=== PATIENT | female | born 1945 | race African-American/Black ===

== ENCOUNTER 2017-07-28 10:06 | Inpatient (IN) | payer OTHER, MEDICARE ==
[~2017-07-28] VITALS: Ht 162.6 cm; Wt 53.2 kg
[2017-07-28] VITALS (19 sets, daily range): BP systolic 152–209; BP diastolic 85–126; PULSE 76–100; RESP 15–18; TEMP 96.9–98.9; O2SAT 96–100
[~2017-07-28 10:06] MED LIST: CALC667T PO; CARV3.125 PO; CENTCHW3 PO; FURO1TAB93 PO; HYDRA50 PO; ISOS30 PO; LABE100 PO
[2017-07-28] MEDS ORDERED: SODIUM CHLORIDE 0.9% FLUSH 10 ML FLUSH IVF PRN (10:30)
[2017-07-28] MEDS ORDERED: hydrALAZINE HCL 25 MG TAB PO ONE (10:30)
--- NOTE | 2017-07-28 10:30 | PD ---
HPI Chief Complaint: Fall Time Seen by Provider: 10:14 Travel History International Travel<30 days: No Contact w/Intl Traveler<30days: No Traveled to known affect area: No History of Present Illness HPI 71 y/o female presents with her with reports that she had a fall and lost consciousness last night. She states she does not know how she fell. She states she hit her head. She denies any specific pain. Her states she has not had dialysis in a couple of months and is not taking her medications for her blood pressure. The patient states she does not know her medications but she would know them if she saw the bottle. She states she has not seen a physician for a couple of months. She cannot tell me whether she was told she could stop the dialysis or she just stopped it on her own. History is very limited PFS Past Medical History Asthma: No Autoimmune Disease: No Blood Disorders: No Anxiety: No Depression: No Heart Rhythm Problems: No Cancer: No Cardiovascular Problems: Yes (htn) High Cholesterol: Yes Chest Pain: Yes Congestive Heart Failure: Yes COPD: No Diabetes: No Endocrine: No Gastrointestinal Disorders: Yes Genitourinary: Yes Hepatitis: No Hiatal Hernia: No Hypertension: Yes Immune Disorder: No Implanted Vascular Access Dvce: Yes Musculoskeletal: No Neurologic: No Psychiatric: No Reproductive: No Respiratory: No Myocardial Infarction: No Renal Failure: Yes Thyroid Disease: No ?: Not Menopausal: Yes : 4 Past Surgical History Abdominal Surgery: No AICD: No Cardiac Surgery: No Section: Yes (*2) Ear Surgery: No Endocrine Surgery: No Eye Surgery: No Genitourinary Surgery: No Gynecologic Surgery: Yes (C SECTION, HYSTERECTOMY) Hysterectomy: Yes Joint Replacement: No Oral Surgery: No Pacemaker: No Thoracic Surgery: No Other Surgery: Yes (brain ) Social History Alcohol Use: No Tobacco Use: No Substance Use: No Allergies-Medications (Allergen,Severity, Reaction): Coded Allergies: No Known Allergies (Verified , 04/09/16) Reported Meds & Prescriptions Reported Meds & Active Scripts Active Review of Systems ROS Limitations: Poor Historian Except as stated in HPI: all other systems reviewed are Neg Physical Exam Exam Limitations: Poor Historian Narrative GENERAL: 71-year-old female in no apparent distress SKIN: Focused skin assessment warm/dry. HEAD: Atraumatic. Normocephalic. EYES: Pupils equal and round. No scleral icterus. No injection or drainage. ENT: No nasal bleeding or discharge. Mucous membranes pink and moist. NECK: Trachea midline. No JVD. Nontender in midline of her spine CARDIOVASCULAR: Regular rate and rhythm. No murmur appreciated. RESPIRATORY: No accessory muscle use. Clear to auscultation at apices. Breath sounds equal bilaterally. GASTROINTESTINAL: Abdomen soft, non-tender, nondistended. Hepatic and splenic margins not palpable. MUSCULOSKELETAL: No specific pain with range of motion of joints NEUROLOGICAL: Awake and alert. No obvious cranial nerve deficits. Motor grossly within normal limits. Normal speech. Data Data Last Documented VS Vital Signs Date Time Temp Pulse Resp B/P (MAP) Pulse Ox O2 Delivery O2 Flow Rate FiO2 07/28/17 12:05 76 18 194/94 (127) 97 Nasal Cannula 2.00 07/28/17 10:23 98.0 Orders Orders Electrocardiogram (07/28/17 10:23) Complete Blood Count With Diff (07/28/17 10:23) Comprehensive Metabolic Panel (07/28/17 10:23) Magnesium (Mg) (07/28/17 10:23) Ckmb (Isoenzyme) Profile (07/28/17 10:23) Troponin I (07/28/17 10:23) Act Partial Throm Time (Ptt) (07/28/17 10:23) Prothrombin Time / Inr (Pt) (07/28/17 10:23) Chest, Single Ap (07/28/17 10:23) Ct Brain W/O Iv Contrast(Rout) (07/28/17 10:23) Ecg Monitoring (07/28/17 10:23) Iv Access Insert/Monitor (07/28/17 10:23) Oximetry (07/28/17 10:23) Sodium Chloride 0.9% Flush (Ns Flush) (07/28/17 10:30) Pelvis, Ap Only (Routine) (07/28/17 ) Hydralazine (Apresoline) (07/28/17 10:30) CKMB (07/28/17 10:36) CKMB% (07/28/17 10:36) B-Type Natriuretic Peptide (07/28/17 11:43) Hydralazine (Apresoline) (07/28/17 11:45) Admit Order (Ed Use Only) (07/28/17 12:09) Labs Laboratory Tests Test 07/28/17 10:36 White Blood Count 4.7 TH/MM3 Red Blood Count 3.35 MIL/MM3 Hemoglobin 10.4 GM/DL Hematocrit 31.5 % Mean Corpuscular Volume 94.1 FL Mean Corpuscular Hemoglobin 31.0 PG Mean Corpuscular Hemoglobin Concent 33.0 % Red Cell Distribution Width 16.3 % Platelet Count 143 TH/MM3 Mean Platelet Volume 11.8 FL Neutrophils (%) (Auto) 73.0 % Lymphocytes (%) (Auto) 12.4 % Monocytes (%) (Auto) 9.1 % Eosinophils (%) (Auto) 2.7 % Basophils (%) (Auto) 2.8 % Neutrophils # (Auto) 3.4 TH/MM3 Lymphocytes # (Auto) 0.6 TH/MM3 Monocytes # (Auto) 0.4 TH/MM3 Eosinophils # (Auto) 0.1 TH/MM3 Basophils # (Auto) 0.1 TH/MM3 CBC Comment AUTO DIFF Differential Comment AUTO DIFF CONFIRMED Platelet Estimate NORMAL Platelet Morphology Comment ENLARGED Ovalocytes 1+ Acanthocytes OCC Keratocytes OCC Prothrombin Time 12.3 SEC Prothromb Time International Ratio 1.2 RATIO Activated Partial Thromboplast Time 25.3 SEC Blood Urea Nitrogen 78 MG/DL Creatinine 4.99 MG/DL Random Glucose 82 MG/DL Total Protein 6.9 GM/DL Albumin 3.6 GM/DL Calcium Level 9.1 MG/DL Magnesium Level 2.1 MG/DL Alkaline Phosphatase 122 U/L Aspartate Amino Transf (AST/SGOT) 38 U/L Alanine Aminotransferase (ALT/SGPT) 53 U/L Total Bilirubin 0.4 MG/DL Sodium Level 141 MEQ/L Potassium Level 4.7 MEQ/L Chloride Level 113 MEQ/L Carbon Dioxide Level 17.0 MEQ/L Anion Gap 11 MEQ/L Estimat Glomerular Filtration Rate 10 ML/MIN Total Creatine Kinase 242 U/L Creatine Kinase MB 6.6 NG/ML Creatine Kinase MB % 2.7 % Troponin I 0.05 NG/ML MDM Medical Decision Making Medical Screen Exam Complete: Yes Emergency Medical Condition: Yes Medical Record Reviewed: Yes (Past history confirmed) Interpretation(s) CBC & BMP Diagram 07/28/17 10:36 Total Protein 6.9, Albumin 3.6, Calcium Level 9.1, Magnesium Level 2.1, Alkaline Phosphatase 122 H, Aspartate Amino Transf (AST/SGOT) 38 H, Alanine Aminotransferase (ALT/SGPT) 53, Total Bilirubin 0.4 Last [address] 07/28/17 1023 Signed Impressions: Service Date/Time: Friday, July 28, 2017 11:15 - CONCLUSION: 1. Chronic ischemic small vessel vasculopathy. No acute intracranial abnormality. Justin Herrmann MD Chest X-Ray 07/28/17 1023 Signed Impressions: Service Date/Time: Friday, July 28, 2017 11:25 - CONCLUSION: 1. Cardiomegaly with increase in pulmonary vascularity. No pulmonary edema. Justin Herrmann MD Pelvis X-Ray 07/28/17 0000 Signed Impressions: Service Date/Time: Friday, July 28, 2017 11:27 - CONCLUSION: No acute fracture. Justin Herrmann MD Differential Diagnosis Syncope, electrolyte abnormality, bleed, hypertensive urgency Narrative Course On review of records patient has history where she stopped dialysis for buddhism reasons for a couple months and arrived with fluid overload. Her blood pressure at that time was controlled with hydralazine, Lasix, Imdur. We will check blood work, EKG, chest x-ray and dose with hydralazine and reevaluate We will repeat hydralazine to prior home dose for a total of 75 mg and admit to the hospital for further care. Physician Communication Physician Communication resident team agrees to admit Diagnosis Primary Impression: Syncope Qualified Codes: R55 - Syncope and collapse Additional Impressions: [id number] kidney injury Qualified Codes: N17.9 - Acute kidney failure, unspecified; N18.9 - Chronic kidney disease, unspecified Hypertension Qualified Codes: I10 - Essential (primary) hypertension Admitting Information Admitting Physician Requests: Admit Jaky Tao MD Jul 28, 2017 10:30
[2017-07-28 10:54] LABS: AUTOMATED NEUTROPHIL # 3.4 TH/MM3 (1.8-7.7); BASOPHIL # 0.1 TH/MM3 (0-0.2); BASOPHIL % 2.8 % (0.0-2.0); EOSINOPHIL # 0.1 TH/MM3 (0-0.4); EOSINOPHIL % 2.7 % (0.0-4.0); HEMATOCRIT 31.5 % (35.0-46.0); HEMOGLOBIN 10.4 GM/DL (11.6-15.3); LYMPH % 12.4 % (9.0-44.0); LYMPHOCYTE # 0.6 TH/MM3 (1.0-4.8); MEAN CELL VOLUME 94.1 FL (80.0-100.0); MEAN PLATELET VOLUME 11.8 FL (7.0-11.0); MONO % 9.1 % (0.0-8.0); MONOCYTE # 0.4 TH/MM3 (0-0.9); PLATELET COUNT 143 TH/MM3 (150-450); RED BLOOD COUNT 3.35 MIL/MM3 (4.00-5.30); RED CELL DISTRIBUTION WIDTH 16.3 % (11.6-17.2); WHITE BLOOD COUNT 4.7 TH/MM3 (4.0-11.0)
[2017-07-28 11:03] LABS: INTERNATIONAL NORMALIZED RATIO 1.2 RATIO; PROTHROMBIN TIME - PATIENT 12.3 SEC (9.8-11.6)
[2017-07-28 11:16] LABS: ALBUMIN 3.6 GM/DL (3.4-5.0); AST (GOT) 38 U/L (15-37); BLOOD UREA NITROGEN 78 MG/DL (7-18); CALCIUM 9.1 MG/DL (8.5-10.1); CHLORIDE 113 MEQ/L (98-107); CREATININE 4.99 MG/DL (0.50-1.00); GLOMERULAR FILTRATION RATE 10 ML/MIN (>89); GLUCOSE,RANDOM 82 MG/DL (74-106); MAGNESIUM 2.1 MG/DL (1.5-2.5); SODIUM (NA) 141 MEQ/L (136-145)
[2017-07-28 11:17] LABS: ALT (GPT) 53 U/L (10-53)
[2017-07-28 11:21] LABS: ALKALINE PHOSPHATASE 122 U/L (45-117); TOTAL BILIRUBIN ADULT 0.4 MG/DL (0.2-1.0); TOTAL PROTEIN 6.9 GM/DL (6.4-8.2); TROPONIN I 0.05 NG/ML (0.02-0.05)
--- NOTE | 2017-07-28 11:39 | RADRPT ---
EXAM DATE/TIME: 07/28/2017 11:25 [facility] COMPARISON: CHEST SINGLE AP, April 09, 2016, 18:13. INDICATIONS : Possible syncopal episode. MEDICAL HISTORY : Hypertension. Congestive heart failure. SURGICAL HISTORY : None. ENCOUNTER: Initial ACUITY: 1 day PAIN SCORE: 0/10 LOCATION: Bilateral chest FINDINGS: A single view of the chest demonstrates the lungs to be symmetrically aerated without evidence of mas s, infiltrate or effusion. Cardiomegaly with increase in pulmonary vascularity. The cardiomediastinal contours are unremarkable. Osseous structures are intact. CONCLUSION: 1. Cardiomegaly with increase in pulmonary vascularity. No pulmonary edema. Justin Herrmann MD on July 28, 2017 at 11:37 Board Certified Radiologist. This report was verified electronically.
--- NOTE | 2017-07-28 11:40 | RADRPT ---
EXAM DATE/TIME: 07/28/2017 11:27 [facility] COMPARISON: No previous studies available for comparison. INDICATIONS : Fall; possible syncopal episode. MEDICAL HISTORY : None. SURGICAL HISTORY : None. ENCOUNTER: Initial ACUITY: 1 day PAIN SCORE: 0/10 LOCATION: Bilateral pelvis FINDINGS: A single frontal view of the pelvis demonstrates no evidence of fracture. Mild degenerative changes o f each hip and lower lumbar spine. The bony pelvic ring is intact. Bony mineralization is normal. T he soft tissues are intact. CONCLUSION: No acute fracture. Justin Herrmann MD on July 28, 2017 at 11:37 Board Certified Radiologist. This report was verified electronically.
--- NOTE | 2017-07-28 11:43 | RADRPT ---
EXAM DATE/TIME: 07/28/2017 11:15 [facility] COMPARISON: CT BRAIN W/O CONTRAST, December 27, 2014, 3:18. INDICATIONS : Dizziness, fall, LOC, yesterday. RADIATION DOSE: 56.35 CTDIvol (mGy) MEDICAL HISTORY : Cardiovascular disease. Congestive heart failure. Hypertension.Renal failure SURGICAL HISTORY : Hysterectomy. ENCOUNTER: Initial ACUITY: 2 days PAIN SCALE: 0/10 LOCATION: cranial TECHNIQUE: Multiple contiguous axial images were obtained of the head. Using automated exposure control and adj ustment of the mA and/or kV according to patient size, radiation dose was kept as low as reasonably a chievable to obtain optimal diagnostic quality images. DICOM format image data is available electro nically for review and comparison. FINDINGS: CEREBRUM: Areas of low-attenuation are seen throughout the white matter. The ventricles are normal for age. No evidence of midline shift, mass lesion, hemorrhage or acute infarction. No extra-axial fluid collec tions are seen. POSTERIOR FOSSA: The cerebellum and brainstem are intact. The 4th ventricle is midline. The cerebellopontine angle i s unremarkable. EXTRACRANIAL: The visualized portion of the orbits is intact. SKULL: The calvaria is intact. No evidence of skull fracture. CONCLUSION: 1. Chronic ischemic small vessel vasculopathy. No acute intracranial abnormality. Justin Herrmann MD on July 28, 2017 at 11:41 Board Certified Radiologist. This report was verified electronically.
[2017-07-28] MEDS ORDERED: hydrALAZINE HCL 50 MG TAB PO ONE (11:45)
[2017-07-28 11:47] LABS: ACANTHOCYTES OCC (NORMAL); KERATOCYTES OCC (NORMAL); OVALOCYTES 1+ (NORMAL)
--- NOTE | 2017-07-28 13:24 | HHI.HP ---
[facility] Service Family Medicine Primary Care Physician Thong Leon MD Admission Diagnosis syncope, renal failure Diagnoses: International Travel<30 Days: No Contact w/Intl Traveler<30days: No Known Affected Area: No History of Present Illness 71 y/o F, comes in after fall last night. She came into the ER today because the brought her in out of concern that she needs her dialysis. She has gone 6 weeks without dialysis and per patient her hand spring repairer told her she could stop dialysis for as long as she wants because it is only going to prolong her life for a few years. She has continued to have a good appetite and eat well. Denies any dizzyness, mental change, or fatigue. She has continued to urinate multiple times per day. She states she overall feels very good without the dialysis. She has some R elbow pain from the fall last night but she does not have pain anywhere else. She did not lose consciousness at the time of the fall. She does not have any residual headache. She denies any CP/SOB/dizziness. Denies any fever/chills. Denies any recent flu/cold sx. Dr. Leon PCP - last seen >1 year ago Dialysis doctor - last seen months ago (Sarah Iniguez MD R2) Review of Systems Constitutional: DENIES: Fatigue, Fever Endocrine: DENIES: Polydipsia, Polyuria Eyes: DENIES: Diplopia, Eye inflammation Ears, nose, mouth, throat: DENIES: Nasal discharge, Oral lesions Respiratory: DENIES: Shortness of breath Cardiovascular: DENIES: Dyspnea on Exertion, PND Gastrointestinal: DENIES: Black stools, Bloody stools Genitourinary: DENIES: Dysuria, Nocturia Musculoskeletal: DENIES: Back pain Integumentary: DENIES: Rash Neurologic: DENIES: Headache, Localized weakness Psychiatric: DENIES: Depression, Hallucinations (Sarah Iniguez MD R2) Past Family Social History Past Medical History Past Medical History Hypertension Gastroesophageal reflux disease Chronic kidney disease stage 4. used to be on HD ( last one was 3 months ago Diabetic neuropathy? Per EMR pt has the diagnosis below, however pt Pt denies them as she states she wasn't aware. Cataract/glaucoma Congestive heart failure, pulmonary hypertension - Echo 2016 : LVH, EF 50-55%, severely increased pulmonary artery pressure (66) Dyslipidemia ?History of pseudotumor cerebri? /History of idiopathic intracranial hypertension? 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 SKIN: No rashes, ecchymoses or lesions. Cool and dry. HEAD: Atraumatic. Normocephalic. No temporal or scalp tenderness. EYES: Pupils equal round and reactive. Extraocular motions intact. No scleral icterus. No injection or drainage. ENT: Nose without bleeding, purulent drainage or septal hematoma. Throat without erythema, tonsillar hypertrophy or exudate. Uvula midline. Airway patent. NECK: Trachea midline. No JVD or lymphadenopathy. Supple, nontender, no meningeal signs. CARDIOVASCULAR: Regular rate and rhythm without murmurs, gallops, or rubs. RESPIRATORY: Clear to auscultation. Breath sounds equal bilaterally. No wheezes , rales, or rhonchi. GASTROINTESTINAL: Abdomen soft, non-tender, nondistended. No hepato-splenomegaly , or palpable masses. No guarding. MUSCULOSKELETAL: AV fistula in place on L arm. Extremities without clubbing, cyanosis, or edema. No joint tenderness, effusion, or edema noted. No calf tenderness. Negative Homans sign bilaterally. NEUROLOGICAL: Awake and alert. Cranial nerves II through XII intact. Motor and sensory grossly within normal limits. Five out of 5 muscle strength in all muscle groups. Normal speech. Laboratory Laboratory Tests Test 07/28/17 10:36 White Blood Count 4.7 Red Blood Count 3.35 Hemoglobin 10.4 Hematocrit 31.5 Mean Corpuscular Volume 94.1 Mean Corpuscular Hemoglobin 31.0 Mean Corpuscular Hemoglobin Concent 33.0 Red Cell Distribution Width 16.3 Platelet Count 143 Mean Platelet Volume 11.8 Neutrophils (%) (Auto) 73.0 Lymphocytes (%) (Auto) 12.4 Monocytes (%) (Auto) 9.1 Eosinophils (%) (Auto) 2.7 Basophils (%) (Auto) 2.8 Neutrophils # (Auto) 3.4 Lymphocytes # (Auto) 0.6 Monocytes # (Auto) 0.4 Eosinophils # (Auto) 0.1 Basophils # (Auto) 0.1 CBC Comment AUTO DIFF Differential Comment AUTO DIFF CONFIRMED Platelet Estimate NORMAL Platelet Morphology Comment ENLARGED Ovalocytes 1+ Acanthocytes OCC Keratocytes OCC Prothrombin Time 12.3 Prothromb Time International Ratio 1.2 Activated Partial Thromboplast Time 25.3 Blood Urea Nitrogen 78 Creatinine 4.99 Random Glucose 82 Total Protein 6.9 Albumin 3.6 Calcium Level 9.1 Magnesium Level 2.1 Alkaline Phosphatase 122 Aspartate Amino Transf (AST/SGOT) 38 Alanine Aminotransferase (ALT/SGPT) 53 Total Bilirubin 0.4 Sodium Level 141 Potassium Level 4.7 Chloride Level 113 Carbon Dioxide Level 17.0 Anion Gap 11 Estimat Glomerular Filtration Rate 10 Total Creatine Kinase 242 Creatine Kinase MB 6.6 Creatine Kinase MB % 2.7 Troponin I 0.05 (Sarah Iniguez MD R2) Result Diagram: 07/28/17 1036 07/28/17 1036 Caprini VTE Risk Assessment Caprini VTE Risk Assessment: No/Low Risk (score <= 1) Caprini Risk Assessment Model Point Value = 1 Point Value = 2 Point Value = 3 Point Value = 5 Age 41-60 Minor surgery BMI > 25 kg/m2 Swollen legs Varicose veins or History of unexplained or recurrent spontaneous Oral contraceptives or hormone replacement Sepsis (< 1 month) Serious lung disease, including pneumonia (< 1 month) Abnormal pulmonary function Acute myocardial infarction Congestive heart failure (< 1 month) History of inflammatory bowel disease Medical patient at bed rest Age 61-74 Arthroscopic surgery Major open surgery (> 45 min) Laparoscopic surgery (> 45 min) Malignancy Confined to bed (> 72 hours) Immobilizing plaster cast Central venous access Age >= 75 History of VTE Family history of VTE Factor V Leiden Prothrombin [id number] Lupus anticoagulant Anticardiolipin antibodies Elevated serum homocysteine Heparin-induced thrombocytopenia Other congenital or acquired thrombophilia Stroke (< 1 month) Elective arthroplasty Hip, pelvis, or leg fracture Acute spinal cord injury (< 1 month) Prophylaxis Regimen Total Risk Factor Score Risk Level Prophylaxis Regimen 0-1 Low Early ambulation 2 Moderate Order ONE of the following: *Sequential Compression Device (SCD) *Heparin 5000 units SQ BID 3-4 Higher Order ONE of the following medications: *Heparin 5000 units SQ TID *Enoxaparin/Lovenox 40 mg SQ daily (WT < 150 kg, CrCl > 30 mL/min) *Enoxaparin/Lovenox 30 mg SQ daily (WT < 150 kg, CrCl > 10-29 mL/min) *Enoxaparin/Lovenox 30 mg SQ BID (WT < 150 kg, CrCl > 30 mL/min) AND/OR *Sequential Compression Device (SCD) 5 or more Highest Order ONE of the following medications: *Heparin 5000 units SQ TID (Preferred with Epidurals) *Enoxaparin/Lovenox 40 mg SQ daily (WT < 150 kg, CrCl > 30 mL/min) *Enoxaparin/Lovenox 30 mg SQ daily (WT < 150 kg, CrCl > 10-29 mL/min) *Enoxaparin/Lovenox 30 mg SQ BID (WT < 150 kg, CrCl > 30 mL/min) AND *Sequential Compression Device (SCD) (Sarah Iniguez MD R2) Assessment and Plan Assessment and Plan 71-year-old female, past medical history of hypertension, end-stage renal disease on dialysis and CHF, presents after a prolonged period without dialysis and creatinine of 4.9. Patient has a history of noncompliance with medications and dialysis treatments. Code Status Alternative code - No compressions - Temporary intubation allowed Discussed Condition With Dr. Carpenter (Sarah Iniguez MD R2) Attending Attestation Patient seen and examined, discussed with resident team. I agree with assessment and management as documented and discussed with me. The patient has been seen and examined. The chart and all resident notes have been reviewed. I agree that inpatient care is appropriate and that a two midnight stay is expected for the reasons documented in the resident history and physical. I have discussed this with the resident and certify the resident s order for inpatient admission. Amanda Chávez is a 71 yo lady with known ESRD originally on dialysis admitted after a fall. She was found to be profoundly hypertensive in the ER and apparently has not had dialysis for 6-8 weeks. Additional diagnoses: Anemia of chronic disease: stable. No obvious active bleeding. Will monitor. (Che Carpenter MD) Problem List: (1) End stage renal disease on dialysis ICD Codes: N18.6 - End stage renal disease; Z99.2 - Dependence on renal dialysis Status: Chronic Plan: Creatinine 4.9, BUN 78 Follow-up with hand spring repairer consult known to patient Follow-up BMP in a.m. Caution with IV fluid hydration Monitor for signs of uremia (2) Hypertension ICD Codes: I10 - Hypertension Status: Chronic Plan: Blood Pressure 200/94 on admission Follow up BPs Add amlodipine 10 mg daily Hydralazine when necessary (3) Elevated troponin ICD Codes: R74.8 - Abnormal levels of other serum enzymes Status: Acute Plan: Initial troponin 0.05, patient is chest pain-free Follow-up troponin and EKG trend (4) CHF (congestive heart failure) ICD Codes: I50.9 - Heart failure, unspecified Status: Chronic Plan: CHF and pulmonary hypertension on echocardiogram in 2016 Follow up repeat echo BNP over 5000 Chest x-ray with cardiomegaly and increase in pulmonary vascularity, no pulmonary edema Cautious IV fluids (5) GERD (gastroesophageal reflux disease) ICD Codes: K21.9 - Gastro-esophageal reflux disease without esophagitis Status: Chronic Plan: Protonix 40 daily (6) FEN/Ppx Status: Acute Plan: Fluids: PO Electrolytes: f/u BMP in AM and replete accordingly Nutrition: renal diet GI ppx: protonix DVT ppx: Heparin 5000 TID (Sarah Iniguez MD R2) Physician Certification 2 Midnight Certification Type: Admission for Inpatient Services Order for Inpatient Services The services are ordered in accordance with Medicare regulations or non- Medicare payer requirements, as applicable. In the case of services not specified as inpatient-only, they are appropriately provided as inpatient services in accordance with the 2-midnight benchmark. Estimated LOS (days): 2 days is the estimated time the patient will need to remain in the hospital, assuming treatment plan goals are met and no additional complications. Post-Hospital Plan: Not yet determined (Sarah Iniguez MD R2) Problem Qualifiers (1) Hypertension: Qualified Codes: I10 - Essential (primary) hypertension (2) CHF (congestive heart failure): Qualified Codes: I50.9 - Heart failure, unspecified (3) GERD (gastroesophageal reflux disease): Qualified Codes: K21.9 - Gastro-esophageal reflux disease without esophagitis Sarah Iniguez MD R2 Jul 28, 2017 13:24 Che Carpenter MD Jul 29, 2017 16:19
[2017-07-28] MEDS ORDERED: BISACODYL 10 MG SUPP RECTAL PRN (14:45)
[2017-07-28] MEDS ORDERED: SODIUM CHLORIDE 0.9% FLUSH 10 ML FLUSH IV FLUSH PRN (14:45)
[2017-07-28] MEDS ORDERED: ONDANSETRON HCL 4 MG/2 ML VIAL IVP PRN (14:45)
[2017-07-28] MEDS ORDERED: ACETAMINOPHEN 325 MG TAB PO PRN (14:45)
[2017-07-28] MEDS ORDERED: MAGNESIUM HYDROXIDE SUSP 30 ML CUP PO PRN (14:45)
[2017-07-28] MEDS ORDERED: NALOXONE HCL 0.4 MG/ML AMP IV PUSH PRN (14:45)
[2017-07-28] MEDS ORDERED: LACTULOSE SYRUP 20 GM/30 ML CUP PO PRN (14:45)
[2017-07-28] MEDS ORDERED: SENNOSIDES 8.6 MG TAB PO PRN (14:45)
[2017-07-28] MEDS: PANTOPRAZOLE SOD 40 MG DELAYED RELEASE TAB PO SCH (15:34)
[2017-07-28] MEDS: HEPARIN SODIUM - SQ 10,000 UNITS/ML VIAL SQ SCH ×2 (15:34→23:35)
--- NOTE | 2017-07-28 16:08 | PD.CONS ---
HPI Service Nephrology Consult Requested By Dr. Carpenter Reason for Consult End-stage renal disease Primary Care Physician Thong Leon MD History of Present Illness Patient is a 71-year-old female with history of hypertension, chronic kidney disease, ESRD, who states that that she has stopped her dialysis after talking to Dr. Valencia, last dialysis was 3 months ago and she has been maintaining, she was moving some furniture and had a fall after which she became short of breath and she came to the emergency blood pressure was high a creatinine is 4.9 She denies history of diabetes mellitus mentioned in the records Review of Systems Constitutional: COMPLAINS OF: Fatigue Respiratory: COMPLAINS OF: Shortness of breath Musculoskeletal: COMPLAINS OF: Joint pain, Muscle aches Past Family Social History Allergies: Coded Allergies: No Known Allergies (Verified , 04/09/16) Past Medical History Hypertension Gastroesophageal reflux disease Chronic kidney disease stage 5. used to be on HD last one was months ago Diabetic ? Cataract/glaucoma Congestive heart failure Dyslipidemia History of pseudotumor cerebri? /History of idiopathic intracranial hypertension Past Surgical History Hysterectomy AV fistula left Reported Medications Reported Meds & Active Scripts Active Active Ordered Medications Current Medications Medications (Trade) Dose Ordered Sig/So Route Start Time Stop Time Status Last Admin (NS Flush) 2 ml UNSCH PRN IV FLUSH 07/28/17 14:45 (NS Flush) 2 ml BID IV FLUSH 07/28/17 21:00 (Tylenol) 650 mg Q4H PRN PO 07/28/17 14:45 (Zofran Inj) 4 mg Q6H PRN IVP 07/28/17 14:45 (Heparin Inj) 5,000 units Q8H SQ 07/28/17 15:00 07/28/17 15:34 (Narcan Inj) 0.4 mg UNSCH PRN IV PUSH 07/28/17 14:45 (Milk Of Magnesia Liq) 30 ml Q12H PRN PO 07/28/17 14:45 (Senokot) 17.2 mg Q12H PRN PO 07/28/17 14:45 (Dulcolax Supp) 10 mg DAILY PRN RECTAL 07/28/17 14:45 (Lactulose Liq) 30 ml DAILY PRN PO 07/28/17 14:45 (Apresoline Inj) 10 mg Q6H PRN IV PUSH 07/28/17 15:15 (Norvasc) 10 mg DAILY PO 07/28/17 15:15 07/28/17 15:34 (Protonix) 40 mg DAILY PO 07/28/17 15:15 07/28/17 15:34 Family History Noncontributory Social History Denies smoking or alcohol use Physical Exam Vital Signs Vital Signs Date Time Temp Pulse Resp B/P (MAP) Pulse Ox O2 Delivery O2 Flow Rate FiO2 07/28/17 15:25 97.5 82 18 180/85 (116) 100 07/28/17 14:31 88 18 152/96 (114) 99 Room Air 07/28/17 13:26 92 18 172/105 (127) 97 Nasal Cannula 2.00 07/28/17 12:05 76 18 194/94 (127) 97 Nasal Cannula 2.00 07/28/17 11:54 76 18 202/114 (143) 96 Room Air 07/28/17 10:35 96 18 99 Room Air 07/28/17 10:26 97 Nasal Cannula 2.00 07/28/17 10:23 98.0 85 18 209/126 (153) 100 07/28/17 10:07 96.9 94 18 200/94 (129) 96 Laboratory Laboratory Tests Test 07/28/17 10:36 White Blood Count 4.7 Red Blood Count 3.35 Hemoglobin 10.4 Hematocrit 31.5 Mean Corpuscular Volume 94.1 Mean Corpuscular Hemoglobin 31.0 Mean Corpuscular Hemoglobin Concent 33.0 Red Cell Distribution Width 16.3 Platelet Count 143 Mean Platelet Volume 11.8 Neutrophils (%) (Auto) 73.0 Lymphocytes (%) (Auto) 12.4 Monocytes (%) (Auto) 9.1 Eosinophils (%) (Auto) 2.7 Basophils (%) (Auto) 2.8 Neutrophils # (Auto) 3.4 Lymphocytes # (Auto) 0.6 Monocytes # (Auto) 0.4 Eosinophils # (Auto) 0.1 Basophils # (Auto) 0.1 CBC Comment AUTO DIFF Differential Comment AUTO DIFF CONFIRMED Platelet Estimate NORMAL Platelet Morphology Comment ENLARGED Ovalocytes 1+ Acanthocytes OCC Keratocytes OCC Prothrombin Time 12.3 Prothromb Time International Ratio 1.2 Activated Partial Thromboplast Time 25.3 Blood Urea Nitrogen 78 Creatinine 4.99 Random Glucose 82 Total Protein 6.9 Albumin 3.6 Calcium Level 9.1 Magnesium Level 2.1 Alkaline Phosphatase 122 Aspartate Amino Transf (AST/SGOT) 38 Alanine Aminotransferase (ALT/SGPT) 53 Total Bilirubin 0.4 Sodium Level 141 Potassium Level 4.7 Chloride Level 113 Carbon Dioxide Level 17.0 Anion Gap 11 Estimat Glomerular Filtration Rate 10 Total Creatine Kinase 242 Creatine Kinase MB 6.6 Creatine Kinase MB % 2.7 Troponin I 0.05 Result Diagram: 07/28/17 1036 07/28/17 1036 Assessment and Plan Problem List: (1) End stage renal disease on dialysis ICD Codes: N18.6 - End stage renal disease; Z99.2 - Dependence on renal dialysis Status: Acute Plan: Patient has a very low GFR She does not wish to continue dialysis And it was discontinued I will check PTH, vitamin D 25 level and phosphorus She would like to talk to Dr. Valencia (2) Hypertension ICD Codes: I10 - Hypertension Status: Chronic Plan: Uncontrolled continue to monitor Problem Qualifiers (1) Hypertension: Qualified Codes: I10 - Essential (primary) hypertension Sheila Parker MD Jul 28, 2017 16:08
[2017-07-28] MEDS: SODIUM CHLORIDE 0.9% FLUSH 10 ML FLUSH IV FLUSH SCH (20:05)
[2017-07-28] MEDS: hydrALAZINE HCL 20 MG/ML VIAL IV PUSH PRN (23:40)
[2017-07-29] VITALS (23 sets, daily range): BP systolic 138–185; BP diastolic 77–111; PULSE 70–90; RESP 16–20; TEMP 97.7–98.7; O2SAT 95–100
[2017-07-29] MEDS: HEPARIN SODIUM - SQ 10,000 UNITS/ML VIAL SQ SCH ×3 (07:21→23:00)
[2017-07-29 08:05] LABS: AUTOMATED NEUTROPHIL # 3.4 TH/MM3 (1.8-7.7); BASOPHIL # 0.1 TH/MM3 (0-0.2); BASOPHIL % 2.5 % (0.0-2.0); EOSINOPHIL # 0.1 TH/MM3 (0-0.4); EOSINOPHIL % 2.9 % (0.0-4.0); HEMATOCRIT 33.7 % (35.0-46.0); HEMOGLOBIN 11.2 GM/DL (11.6-15.3); LYMPH % 9.3 % (9.0-44.0); LYMPHOCYTE # 0.4 TH/MM3 (1.0-4.8); MEAN CELL VOLUME 92.6 FL (80.0-100.0); MEAN CORPUSCULAR HEMOGLOBIN 30.7 PG (27.0-34.0); MEAN CORPUSCULAR HGB CONC 33.2 % (32.0-36.0); MEAN PLATELET VOLUME 11.7 FL (7.0-11.0); MONO % 7.6 % (0.0-8.0); MONOCYTE # 0.3 TH/MM3 (0-0.9); NEUT % 77.7 % (16.0-70.0); PLATELET COUNT 150 TH/MM3 (150-450); RED BLOOD COUNT 3.64 MIL/MM3 (4.00-5.30); RED CELL DISTRIBUTION WIDTH 16.4 % (11.6-17.2); WHITE BLOOD COUNT 4.4 TH/MM3 (4.0-11.0)
[2017-07-29] MEDS: PANTOPRAZOLE SOD 40 MG DELAYED RELEASE TAB PO SCH (08:08)
[2017-07-29] MEDS: hydrALAZINE HCL 20 MG/ML VIAL IV PUSH PRN (08:08)
[2017-07-29 08:13] LABS: INTERNATIONAL NORMALIZED RATIO 1.2 RATIO; PROTHROMBIN TIME - PATIENT 12.4 SEC (9.8-11.6)
[2017-07-29 08:30] LABS: ALBUMIN 3.3 GM/DL (3.4-5.0); ALT (GPT) 45 U/L (10-53); AST (GOT) 30 U/L (15-37); BICARBONATE 16.5 MEQ/L (21.0-32.0); BLOOD UREA NITROGEN 75 MG/DL (7-18); CALCIUM 8.4 MG/DL (8.5-10.1); CHLORIDE 112 MEQ/L (98-107); CREATININE 4.63 MG/DL (0.50-1.00); GLOMERULAR FILTRATION RATE 11 ML/MIN (>89); GLUCOSE,RANDOM 88 MG/DL (74-106); MAGNESIUM 2.1 MG/DL (1.5-2.5); SODIUM (NA) 142 MEQ/L (136-145)
[2017-07-29 08:31] LABS: ALKALINE PHOSPHATASE 117 U/L (45-117); TOTAL BILIRUBIN ADULT 0.4 MG/DL (0.2-1.0); TOTAL PROTEIN 6.4 GM/DL (6.4-8.2)
[2017-07-29 08:59] LABS: OVALOCYTES 1+ (NORMAL)
[2017-07-29] MEDS ORDERED: PILL SPLITTER OTHER PRN (09:30)
[2017-07-29] MEDS: METOPROLOL TARTRATE 25 MG TAB PO SCH ×2 (11:26→20:11)
[2017-07-29 11:34] LABS: BILIRUBIN, URINE NEG (NEG); BLOOD, URINE NEG (NEG); GLUCOSE,URINE NEG (NEG); KETONE, URINE NEG (NEG); MUCUS URINE FEW /lpf (OCC); NITRITE,URINE NEG (NEG); PH, URINE 5.5 (5.0-8.5); SQUAMOUS EPITHELIAL CELL URINE <1 /hpf (0-5); URINE COLOR YELLOW (YELLW/STRAW); URINE LEUKOCYTE ESTERASE NEG (NEG)
[2017-07-29] MEDS: SODIUM CHLORIDE 0.9% FLUSH 10 ML FLUSH IV FLUSH SCH ×2 (11:35→20:11)
--- NOTE | 2017-07-29 14:35 | HHI.FPPN ---
Subjective Remarks No acute issues overnight. Vitals are stable, patient remains afebrile. She states that her family would like her to do dialysis and she agrees with their preference. She notes that dialysis is tolerable. She denies any chest pain, shortness of breath, fever, chills, nausea or vomiting. She continues to void and has a total output of 600 ml over the past 24 hours. (Lesly Richardson MD, R3) Objective Vitals Vital Signs Date Time Temp Pulse Resp B/P (MAP) Pulse Ox O2 Delivery O2 Flow Rate FiO2 07/29/17 11:40 97.7 87 20 158/88 (111) 100 07/29/17 09:49 97 07/29/17 08:00 89 07/29/17 07:32 98.3 83 20 185/111 (135) 100 138/77 (97) 07/29/17 06:00 90 07/29/17 05:03 90 07/29/17 04:36 98.7 86 16 162/94 (116) 98 07/29/17 04:01 77 07/29/17 03:00 76 07/29/17 02:00 78 07/29/17 01:00 98 21 07/29/17 01:00 80 07/29/17 00:08 87 07/28/17 23:35 98.9 88 16 181/109 (133) 98 07/28/17 23:00 100 07/28/17 22:00 82 07/28/17 21:00 82 07/28/17 20:05 82 07/28/17 20:01 98.5 82 15 167/98 (121) 98 07/28/17 19:00 76 07/28/17 18:00 86 07/28/17 17:00 86 07/28/17 16:37 81 07/28/17 16:00 76 07/28/17 15:25 97.5 82 18 180/85 (116) 100 07/28/17 14:31 88 18 152/96 (114) 99 Room Air I/O 07/28/17 07/28/17 07/28/17 07/29/17 07/29/17 07/29/17 07:00 15:00 23:00 07:00 15:00 23:00 Intake Total 1080 ml Output Total 600 ml Balance -600 ml 1080 ml Intake Oral 1080 ml Output Urine Total 600 ml # Voids 1 1 1 # Bowel Movements 1 (Lesly Richardson MD, R3) Result Diagram: 07/29/17 0745 07/29/17 0745 Imaging Last Impressions Head CT 07/28/17 1023 Signed Impressions: Service Date/Time: Friday, July 28, 2017 11:15 - CONCLUSION: 1. Chronic ischemic small vessel vasculopathy. No acute intracranial abnormality. Justin Herrmann MD Chest X-Ray 07/28/17 1023 Signed Impressions: Service Date/Time: Friday, July 28, 2017 11:25 - CONCLUSION: 1. Cardiomegaly with increase in pulmonary vascularity. No pulmonary edema. Justin Herrmann MD Pelvis X-Ray 07/28/17 0000 Signed Impressions: Service Date/Time: Friday, July 28, 2017 11:27 - CONCLUSION: No acute fracture. Justin Herrmann MD Objective Remarks GENERAL: Well-nourished, well-developed female patient lying comfortably in bed , in no acute distress. SKIN: Warm and dry. No rashes or lesions present. EYES: No scleral icterus. No conjunctival injection or drainage. Pupils equal, round, reactive to light and accommodation. Extraocular movements intact. THROAT: Moist mucous membranes. NECK: Supple, trachea midline. CARDIOVASCULAR: Regular rate and rhythm without murmurs, gallops, or rubs. Strong radial and pedal pulses. CHEST: Symmetric chest expansion with respiration. RESPIRATORY: Breath sounds clear to auscultation bilaterally. No accessory muscle use. No wheezes, rhonchi or rales. GASTROINTESTINAL: Abdomen soft, non-tender, nondistended. MUSCULOSKELETAL: No cyanosis or edema. No nail changes. NEURO: Cranial nerves II through XII grossly intact. Good muscle tone. PSYCH: Normal mood and affect. Good eye contact. Good insight and judgment. Normal speech. (Lesly Richardson MD, R3) A/P Assessment and Plan Patient is a 71-year-old female with a past medical history of hypertension, end -stage renal disease on dialysis, and CHF who presented after a fall. She has gone without dialysis for a prolonged period and has a history of noncompliance with medications and dialysis treatments. She was admitted for resumption of dialysis. Discharge Planning Pending resumption of dialysis. (Lesly Richardson MD, R3) Attending Attestation Patient seen, examined, and discussed with resident team. I agree with assessment and management as documented and discussed with me. Appreciate nephrology, palliative care. (Che Carpenter MD) Problem List: (1) End stage renal disease on dialysis ICD Codes: N18.6 - End stage renal disease; Z99.2 - Dependence on renal dialysis Status: Chronic Plan: Creatinine 4.99, trending down to 4.63 today Nephrology, Dr. Valencia, consulted. Appreciate recommendations. Patient requests resumption of dialysis today. Continue to monitor renal function Caution with IV fluid hydration Monitor for signs of uremia (2) Hypertension ICD Codes: I10 - Hypertension Status: Chronic Plan: Blood Pressure 200/94 on admission Now ranging 130-180s/80-110s Continue to monitor BP Continue amlodipine 10 mg daily Add Metoprolol 12.5mg PO Q12H Hydralazine 10mg IV Q6H PRN SBP >170, DBP >100 (3) CHF (congestive heart failure) ICD Codes: I50.9 - Heart failure, unspecified Status: Chronic Plan: CHF and pulmonary hypertension on echocardiogram in 2016 BNP >5000 on admission, trending down to 3250 today Chest x-ray shows cardiomegaly and increase in pulmonary vascularity, no pulmonary edema Obtain Echo Cautious with IV fluids (4) GERD (gastroesophageal reflux disease) ICD Codes: K21.9 - Gastro-esophageal reflux disease without esophagitis Status: Chronic Plan: Protonix 40 daily (5) FEN/Ppx Status: Acute Plan: Fluids: PO Electrolytes: wnl, continue to monitor and replete accordingly Nutrition: renal diet DVT ppx: Heparin 5000 TID (Lesly Richardson MD, R3) Problem Qualifiers (1) Hypertension: Qualified Codes: I10 - Essential (primary) hypertension (2) CHF (congestive heart failure): Qualified Codes: I50.9 - Heart failure, unspecified (3) GERD (gastroesophageal reflux disease): Qualified Codes: K21.9 - Gastro-esophageal reflux disease without esophagitis Lesly Richardson MD, R3 Jul 29, 2017 14:35 Che Carpenter MD Jul 29, 2017 16:39
[2017-07-29] MEDS ORDERED: SODIUM CHLOR 0.9% 1000 ML INJ 1,000 ML IV PRN (15:27)
[2017-07-29] MEDS ORDERED: SODIUM CHLOR 0.9% 1000 ML INJ 1,000 ML OTHER PRN ×2 (15:27)
--- NOTE | 2017-07-29 15:27 | HHI.NPPN ---
Subjective History of Present Illness Patient is a 71-year-old female who presented to ED s/p fall. Has a history of hypertension, chronic kidney disease, ESRD, who states that that she has stopped her dialysis about 6 weeks ago because she did not want to continue dialysis. Creatinine is 4.63 with a GFR 11ml/min. AVF in left arm. Additional Remarks Denies any SOB, no edema noted. Patient has decided to continue with dialysis. (Marybel Keith) General Problems: Anemia, Hypertension Renal Failure: End Stage Renal Disease (Cathi Valencia MD) Review of Systems Respiratory Respiratory Remarks No SOB (Marybel Keith) Cardiovascular Cardiac Remarks No CP (Marybel Keith) Genitourinary Remarks Denies any dysuria (Marybel Keith) Objective Data Data 07/29/17 07/30/17 19:00 07:00 # Voids 1 Vital Signs Date Time Temp Pulse Resp B/P (MAP) Pulse Ox O2 Delivery O2 Flow Rate FiO2 07/29/17 12:00 80 07/29/17 11:40 97.7 87 20 158/88 (111) 100 07/29/17 09:49 97 07/29/17 08:00 89 07/29/17 07:32 98.3 83 20 185/111 (135) 100 138/77 (97) 07/29/17 06:00 90 07/29/17 05:03 90 07/29/17 04:36 98.7 86 16 162/94 (116) 98 07/29/17 04:01 77 07/29/17 03:00 76 07/29/17 02:00 78 07/29/17 01:00 98 21 07/29/17 01:00 80 07/29/17 00:08 87 07/28/17 23:35 98.9 88 16 181/109 (133) 98 07/28/17 23:00 100 07/28/17 22:00 82 07/28/17 21:00 82 07/28/17 20:05 82 07/28/17 20:01 98.5 82 15 167/98 (121) 98 07/28/17 19:00 76 07/28/17 18:00 86 07/28/17 17:00 86 07/28/17 16:37 81 07/28/17 16:00 76 07/28/17 15:25 97.5 82 18 180/85 (116) 100 (Marybel Keith) -: 07/29/17 0745 07/29/17 0745 Imaging Last Impressions Head CT 07/28/17 1023 Signed Impressions: Service Date/Time: Friday, July 28, 2017 11:15 - CONCLUSION: 1. Chronic ischemic small vessel vasculopathy. No acute intracranial abnormality. Justin Herrmann MD Chest X-Ray 07/28/17 1023 Signed Impressions: Service Date/Time: Friday, July 28, 2017 11:25 - CONCLUSION: 1. Cardiomegaly with increase in pulmonary vascularity. No pulmonary edema. Justin Herrmann MD Pelvis X-Ray 07/28/17 0000 Signed Impressions: Service Date/Time: Friday, July 28, 2017 11:27 - CONCLUSION: No acute fracture. Justin Herrmann MD (Marybel Keith) Physical Exam General Appearance: Well Nourished, No Acute Distress, Comfortable (Marybel Keith) Eyes Eye Exam: Pupils Reactive (Marybel Keith) Throat Throat Exam: Oral Mucosa [place] & Moist (Marybel Keith) Neck Neck Exam: Neck Supple (Marybel Keith) Pulmonary Resp Exam: Clear Bilaterally, Breath Sounds Equal, No Distress (Marybel Keith) Cardiology CV Exam: Regular (Marybel Keith) Gastrointestinal/Abdomen GI Exam: Soft, Non-Tender, Bowel Sounds Present (Marybel Keith) Integumentary Skin Exam: Clear, Warm (Marybel Keith) Extremeties Extremities Exam: No Edema (Marybel Keith) Neurologic Neuro Exam: Alert, Awake (Marybel Keith) Psychiatric Psych Exam: Appropriate Responses (Marybel Keith) Assessment/Plan Discussed Condition With: Patient, Spouse Assessment Summary: End Stage Renal Disease Problem List: (1) End stage renal disease on dialysis ICD Codes: N18.6 - End stage renal disease; Z99.2 - Dependence on renal dialysis Status: Chronic Plan: Patient has a very low GFR at 11ml/min She does not wish to continue dialysis but after discussing with family she would like to dialysis again. Potassium WNL Vitamin D level low PTH is elevated Plan Dialysis orders placed Vitamin D replacement ordered (2) Hypertension ICD Codes: I10 - Hypertension Status: Chronic Plan: Improved Continue Norvasc and metoprolol started today. Hydralazine PRN continue to monitor (Marybel Keith) Problem List: (1) End stage renal disease on dialysis ICD Codes: N18.6 - End stage renal disease; Z99.2 - Dependence on renal dialysis Status: Chronic Plan: Patient has a very low GFR at 11ml/min She does not wish to continue dialysis but after discussing with family she would like to dialysis again. Potassium WNL Vitamin D level low PTH is elevated Plan Dialysis orders placed Vitamin D replacement ordered. Patient seen and examined, agree with above. Discuss in detail with the patient and . She agreed to start HD. One dose of NaHco3 and started HD from tomorrow AM. HD called and informed. (2) Hypertension ICD Codes: I10 - Hypertension Status: Chronic Plan: Improved Continue Norvasc and metoprolol started today. Hydralazine PRN continue to monitor (Cathi Valencia MD) Problem Qualifiers (1) Hypertension: Qualified Codes: I10 - Essential (primary) hypertension Marybel Keith Jul 29, 2017 15:27 Cathi Valencia MD Jul 29, 2017 15:37
[2017-07-29] MEDS ORDERED: HEPARIN SODIUM - IV 10,000 UNITS/10 ML VIAL IV FLUSH PRN (15:30)
[2017-07-29] MEDS ORDERED: ALBUMIN 25% INJ 100 ML IV PRN (15:30)
[2017-07-29] MEDS ORDERED: NITROGLYCERIN 0.4 MG SL 25 TABS/BTL SL PRN (15:30)
[2017-07-29] MEDS ORDERED: MANNITOL 12.5 GM/50 ML VIAL IV PRN (15:30)
[2017-07-29] MEDS ORDERED: GELATIN 12 MM/7 MM FOAM TOP PRN (15:30)
[2017-07-29] MEDS ORDERED: ONDANSETRON HCL 4 MG/2 ML VIAL IV PUSH PRN (15:30)
[2017-07-29] MEDS ORDERED: GENTAMICIN SULFATE 20 MG/2 ML VIAL OTHER PRN (15:30)
[2017-07-29] MEDS ORDERED: SODIUM CHLORIDE 0.9% FLUSH 10 ML FLUSH IV FLUSH PRN (15:30)
[2017-07-29] MEDS ORDERED: HEPARIN SODIUM - IV 10,000 UNITS/10 ML VIAL PRN (15:30)
[2017-07-29] MEDS ORDERED: diphenhydrAMINE HCL 25 MG CAP PO PRN (15:30)
[2017-07-29] MEDS ORDERED: cloNIDine HCL 0.1 MG TAB PO PRN (15:30)
[2017-07-29] MEDS ORDERED: ACETAMINOPHEN 325 MG TAB PO PRN (15:30)
--- NOTE | 2017-07-29 15:39 | PD.CONS ---
Consult Service Palliative Care Consult Requested By Hira . Primary Care Physician Thong Leon MD . Reason for Consultation a. To assist with evaluation and management of symptoms including: syncope, dyspnea b. To assist medical decision maker(s) with: better understanding of current medical conditions; weighing benefits/burdens of medical treatment options; making medical treatment decisions. . HPI History of Present Illness This 71-year-old female, with a past history of CHF, end-stage renal disease, pulmonary hypertension, and mitral regurgitation, decided on her own to discontinue her dialysis about 6 weeks ago. At the same time, she decided to stop taking her hypertension medicines. She has done this in the past, and it resulted in hospitalizations, including one in 2015 with respiratory failure requiring intubation. In 2017, the patient had significant edema and pulmonary edema and consented [on dialysis but then discontinued again about 6 weeks ago. She says that she has actually done fairly well since then, that she produces urine for or 5 times per day, and that she has not had dyspnea the past couple weeks. However, the patient had a syncopal episode with no memory of the event , fell to the ground and bumped her head, and then was brought to the hospital on 07/28/17. In the emergency department, findings included: * Alert, oriented * Temp 98.0, pulse 76, respirations 18, blood pressure 194/94, oxygen saturation 97% on 2 L * White count 4.7, hemoglobin 10.4 * Sodium 141, creatinine 4.99, GFR 10, albumin 3.6 * Potassium 4.7 * Chest x-ray: Cardiomegaly * CT head: Chronic ischemic small vessel vasculopathy The patient was admitted. By 07/29/17, creatinine was 4.63, GFR 11. The patient does note that she was "worse off" a year or so ago and was actually engaging hospice services for a couple months until she started feeling better at home. Palliative Care was consulted to assist with symptom management, and to enter into discussions with the patient and family regarding her illnesses, the prognosis, the risks of discontinuing recommended treatments, and the benefits and burdens of the various treatment options. . Function/Cognitive Trajectory The patient reports that she has been functioning independently both physically and intellectually at home. "I do my own laundry and make my own food." . Review of Systems Constitutional: COMPLAINS OF: Fatigue Endocrine: DENIES: Polyuria Eyes: DENIES: Eye inflammation Ears, nose, mouth, throat: DENIES: Epistaxis Respiratory: COMPLAINS OF: Hemoptysis (last year), Shortness of breath (2 weeks ago, but not since then) Cardiovascular: COMPLAINS OF: Syncope (undetermined etiology), DENIES: Lower Extremity Edema Gastrointestinal: DENIES: Bloody stools, Diarrhea, Vomiting, Vomiting blood Genitourinary: DENIES: Hematuria Musculoskeletal: DENIES: Joint Swelling, Neck pain Integumentary: DENIES: Rash Hematologic/Lymphatics: DENIES: Bruising Immunologic/Allergic: DENIES: Eczema Neurologic: DENIES: Localized weakness, Seizures Psychiatric: DENIES: Confusion, Hallucinations, Agitation Past Family Social History Coded Allergies: No Known Allergies (Verified , 04/09/16) Past Medical History * End-stage renal disease, on dialysis until 6 weeks ago * Hypertension, not well controlled on admission * History of CHF * Pulmonary Hypertension and severe mitral regurg on echo * Anemia * GERD * Hyperlipidemia * Glaucoma . Past Surgical History * 4 * Hysterectomy * Left arm AV fistula . Reported Medications Reported Meds & Active Scripts Active She reports she had stopped her meds . Current Medications Medications (Trade) Dose Ordered Sig/So Route Start Time Stop Time Status Last Admin (NS Flush) 2 ml UNSCH PRN IV FLUSH 07/28/17 14:45 (NS Flush) 2 ml BID IV FLUSH 07/28/17 21:00 07/29/17 11:35 (Tylenol) 650 mg Q4H PRN PO 07/28/17 14:45 (Zofran Inj) 4 mg Q6H PRN IVP 07/28/17 14:45 (Heparin Inj) 5,000 units Q8H SQ 07/28/17 15:00 07/29/17 07:21 (Narcan Inj) 0.4 mg UNSCH PRN IV PUSH 07/28/17 14:45 (Milk Of Magnesia Liq) 30 ml Q12H PRN PO 07/28/17 14:45 (Senokot) 17.2 mg Q12H PRN PO 07/28/17 14:45 (Dulcolax Supp) 10 mg DAILY PRN RECTAL 07/28/17 14:45 (Lactulose Liq) 30 ml DAILY PRN PO 07/28/17 14:45 (Apresoline Inj) 10 mg Q6H PRN IV PUSH 07/28/17 15:15 07/29/17 08:08 (Norvasc) 10 mg DAILY PO 07/28/17 15:15 07/29/17 08:08 (Protonix) 40 mg DAILY PO 07/28/17 15:15 07/29/17 08:08 (Lopressor) 12.5 mg Q12HR PO 07/29/17 10:00 07/29/17 11:26 (Pill Splitter) 1 ea UNSCH PRN OTHER 07/29/17 09:30 Family History The patient's father in his 90s of "old age," and her mother at age 47 of a stroke. There is no family history of renal failure . Substance Use Tobacco: None Alcohol: None Prescription med abuse: None Illicits: None . Psychosocial History The patient was born in [place], one of 13 children, but moved to this area as a child and has lived here her entire life. She's been 3 times, currently to her 92-year-old for about 20 years. She has 2 children living in other parts of [place]. 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 Spiritual/Cultural Factors Spirituality has been very important for the patient, and she is an active participant of a local [employer] adventist. Her track surfacing machine operator has been here to see her and support her. . Living Will: Never completed Health Care Surrogate: Never completed Durable Power of Jewelry Estimator: Never completed Today's verbally stated goals: The patient tells me that she definitely would not want cardiac or respiratory resuscitation "when that time comes" and she would not want to be on life support machines. She says she would be willing to return to dialysis treatments if fluid retention became too symptomatic or if pulmonary edema recurred. . Family/friends goals: The patient's supports her goals and wishes. . Ethical and Legal Issues There are no ethical issues that would impact her care or decision-making at this time. The patient has capacity for decision-making at this time. Her would be the proxy decision-maker when she loses that capacity. . Physical Exam Vital Signs Date Time Temp Pulse Resp B/P (MAP) Pulse Ox O2 Delivery O2 Flow Rate FiO2 07/29/17 12:00 80 07/29/17 11:40 97.7 87 20 158/88 (111) 100 07/29/17 09:49 97 07/29/17 08:00 89 07/29/17 07:32 98.3 83 20 185/111 (135) 100 138/77 (97) 07/29/17 06:00 90 07/29/17 05:03 90 07/29/17 04:36 98.7 86 16 162/94 (116) 98 07/29/17 04:01 77 07/29/17 03:00 76 07/29/17 02:00 78 07/29/17 01:00 98 21 07/29/17 01:00 80 07/29/17 00:08 87 07/28/17 23:35 98.9 88 16 181/109 (133) 98 07/28/17 23:00 100 07/28/17 22:00 82 07/28/17 21:00 82 07/28/17 20:05 82 07/28/17 20:01 98.5 82 15 167/98 (121) 98 07/28/17 19:00 76 07/28/17 18:00 86 07/28/17 17:00 86 07/28/17 16:37 81 07/28/17 16:00 76 07/28/17 15:25 97.5 82 18 180/85 (116) 100 07/29/17 07/30/17 19:00 07:00 # Voids 1 Exam CONSTITUTIONAL/GENERAL: This is an adequately nourished patient, in no apparent distress. TUBES/LINES/DRAINS: Peripheral IV SKIN: No jaundice, rashes, or lesions. No wounds seen anteriorly. Skin temperature appropriate. Not diaphoretic. HEAD: Atraumatic. Normocephalic. EYES: Pupils equal and round and reactive. Extraocular motions intact. No scleral icterus. No injection or drainage. Fundi not examined. ENT: Hearing grossly normal. Nose without bleeding or purulent drainage. Throat without visible erythema, exudates, masses, or lesions. NECK: Trachea midline. Supple, nontender. No palpable thyroid enlargement or nodularity. CARDIOVASCULAR: Regular rate and rhythm with grade 2-3 systolic murmur. No JVD. Peripheral pulses symmetric. RESPIRATORY/CHEST: Symmetric, unlabored respirations. A couple scattered rhonchi.. GASTROINTESTINAL: Abdomen soft, non-tender, nondistended. No hepato-splenomegaly , or palpable masses. No guarding. Bowel sounds present. GENITOURINARY: Without palpable bladder distension. MUSCULOSKELETAL: Extremities without clubbing, cyanosis, or edema. No joint tenderness or effusion noted. No calf tenderness. No mottling or clubbing. LYMPHATICS: No palpable cervical or supraclavicular adenopathy. NEUROLOGICAL: Awake and alert. Motor and sensory grossly within normal limits. Follows commands. Cognitively sharp. Moves all extremities. PSYCHIATRIC: No obvious anxiety/depression. no apparent hallucinations or other psychotic thought process. . Diagnostic Tests Laboratory Laboratory Tests Test 07/28/17 10:36 07/29/17 00:53 07/29/17 07:45 07/29/17 11:10 White Blood Count 4.7 TH/MM3 (4.0-11.0) 4.4 TH/MM3 (4.0-11.0) Red Blood Count 3.35 MIL/MM3 (4.00-5.30) 3.64 MIL/MM3 (4.00-5.30) Hemoglobin 10.4 GM/DL (11.6-15.3) 11.2 GM/DL (11.6-15.3) Hematocrit 31.5 % (35.0-46.0) 33.7 % (35.0-46.0) Mean Corpuscular Volume 94.1 FL (80.0-100.0) 92.6 FL (80.0-100.0) Mean Corpuscular Hemoglobin 31.0 PG (27.0-34.0) 30.7 PG (27.0-34.0) Mean Corpuscular Hemoglobin Concent 33.0 % (32.0-36.0) 33.2 % (32.0-36.0) Red Cell Distribution Width 16.3 % (11.6-17.2) 16.4 % (11.6-17.2) Platelet Count 143 TH/MM3 (150-450) 150 TH/MM3 (150-450) Mean Platelet Volume 11.8 FL (7.0-11.0) 11.7 FL (7.0-11.0) Neutrophils (%) (Auto) 73.0 % (16.0-70.0) 77.7 % (16.0-70.0) Lymphocytes (%) (Auto) 12.4 % (9.0-44.0) 9.3 % (9.0-44.0) Monocytes (%) (Auto) 9.1 % (0.0-8.0) 7.6 % (0.0-8.0) Eosinophils (%) (Auto) 2.7 % (0.0-4.0) 2.9 % (0.0-4.0) Basophils (%) (Auto) 2.8 % (0.0-2.0) 2.5 % (0.0-2.0) Neutrophils # (Auto) 3.4 TH/MM3 (1.8-7.7) 3.4 TH/MM3 (1.8-7.7) Lymphocytes # (Auto) 0.6 TH/MM3 (1.0-4.8) 0.4 TH/MM3 (1.0-4.8) Monocytes # (Auto) 0.4 TH/MM3 (0-0.9) 0.3 TH/MM3 (0-0.9) Eosinophils # (Auto) 0.1 TH/MM3 (0-0.4) 0.1 TH/MM3 (0-0.4) Basophils # (Auto) 0.1 TH/MM3 (0-0.2) 0.1 TH/MM3 (0-0.2) CBC Comment AUTO DIFF AUTO DIFF Differential Comment AUTO DIFF CONFIRMED AUTO DIFF CONFIRMED Platelet Estimate NORMAL (NORMAL) NORMAL (NORMAL) Platelet Morphology Comment ENLARGED (NORMAL) ENLARGED (NORMAL) Ovalocytes 1+ (NORMAL) 1+ (NORMAL) Acanthocytes OCC (NORMAL) Keratocytes OCC (NORMAL) Prothrombin Time 12.3 SEC (9.8-11.6) 12.4 SEC (9.8-11.6) Prothromb Time International Ratio 1.2 RATIO 1.2 RATIO Activated Partial Thromboplast Time 25.3 SEC (24.3-30.1) Blood Urea Nitrogen 78 MG/DL (7-18) 75 MG/DL (7-18) Creatinine 4.99 MG/DL (0.50-1.00) 4.63 MG/DL (0.50-1.00) Random Glucose 82 MG/DL (74-106) 88 MG/DL (74-106) Total Protein 6.9 GM/DL (6.4-8.2) 6.4 GM/DL (6.4-8.2) Albumin 3.6 GM/DL (3.4-5.0) 3.3 GM/DL (3.4-5.0) Calcium Level 9.1 MG/DL (8.5-10.1) 8.4 MG/DL (8.5-10.1) Magnesium Level 2.1 MG/DL (1.5-2.5) 2.1 MG/DL (1.5-2.5) Alkaline Phosphatase 122 U/L (45-117) 117 U/L (45-117) Aspartate Amino Transf (AST/SGOT) 38 U/L (15-37) 30 U/L (15-37) Alanine Aminotransferase (ALT/SGPT) 53 U/L (10-53) 45 U/L (10-53) Total Bilirubin 0.4 MG/DL (0.2-1.0) 0.4 MG/DL (0.2-1.0) Sodium Level 141 MEQ/L (136-145) 142 MEQ/L (136-145) Potassium Level 4.7 MEQ/L (3.5-5.1) 4.3 MEQ/L (3.5-5.1) Chloride Level 113 MEQ/L (98-107) 112 MEQ/L (98-107) Carbon Dioxide Level 17.0 MEQ/L (21.0-32.0) 16.5 MEQ/L (21.0-32.0) Anion Gap 11 MEQ/L (5-15) 14 MEQ/L (5-15) Estimat Glomerular Filtration Rate 10 ML/MIN (>89) 11 ML/MIN (>89) Total Creatine Kinase 242 U/L (26-192) Creatine Kinase MB 6.6 NG/ML (0.5-3.6) Creatine Kinase MB % 2.7 % (0.0-4.0) Troponin I 0.05 NG/ML (0.02-0.05) 0.06 NG/ML (0.02-0.05) B-Type Natriuretic Peptide GREATER THAN 5000 PG/ML 3250 PG/ML (0-100) Ammonia LESS THAN 10 MCMOL/L 25-Hydroxy Vitamin D Total 11.0 ng/ML (30-100) Parathyroid Hormone (Intact) 677.4 PG/ML (12.4-76.8) Urine Color YELLOW (YELLW/STRAW) Urine Turbidity CLEAR (CLEAR) Urine pH 5.5 (5.0-8.5) Urine Specific [place] 1.011 (1.002-1.035) Urine Protein 100 mg/dL (NEG-TRACE) Urine Glucose (UA) NEG mg/dL (NEG) Urine Ketones NEG mg/dL (NEG) Urine Occult Blood NEG (NEG) Urine Nitrite NEG (NEG) Urine Bilirubin NEG (NEG) Urine Urobilinogen LESS THAN 2.0 MG/DL (LESS Urine Leukocyte Esterase NEG (NEG) Urine RBC LESS THAN 1 /hpf (0-3) Urine WBC 1 /hpf (0-5) Urine Squamous Epithelial Cells <1 /hpf (0-5) Urine Mucus FEW /lpf (OCC) Microscopic Urinalysis Comment CULT NOT INDICATED Result Diagram: 07/29/17 0745 07/29/17 0745 Imaging Last Impressions Head CT 07/28/17 1023 Signed Impressions: Service Date/Time: Friday, July 28, 2017 11:15 - CONCLUSION: 1. Chronic ischemic small vessel vasculopathy. No acute intracranial abnormality. Justin Herrmann MD Chest X-Ray 07/28/17 1023 Signed Impressions: Service Date/Time: Friday, July 28, 2017 11:25 - CONCLUSION: 1. Cardiomegaly with increase in pulmonary vascularity. No pulmonary edema. Justin Herrmann MD Pelvis X-Ray 07/28/17 0000 Signed Impressions: Service Date/Time: Friday, July 28, 2017 11:27 - CONCLUSION: No acute fracture. Justin Herrmann MD Patient/Family Conference Present at Family Conference: The patient's Raphael was present with the patient and me in the room. . Family Conference Time (mins): 49 Family Conference Location: Bedside Issues Discussed: * Palliative care role, purpose, approach * Hospice care role, purpose, approach * Additional medical, psychosocial, and spiritual history * Patients general health, functional status, and cognitive changes in the months leading up to the current hospitalization * Patient/family understanding of the current medical problems * Patient/family understanding of prognosis * Patients goals of care as best understood from advance directives and/or conversations and/or values * Current medical treatment options and benefits/burdens of those options * Likely scenarios comparing ongoing aggressive care with a transition to comfort measures only * Questions answered to the best of my ability * Palliative care contact information provided . 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 Spiritual: [employer] background, supported by her track surfacing machine operator. Legal: The patient has capacity for decision-making at this time. Her would be the proxy decision-maker when she loses that capacity. Ethical issues impacting care: None . Important Contacts : Raphael Chávez [phone], . Prognosis Overall, the patient's prognosis is guarded, as her renal failure, CHF, and uncontrolled hypertension in the setting of patient noncompliance would predict a poor prognosis. . Code Status: No Code Plan * DO NOT RESUSCITATE * GOALS: The patient tells me that she definitely would not want cardiac or respiratory resuscitation "when that time comes" and she would not want to be on life support machines. She says she would be willing to return to dialysis treatments if fluid retention became too symptomatic or if pulmonary edema recurred. * DNR order entered per patient's request. * DECISION-MAKING: The patient has capacity for decision-making at this time. Her would be the proxy decision-maker when she loses that capacity. * SYMPTOMS: At this time, the patient has no pain, anxiety, or any remaining dyspnea. No additional medication recommendations are made at this time. * Palliative Care will continue to follow the patient during this hospitalization. . Time Spent Total Floor Time (mins): 77 Face to Face Time (mins): 54 >50% Counseling/Coord of Care: Yes Thank you for the opportunity to participate in the care of Ms. Chávez. Attestation To help prompt me to consider important information that might be impacting today's encounter and assessment, information from prior notes written by myself or my colleagues may have been "brought forward" into today's note. My signature on this note, however, is an attestation that I personally performed the exam, history, and/or decision-making noted today, and, unless otherwise indicated, the interactions with patient, family, and staff as well as the review of records all occurred today. I also attest that the listed assessment and stated plan reflect my best clinical judgment today based on the combination of historical information, prior notes, and today's exam/ interactions. When time spent is documented, it refers only to time spent today by the signer, or if indicated, combined time spent today by collaborating physician/nurse practitioner. eGm Caro MD Jul 29, 2017 15:39
[2017-07-29] MEDS ORDERED: SODIUM BICARBONATE 8.4% INJ 50 MEQ/50 ML SYR IV PUSH ONE (15:45)
[2017-07-29] MEDS ORDERED: ERGOCALCIFEROL (VIT D2) 50,000 UNIT CAP PO SCH (16:00)
[2017-07-29 16:31] LABS: HEMOGLOBIN A1C 4.9 % (4.3-6.0)
--- NOTE | 2017-07-29 16:58 | ECHRPT ---
Indication: CARDIOMYOPATHY CONCLUSIONS The left ventricular systolic function is low normal with an estimated ejection fraction in the rang e of 50- 55%. Normal left ventricular size. Moderate concentric left ventricular hypertrophy. The left atrial size is upper limits of normal. Mild thickening of the mitral valve leaflets. [id number] mitral valve regurgitation. Diffuse calcification of the aortic valve. There is moderate to severe tricuspid valve regurgitation. The estimated pulmonary arterial pressure is 37.7 mmHg. Trivial pulmonary valve regurgitation. There is less than 50% respiratory change in dimension of the inferior vena cava (abnormal). There is a small pericardial effusion present. A moderate left sided pleural effusion is noted. BP: 185 / 111 HR: 83 Rhythm: Sinus MEASUREMENTS (Male / Female) Normal Values Technical Quality:Good 2D ECHO LV Diastolic Diameter PLAX 4.0 cm 4.2 - 5.9 / 3.9 - 5.3 cm LV Systolic Diameter PLAX 3.1 cm IVS Diastolic Thickness 1.5 cm 0.6 - 1.0 / 0.6 - 0.9 cm LVPW Diastolic Thickness 1.5 cm 0.6 - 1.0 / 0.6 - 0.9 cm LV Relative Wall Thickness 0.7 RV Internal Dim ED PLAX 3.0 cm LVOT Diameter 1.9 cm LA Systolic Diameter LX 4.0 cm 3.0 - 4.0 / 2.7 - 3.8 cm LV Ejection Fraction MOD 4C 54.9 % LV Cardiac Index MOD 4C 3566.1 cm/minm LV Ejection Fraction 4C AL 56.5 % LV Cardiac Index 4C AL 3786.4 cm/minm M-MODE LV Diastolic Diameter MM 4.1 cm 4.2 - 5.9 / 3.9 - 5.3 cm LV Systolic Diameter MM 3.1 cm LV Ejection Fraction MM Teich 49.2 % LV Cardiac Index MM Teich 2065.7 cm/minm IVS Diastolic Thickness MM 1.6 cm 0.6 - 1.0 / 0.6 - 0.9 cm LVPW Diastolic Thickness MM 1.6 cm 0.6 - 1.0 / 0.6 - 0.9 cm LV Relative Wall Thickness MM 0.8 0.24 - 0.42 / 0.22 - 0.42 LV Mass Index MM 182.8 g/m 49 - 115 / 43 - 95 g/m Aortic Root Diameter MM 2.3 cm LA Systolic Diameter MM 4.0 cm LA Ao Ratio MM 1.7 AV Cusp Separation MM 1.6 cm DOPPLER AV Peak Velocity 183.0 cm/s AV Peak Gradient 13.4 mmHg LVOT Peak Velocity 116.0 cm/s LVOT Peak Gradient 5.4 mmHg AV Area Cont Eq pk 1.8 cm MV Area PHT 3.1 cm Mitral E Point Velocity 124.5 cm/s Mitral A Point Velocity 89.3 cm/s Mitral E to A Ratio 1.4 TR Peak Velocity 263.0 cm/s TR Peak Gradient 27.7 mmHg Right Atrial Pressure 10.0 mmHg Pulmonary Artery Systolic Pressu 37.7 mmHg Right Ventricular Systolic Press 37.7 mmHg PV Peak Velocity 99.1 cm/s PV Peak Gradient 3.9 mmHg FINDINGS LEFT VENTRICLE The left ventricular systolic function is low normal with an estimated ejection fraction in the rang e of 50- 55%. Normal left ventricular size. Moderate concentric left ventricular hypertrophy. RIGHT VENTRICLE Normal right ventricular size and systolic function. LEFT ATRIUM The left atrial size is upper limits of normal. RIGHT ATRIUM The right atrial size is normal. ATRIAL SEPTUM Normal atrial septal thickness without atrial level shunting by limited color doppler interrogation. AORTA The aortic root and proximal ascending aorta are normal in size on limited imaging. MITRAL VALVE Mild thickening of the mitral valve leaflets. [id number] mitral valve regurgitation. AORTIC VALVE Trileaflet aortic valve. Diffuse calcification of the aortic valve. TRICUSPID VALVE Structurally normal tricuspid valve. There is moderate to severe tricuspid valve regurgitation. The estimated pulmonary arterial pressure is 37.7 mmHg. PULMONARY VALVE Trivial pulmonary valve regurgitation. VESSELS There is less than 50% respiratory change in dimension of the inferior vena cava (abnormal). PERICARDIUM There is a small pericardial effusion present. A moderate left sided pleural effusion is noted. Edouard Plasencia MD, FACC (Electronically Signed) Final Date:29 July 2017 16:58
--- NOTE | 2017-07-29 22:06 | EKG ---
Date Performed: 07/28/2017 Time Performed: 23:27:06 PTAGE: 71 years EKG: Sinus rhythm Possible left atrial abnormality Leftward axis Inferior infarct - age undetermined QRS changes V3/V4 may be due to LVH but cannot rule out anterior infarct Abnormal ECG PREVIOUS TRACING : 07/28/2017 10.35 DOCTOR: Candace Tran Interpretating Date/Time 07/29/2017 22:00:52
--- NOTE | 2017-07-29 23:10 | EKG ---
Date Performed: 07/28/2017 Time Performed: 10:35:27 PTAGE: 71 years EKG: Sinus rhythm LEFT ATRIAL ENLARGEMENT INFERIOR MYOCARDIAL INFARCTION ABNORMAL ECG PREVIOUS TRACING : 04/10/2016 22.22 DOCTOR: Candace Tran Interpretating Date/Time 07/29/2017 23:06:35
[2017-07-30] VITALS (26 sets, daily range): BP systolic 140–174; BP diastolic 81–102; PULSE 66–87; RESP 16–20; TEMP 97.6–98.8; O2SAT 96–99
[2017-07-30 07:04] LABS: BICARBONATE 19.1 MEQ/L (21.0-32.0); CALCIUM 8.6 MG/DL (8.5-10.1); CREATININE 4.7 MG/DL (0.50-1.00)
[2017-07-30 07:05] LABS: PHOSPHORUS 3.3 MG/DL (2.5-4.9)
[2017-07-30] MEDS: HEPARIN SODIUM - SQ 10,000 UNITS/ML VIAL SQ SCH ×3 (07:06→23:14)
--- NOTE | 2017-07-30 09:09 | HHI.NPPN ---
Subjective General Problems: Anemia, Hypertension Renal Failure: End Stage Renal Disease History of Present Illness Patient is a 71-year-old female who presented to ED s/p fall. Has a history of hypertension, chronic kidney disease, ESRD, who states that that she has stopped her dialysis about 6 weeks ago because she did not want to continue dialysis. Creatinine is 4.63 with a GFR 11ml/min. AVF in left arm. Additional Remarks Denies any SOB, no edema noted. Seen during dialysis (Marybel Keith) Review of Systems Respiratory Respiratory Remarks No SOB (Marybel Keith) Cardiovascular Cardiac Remarks No CP (Marybel Keith) Genitourinary Remarks Denies any dysuria (Marybel Keith) Objective Data Data Vital Signs Date Time Temp Pulse Resp B/P (MAP) Pulse Ox O2 Delivery O2 Flow Rate FiO2 07/30/17 08:25 98.3 77 20 160/97 (118) 97 07/30/17 06:00 72 07/30/17 05:00 72 07/30/17 04:10 98.2 75 16 167/102 (123) 99 07/30/17 04:01 72 07/30/17 03:00 66 07/30/17 02:00 74 07/30/17 01:00 66 07/30/17 00:03 70 07/29/17 23:03 98.2 76 18 159/101 (120) 97 07/29/17 23:00 74 07/29/17 22:00 72 07/29/17 21:00 70 07/29/17 20:59 95 07/29/17 20:05 98.4 71 16 140/81 (100) 98 07/29/17 20:04 72 07/29/17 19:00 72 07/29/17 16:22 74 07/29/17 15:49 98.2 70 20 142/82 (102) 99 07/29/17 12:00 80 07/29/17 11:40 97.7 87 20 158/88 (111) 100 07/29/17 09:49 97 (Marybel Keith) -: 07/29/17 0745 07/30/17 0550 Imaging Last Impressions Head CT 07/28/17 1023 Signed Impressions: Service Date/Time: Friday, July 28, 2017 11:15 - CONCLUSION: 1. Chronic ischemic small vessel vasculopathy. No acute intracranial abnormality. Justin Herrmann MD Chest X-Ray 07/28/17 1023 Signed Impressions: Service Date/Time: Friday, July 28, 2017 11:25 - CONCLUSION: 1. Cardiomegaly with increase in pulmonary vascularity. No pulmonary edema. Justin Herrmann MD Pelvis X-Ray 07/28/17 0000 Signed Impressions: Service Date/Time: Friday, July 28, 2017 11:27 - CONCLUSION: No acute fracture. Justin Herrmann MD (GellerMarybel arellano M. PROCEDURES ANALYST) Physical Exam General Appearance: Well Nourished, No Acute Distress, Comfortable (GellerVerónica arellanone M. PROCEDURES ANALYST) Eyes Eye Exam: Pupils Reactive (GellerVerónica arellanone M. PROCEDURES ANALYST) Throat Throat Exam: Oral Mucosa [place] & Moist (BernadinelerVerónica arellanone M. PROCEDURES ANALYST) Neck Neck Exam: Neck Supple (GellermannVerónicaMarybel M. PROCEDURES ANALYST) Pulmonary Resp Exam: Clear Bilaterally, Breath Sounds Equal, No Distress (GellerVerónica arellanone M. PROCEDURES ANALYST) Cardiology CV Exam: Regular (BernadineleraMrybel arellano M. PROCEDURES ANALYST) Gastrointestinal/Abdomen GI Exam: Soft, Non-Tender, Bowel Sounds Present (GellerVerónica arellanone M. PROCEDURES ANALYST) Integumentary Skin Exam: Clear, Warm (GellerVerónica arellanone M. PROCEDURES ANALYST) Extremeties Extremities Exam: No Edema (BernadinelerVerónica arellanone M. PROCEDURES ANALYST) Neurologic Neuro Exam: Alert, Awake (GellermannVerónicaMarybel M. PROCEDURES ANALYST) Psychiatric Psych Exam: Appropriate Responses (Marybel Keith M. PROCEDURES ANALYST) Assessment/Plan Discussed Condition With: Patient, Spouse Assessment Summary: End Stage Renal Disease Problem List: (1) End stage renal disease on dialysis ICD Codes: N18.6 - End stage renal disease; Z99.2 - Dependence on renal dialysis Status: Chronic Plan: Patient has a very low GFR at 11ml/min Potassium WNL Vitamin D level low on replacement PTH is elevated Seen during dialysis tolerating well Outpatient dialysis to be arranged (2) Hypertension ICD Codes: I10 - Hypertension Status: Chronic Plan: Improved Continue Norvasc and metoprolol started today. Hydralazine PRN continue to monitor (Marybel Keith) Problem List: (1) End stage renal disease on dialysis ICD Codes: N18.6 - End stage renal disease; Z99.2 - Dependence on renal dialysis Status: Chronic Plan: Patient has a very low GFR at 11ml/min Potassium WNL Vitamin D level low on replacement PTH is elevated Seen during dialysis tolerating well Outpatient dialysis to be arranged. I called [facility], she was discharged, they will let me know today in afternoon about the time and day for out patient HD. (2) Hypertension ICD Codes: I10 - Hypertension Status: Chronic Plan: Improved Continue Norvasc and metoprolol started today. Hydralazine PRN continue to monitor (Cathi Valencia MD) Problem Qualifiers (1) Hypertension: Qualified Codes: I10 - Essential (primary) hypertension Marybel Keith Jul 30, 2017 09:09 Cathi Valencia MD Jul 30, 2017 10:34
[2017-07-30] MEDS: PANTOPRAZOLE SOD 40 MG DELAYED RELEASE TAB PO SCH (12:52)
[2017-07-30] MEDS: METOPROLOL TARTRATE 25 MG TAB PO SCH ×2 (12:52→21:49)
[2017-07-30] MEDS: SODIUM CHLORIDE 0.9% FLUSH 10 ML FLUSH IV FLUSH SCH ×2 (12:54→21:49)
[2017-07-30 12:58] LABS: HEPATITIS A AB IGM NEGATIVE (NEGATIVE); HEPATITIS B CORE AB IGM NEGATIVE (NEGATIVE); HEPATITIS B SURFACE ANTIGEN NEGATIVE (NEGATIVE); HEPATITIS C AB IgG NEGATIVE (NEGATIVE)
--- NOTE | 2017-07-30 14:29 | HHI.FPPN ---
Subjective Remarks No acute events overnight. Patient's vitals remained stable, elevated blood pressures as high as 167 systolic. Patient seen in dialysis this morning on rounds. Patient reports no chest pain, shortness of breath, dizziness, leg pain. (Bernardo Deleon MD R1) Objective Vitals Vital Signs Date Time Temp Pulse Resp B/P (MAP) Pulse Ox O2 Delivery O2 Flow Rate FiO2 07/30/17 12:44 97.7 84 20 174/101 (125) 97 07/30/17 12:05 73 07/30/17 08:25 98.3 77 20 160/97 (118) 97 07/30/17 08:00 69 07/30/17 06:00 72 07/30/17 05:00 72 07/30/17 04:10 98.2 75 16 167/102 (123) 99 07/30/17 04:01 72 07/30/17 03:00 66 07/30/17 02:00 74 07/30/17 01:00 66 07/30/17 00:03 70 07/29/17 23:03 98.2 76 18 159/101 (120) 97 07/29/17 23:00 74 07/29/17 22:00 72 07/29/17 21:00 70 07/29/17 20:59 95 07/29/17 20:05 98.4 71 16 140/81 (100) 98 07/29/17 20:04 72 07/29/17 19:00 72 07/29/17 16:22 74 07/29/17 15:49 98.2 70 20 142/82 (102) 99 I/O 07/29/17 07/29/17 07/29/17 07/30/17 07/30/17 07/30/17 07:00 15:00 23:00 07:00 15:00 23:00 Intake Total 520 ml Output Total 400 ml 2000 ml Balance 120 ml -2000 ml Intake Oral 520 ml Output Urine Total 400 ml Hemodialysis 2000 ml # Voids 1 1 # Bowel Movements 1 (Bernardo Deleon MD R1) Result Diagram: 07/29/17 0745 07/30/17 0550 Objective Remarks GENERAL: Well-nourished, well-developed female patient lying in dialysis bed comfortably, in no acute distress. SKIN: Warm and dry. No rashes or lesions present. EYES: No scleral icterus. No conjunctival injection or drainage. Pupils equal, round, reactive to light and accommodation. Extraocular movements intact. THROAT: Moist mucous membranes. NECK: Supple, trachea midline. CARDIOVASCULAR: Regular rate and rhythm without murmurs, gallops, or rubs. Strong radial and pedal pulses. CHEST: Symmetric chest expansion with respiration. RESPIRATORY: Breath sounds clear to auscultation bilaterally. No accessory muscle use. No wheezes, rhonchi or rales. GASTROINTESTINAL: Abdomen soft, non-tender, nondistended. MUSCULOSKELETAL: No cyanosis or edema. No nail changes. NEURO: Cranial nerves II through XII grossly intact. Good muscle tone. PSYCH: Normal mood and affect. Good eye contact. Good insight and judgment. Normal speech. (Bernardo Deleon MD R1) A/P Assessment and Plan Patient is a 71-year-old female with a past medical history of hypertension, end -stage renal disease on dialysis, and CHF who presented after a fall. She has gone without dialysis for a prolonged period and has a history of noncompliance with medications and dialysis treatments. She was admitted for resumption of dialysis. Dialysis initiated on 07/30, outpatient dialysis chair to be arranged. Discharge Planning Discharge pending outpatient dialysis arranged, possibly today on 07/30 (Bernardo Deleon MD R1) Attending Attestation patient seen and examined, discussed with resident team. I agree with assessment and management as documented and discussed with me. Pt seen while receiving dialysis. She has no complaints. Blood pressure a bit better. Await arrangement of outpatient dialysis prior to discharge. Appreciate nephrology, case management. (Che Carpenter MD) Problem List: (1) End stage renal disease on dialysis ICD Codes: N18.6 - End stage renal disease; Z99.2 - Dependence on renal dialysis Status: Chronic Plan: Creatinine 4.99 on admission, trending down to 4.70 today Nephrology, Dr. Valencia, consulted. Appreciate recommendations. Patient restarted dialysis on 07/30 Nephrology working to arrange outpatient dialysis Continue to monitor renal function Caution with IV fluid hydration Monitor for signs of uremia (2) Hypertension ICD Codes: I10 - Hypertension Status: Chronic Plan: Blood Pressure 200/94 on admission Now ranging 140-174 systolic / 81-102 diastolic Continue to monitor BP Continue amlodipine 10 mg daily Continue Metoprolol 12.5mg PO Q12H Hydralazine 10mg IV Q6H PRN SBP >170, DBP >100 (3) CHF (congestive heart failure) ICD Codes: I50.9 - Heart failure, unspecified Status: Chronic Plan: CHF and pulmonary hypertension on echocardiogram in 2015 BNP >5000 on admission, trending down to 3250 on 07/29 Chest x-ray shows cardiomegaly and increase in pulmonary vascularity, no pulmonary edema Echocardiogram on 07/29 showing ejection fraction 50-55%, moderate to severe mitral valve regurg, moderate to severe tricuspid valve regurg Will need outpatient follow-up with cardiology Cautious with IV fluids (4) GERD (gastroesophageal reflux disease) ICD Codes: K21.9 - Gastro-esophageal reflux disease without esophagitis Status: Chronic Plan: Protonix 40 daily (5) FEN/Ppx Status: Acute Plan: Fluids: PO Electrolytes: wnl, continue to monitor and replete accordingly Nutrition: renal diet DVT ppx: Heparin 5000 TID (Bernardo Deleon MD R1) Problem Qualifiers (1) Hypertension: Qualified Codes: I10 - Essential (primary) hypertension (2) CHF (congestive heart failure): Qualified Codes: I50.9 - Heart failure, unspecified (3) GERD (gastroesophageal reflux disease): Qualified Codes: K21.9 - Gastro-esophageal reflux disease without esophagitis Bernardo Deleon MD R1 Jul 30, 2017 14:29 Che Carpenter MD Jul 30, 2017 20:56
[2017-07-31] VITALS (16 sets, daily range): BP systolic 130–154; BP diastolic 79–85; PULSE 71–88; RESP 16–18; TEMP 98–98.6; O2SAT 96–98
[2017-07-31] MEDS: HEPARIN SODIUM - SQ 10,000 UNITS/ML VIAL SQ SCH ×3 (06:57→22:17)
[2017-07-31 08:21] LABS: AUTOMATED NEUTROPHIL # 2.6 TH/MM3 (1.8-7.7); BASOPHIL % 1.2 % (0.0-2.0); EOSINOPHIL # 0.1 TH/MM3 (0-0.4); HEMATOCRIT 30.2 % (35.0-46.0); HEMOGLOBIN 10.2 GM/DL (11.6-15.3); LYMPH % 19.7 % (9.0-44.0); LYMPHOCYTE # 0.8 TH/MM3 (1.0-4.8); MEAN CELL VOLUME 91.1 FL (80.0-100.0); MEAN CORPUSCULAR HEMOGLOBIN 30.7 PG (27.0-34.0); MEAN CORPUSCULAR HGB CONC 33.6 % (32.0-36.0); MEAN PLATELET VOLUME 11.7 FL (7.0-11.0); MONO % 12.2 % (0.0-8.0); MONOCYTE # 0.5 TH/MM3 (0-0.9); NEUT % 63.9 % (16.0-70.0); PLATELET COUNT 140 TH/MM3 (150-450); RED BLOOD COUNT 3.31 MIL/MM3 (4.00-5.30)
[2017-07-31] MEDS: SODIUM CHLORIDE 0.9% FLUSH 10 ML FLUSH IV FLUSH SCH ×2 (09:00→22:17)
[2017-07-31 09:08] LABS: BICARBONATE 27.5 MEQ/L (21.0-32.0); CALCIUM 8.3 MG/DL (8.5-10.1); CREATININE 3.22 MG/DL (0.50-1.00)
[2017-07-31] MEDS: METOPROLOL TARTRATE 25 MG TAB PO SCH ×2 (09:32→22:17)
[2017-07-31] MEDS: PANTOPRAZOLE SOD 40 MG DELAYED RELEASE TAB PO SCH (09:32)
--- NOTE | 2017-07-31 09:52 | HHI.FPPN ---
Subjective Remarks No acute events overnight. Vital signs remained stable and within normal limits. Patient states that she is feeling well this morning, denies chest pain , shortness of breath, nausea vomiting, or shortage swelling. (Bernardo eDleon MD R1) Objective Vitals Vital Signs Date Time Temp Pulse Resp B/P (MAP) Pulse Ox O2 Delivery O2 Flow Rate FiO2 07/31/17 06:02 72 07/31/17 05:01 75 07/31/17 04:57 98.6 81 16 138/85 (102) 96 07/31/17 04:00 73 07/31/17 03:04 71 07/31/17 02:03 71 07/31/17 01:03 75 07/31/17 00:45 76 07/30/17 23:20 98.8 75 16 140/81 (100) 96 07/30/17 23:02 76 07/30/17 22:04 87 07/30/17 21:01 74 07/30/17 20:06 66 07/30/17 19:47 98.5 80 18 143/93 (110) 98 07/30/17 19:05 75 07/30/17 17:00 71 07/30/17 16:29 98 21 07/30/17 16:00 81 07/30/17 15:51 97.6 73 148/90 (109) 98 07/30/17 14:27 143/87 (105) 07/30/17 14:00 72 07/30/17 13:00 85 07/30/17 12:44 97.7 84 20 174/101 (125) 97 07/30/17 12:05 73 I/O 07/30/17 07/30/17 07/30/17 07/31/17 07/31/17 07/31/17 07:00 15:00 23:00 07:00 15:00 23:00 Intake Total 800 ml 200 ml 120 ml Output Total 2000 ml 400 ml 150 ml Balance -2000 ml 400 ml 50 ml 120 ml Intake Oral 800 ml 200 ml 120 ml Output Urine Total 400 ml 150 ml Hemodialysis 2000 ml # Voids 1 2 (Bernardo Deleon MD R1) Result Diagram: 07/31/17 0750 07/31/17 0750 Objective Remarks GENERAL: Well-nourished, well-developed female patient lying bed comfortably, in no acute distress. SKIN: Warm and dry. No rashes or lesions present. EYES: No scleral icterus. No conjunctival injection or drainage. Pupils equal, round, reactive to light and accommodation. Extraocular movements intact. THROAT: Moist mucous membranes. NECK: Supple, trachea midline. CARDIOVASCULAR: Regular rate and rhythm without murmurs, gallops, or rubs. Strong radial and pedal pulses. CHEST: Symmetric chest expansion with respiration. RESPIRATORY: Breath sounds clear to auscultation bilaterally. No accessory muscle use. No wheezes, rhonchi or rales. GASTROINTESTINAL: Abdomen soft, non-tender, nondistended. MUSCULOSKELETAL: No cyanosis or edema. No nail changes. NEURO: Cranial nerves II through XII grossly intact. Good muscle tone. PSYCH: Normal mood and affect. Good eye contact. Good insight and judgment. Normal speech. (Bernardo Deleon MD R1) A/P Assessment and Plan Patient is a 71-year-old female with a past medical history of hypertension, end -stage renal disease on dialysis, and CHF who presented after a fall. She has gone without dialysis for a prolonged period and has a history of noncompliance with medications and dialysis treatments. She was admitted for resumption of dialysis. Dialysis initiated on 07/30, outpatient dialysis chair to be arranged. Discharge Planning Discharge pending outpatient dialysis arranged, possibly today on 07/31 (Bernardo Deleon MD R1) Attending Attestation Patient seen and examined, discussed with resident team. I agree with assessment and management as documented and discussed with me. Await arrangement of outpt dialysis. Blood pressure under better control. pt with no new concerns. (Che Carpenter MD) Problem List: (1) End stage renal disease on dialysis ICD Codes: N18.6 - End stage renal disease; Z99.2 - Dependence on renal dialysis Status: Chronic Plan: Creatinine 4.99 on admission, trending down to 3.22 today Nephrology, Dr. Valencia, consulted. Appreciate recommendations. Patient restarted dialysis on 07/30 Nephrology working to arrange outpatient dialysis Continue to monitor renal function Caution with IV fluid hydration Monitor for signs of uremia (2) Hypertension ICD Codes: I10 - Hypertension Status: Chronic Plan: Blood Pressure 200/94 on admission Blood pressures within normal limits with the last 24 hours Continue to monitor BP Continue amlodipine 10 mg daily Continue Metoprolol 12.5mg PO Q12H Hydralazine 10mg IV Q6H PRN SBP >170, DBP >100 (3) CHF (congestive heart failure) ICD Codes: I50.9 - Heart failure, unspecified Status: Chronic Plan: CHF and pulmonary hypertension on echocardiogram in 2015 BNP >5000 on admission, trending down to 3250 on 07/29 Chest x-ray on admission shows cardiomegaly and increase in pulmonary vascularity, no pulmonary edema Echocardiogram on 07/29 showing ejection fraction 50-55%, moderate to severe mitral valve regurg, moderate to severe tricuspid valve regurg Will need outpatient follow-up with cardiology Cautious with IV fluids (4) GERD (gastroesophageal reflux disease) ICD Codes: K21.9 - Gastro-esophageal reflux disease without esophagitis Status: Chronic Plan: Protonix 40 daily (5) FEN/Ppx Status: Acute Plan: Fluids: PO Electrolytes: wnl, continue to monitor and replete accordingly Nutrition: renal diet DVT ppx: Heparin 5000 TID (Bernardo Deleon MD R1) Problem Qualifiers (1) Hypertension: Qualified Codes: I10 - Essential (primary) hypertension (2) CHF (congestive heart failure): Qualified Codes: I50.9 - Heart failure, unspecified (3) GERD (gastroesophageal reflux disease): Qualified Codes: K21.9 - Gastro-esophageal reflux disease without esophagitis Bernardo Deleon MD R1 Jul 31, 2017 09:52 Che Carpenter MD Jul 31, 2017 17:01
[2017-07-31] MEDS ORDERED: VITA500012 PO (09:55)
[2017-07-31] MEDS ORDERED: METO25TA3 PO (09:55)
[2017-07-31] MEDS ORDERED: AMLO10 PO (09:55)
[2017-07-31] MEDS ORDERED: RANI150T PO (09:57)
--- NOTE | 2017-07-31 10:09 | HHI.DCPOC ---
Discharge Care Plan Diagnosis: (1) End stage renal disease on dialysis (2) Abnormal echocardiogram (3) hypertension, not well-controlled Goals to Promote Your Health * To prevent worsening of your condition and complications * To maintain your health at the optimal level Directions to Meet Your Goals Take your medications as prescribed Follow your dietary instruction Follow activity as directed Keep your appointments as scheduled Take your immunizations and boosters as scheduled If your symptoms worsen call your PCP, if no PCP go to Urgent Care Center or Emergency Room Smoking is Dangerous to Your Health. Avoid second hand smoke Call the 24-hour hour crisis hotline for domestic abuse at Bernardo Deleon MD R1 Jul 31, 2017 10:09
--- NOTE | 2017-07-31 10:59 | HHI.NPPN ---
Subjective General Problems: Anemia, Hypertension Renal Failure: End Stage Renal Disease History of Present Illness Patient is a 71-year-old female who presented to ED s/p fall. Has a history of hypertension, chronic kidney disease, ESRD, who states that that she has stopped her dialysis about 6 weeks ago because she did not want to continue dialysis. Creatinine is 4.63 with a GFR 11ml/min. AVF in left arm. Additional Remarks Patient is OOB sitting in chair in good spirits. No SOB or edema. Tolerated dialysis well. (Marybel Keith) Review of Systems Respiratory Respiratory Remarks No SOB (Marybel Keith) Cardiovascular Cardiac Remarks No CP (Marybel Keith) Genitourinary Remarks Denies any dysuria (Marybel Keith) Objective Data Data 07/31/17 08/01/17 19:00 07:00 Intake Total 120 ml Balance 120 ml Intake Oral 120 ml Vital Signs Date Time Temp Pulse Resp B/P (MAP) Pulse Ox O2 Delivery O2 Flow Rate FiO2 07/31/17 06:02 72 07/31/17 05:01 75 07/31/17 04:57 98.6 81 16 138/85 (102) 96 07/31/17 04:00 73 07/31/17 03:04 71 07/31/17 02:03 71 07/31/17 01:03 75 07/31/17 00:45 76 07/30/17 23:20 98.8 75 16 140/81 (100) 96 07/30/17 23:02 76 07/30/17 22:04 87 07/30/17 21:01 74 07/30/17 20:06 66 07/30/17 19:47 98.5 80 18 143/93 (110) 98 07/30/17 19:05 75 07/30/17 17:00 71 07/30/17 16:29 98 21 07/30/17 16:00 81 07/30/17 15:51 97.6 73 148/90 (109) 98 07/30/17 14:27 143/87 (105) 07/30/17 14:00 72 07/30/17 13:00 85 07/30/17 12:44 97.7 84 20 174/101 (125) 97 2/6/18 12:05 73 (Marybel Keith) -: 07/31/17 0750 07/31/17 0750 Physical Exam General Appearance: Well Nourished, No Acute Distress, Comfortable (Marybel Keith) Eyes Eye Exam: Pupils Reactive (Marybel Keith) Throat Throat Exam: Oral Mucosa [place] & Moist (Marybel Keith) Neck Neck Exam: Neck Supple (Marybel Keith) Pulmonary Resp Exam: Clear Bilaterally, Breath Sounds Equal, No Distress (Marybel Keith) Cardiology CV Exam: Regular (Marybel Keith) Gastrointestinal/Abdomen GI Exam: Soft, Non-Tender, Bowel Sounds Present (Marybel Keith) Integumentary Skin Exam: Clear, Warm (Marybel Keith) Extremeties Extremities Exam: No Edema (Marybel Keith) Neurologic Neuro Exam: Alert, Awake (Marybel Keith) Psychiatric Psych Exam: Appropriate Responses (Marybel Keith) Assessment/Plan Discussed Condition With: Patient, Spouse Assessment Summary: End Stage Renal Disease Problem List: (1) End stage renal disease on dialysis ICD Codes: N18.6 - End stage renal disease; Z99.2 - Dependence on renal dialysis Status: Chronic Plan: Potassium WNL Vitamin D level low on replacement PTH is elevated Seen during dialysis tolerating well Outpatient dialysis is now arranged at [facility] T/TH/Sat at 3:30 Discussed the importance of not missing dialysis Ok from nephrology stand point for discharge (2) Hypertension ICD Codes: I10 - Hypertension Status: Chronic Plan: Improved Continue Norvasc and metoprolol started today. Hydralazine PRN continue to monitor (Marybel Keith) Problem List: (1) End stage renal disease on dialysis ICD Codes: N18.6 - End stage renal disease; Z99.2 - Dependence on renal dialysis Status: Chronic Plan: Potassium WNL Vitamin D level low on replacement PTH is elevated Seen during dialysis tolerating well Outpatient dialysis is now arranged at [facility] T/TH/Sat at 3:30 Discussed the importance of not missing dialysis Ok from nephrology stand point for discharge. Patient seen and examined, agree with above. (2) Hypertension ICD Codes: I10 - Hypertension Status: Chronic Plan: Improved Continue Norvasc and metoprolol started today. Hydralazine PRN continue to monitor (Cathi Valencia MD) Problem Qualifiers (1) Hypertension: Qualified Codes: I10 - Essential (primary) hypertension Marybel Keith Jul 31, 2017 10:59 Cathi Valencia MD Jul 31, 2017 11:35
--- NOTE | 2017-07-31 12:11 | HHI.DS ---
Discharge Summary Admission Date Jul 28, 2017 at 12:10 Admitting Diagnosis syncope, renal failure (1) End stage renal disease on dialysis Plan: Creatinine 4.99 on admission, trending down to 3.22 today Nephrology, Dr. Valencia, consulted. Appreciate recommendations. Patient restarted dialysis on 07/30 Nephrology working to arrange outpatient dialysis Continue to monitor renal function Caution with IV fluid hydration Monitor for signs of uremia ICD Codes: N18.6 - End stage renal disease; Z99.2 - Dependence on renal dialysis Status: Chronic (2) Hypertension Plan: Blood Pressure 200/94 on admission Blood pressures within normal limits with the last 24 hours Continue to monitor BP Continue amlodipine 10 mg daily Continue Metoprolol 12.5mg PO Q12H Hydralazine 10mg IV Q6H PRN SBP >170, DBP >100 ICD Codes: I10 - Hypertension Status: Chronic (3) CHF (congestive heart failure) Plan: CHF and pulmonary hypertension on echocardiogram in 2015 BNP >5000 on admission, trending down to 3250 on 07/29 Chest x-ray on admission shows cardiomegaly and increase in pulmonary vascularity, no pulmonary edema Echocardiogram on 07/29 showing ejection fraction 50-55%, moderate to severe mitral valve regurg, moderate to severe tricuspid valve regurg Will need outpatient follow-up with cardiology Cautious with IV fluids ICD Codes: I50.9 - Heart failure, unspecified Status: Chronic (4) GERD (gastroesophageal reflux disease) Plan: Protonix 40 daily ICD Codes: K21.9 - Gastro-esophageal reflux disease without esophagitis Status: Chronic (5) FEN/Ppx Plan: Fluids: PO Electrolytes: wnl, continue to monitor and replete accordingly Nutrition: renal diet DVT ppx: Heparin 5000 TID Status: Acute Brief History 71 y/o F, comes in after fall last night. She came into the ER today because the brought her in out of concern that she needs her dialysis. She has gone 6 weeks without dialysis and per patient her insurance billing specialist told her she could stop dialysis for as long as she wants because it is only going to prolong her life for a few years. She has continued to have a good appetite and eat well. Denies any dizzyness, mental change, or fatigue. She has continued to urinate multiple times per day. She states she overall feels very good without the dialysis. She has some R elbow pain from the fall last night but she does not have pain anywhere else. She did not lose consciousness at the time of the fall. She does not have any residual headache. She denies any CP/SOB/dizziness. Denies any fever/chills. Denies any recent flu/cold sx. Dr. Leon PCP - last seen >1 year ago Dialysis doctor - last seen months ago CBC/BMP: 07/31/17 0750 07/31/17 0750 Significant Findings Laboratory Tests Test 07/29/17 00:53 07/29/17 07:45 07/29/17 11:10 07/30/17 05:50 Troponin I 0.06 NG/ML (0.02-0.05) Red Blood Count 3.64 MIL/MM3 (4.00-5.30) Hemoglobin 11.2 GM/DL (11.6-15.3) Hematocrit 33.7 % (35.0-46.0) Mean Platelet Volume 11.7 FL (7.0-11.0) Neutrophils (%) (Auto) 77.7 % (16.0-70.0) Basophils (%) (Auto) 2.5 % (0.0-2.0) Lymphocytes # (Auto) 0.4 TH/MM3 (1.0-4.8) Platelet Morphology Comment ENLARGED (NORMAL) Ovalocytes 1+ (NORMAL) Prothrombin Time 12.4 SEC (9.8-11.6) Blood Urea Nitrogen 75 MG/DL (7-18) 70 MG/DL (7-18) Creatinine 4.63 MG/DL (0.50-1.00) 4.70 MG/DL (0.50-1.00) Albumin 3.3 GM/DL (3.4-5.0) Calcium Level 8.4 MG/DL (8.5-10.1) Chloride Level 112 MEQ/L (98-107) 112 MEQ/L (98-107) Carbon Dioxide Level 16.5 MEQ/L (21.0-32.0) 19.1 MEQ/L (21.0-32.0) Estimat Glomerular Filtration Rate 11 ML/MIN (>89) 11 ML/MIN (>89) Ammonia LESS THAN 10 MCMOL/L B-Type Natriuretic Peptide 3250 PG/ML (0-100) 25-Hydroxy Vitamin D Total 11.0 ng/ML (30-100) Parathyroid Hormone (Intact) 677.4 PG/ML (12.4-76.8) Urine Protein 100 mg/dL (NEG-TRACE) Urine Mucus FEW /lpf (OCC) Test 07/30/17 09:15 07/31/17 07:50 Red Blood Count 3.31 MIL/MM3 (4.00-5.30) Hemoglobin 10.2 GM/DL (11.6-15.3) Hematocrit 30.2 % (35.0-46.0) Platelet Count 140 TH/MM3 (150-450) Mean Platelet Volume 11.7 FL (7.0-11.0) Monocytes (%) (Auto) 12.2 % (0.0-8.0) Lymphocytes # (Auto) 0.8 TH/MM3 (1.0-4.8) Blood Urea Nitrogen 33 MG/DL (7-18) Creatinine 3.22 MG/DL (0.50-1.00) Calcium Level 8.3 MG/DL (8.5-10.1) Estimat Glomerular Filtration Rate 17 ML/MIN (>89) PE at Discharge GENERAL: Well-nourished, well-developed female patient lying bed comfortably, in no acute distress. SKIN: Warm and dry. No rashes or lesions present. EYES: No scleral icterus. No conjunctival injection or drainage. Pupils equal, round, reactive to light and accommodation. Extraocular movements intact. THROAT: Moist mucous membranes. NECK: Supple, trachea midline. CARDIOVASCULAR: Regular rate and rhythm without murmurs, gallops, or rubs. Strong radial and pedal pulses. CHEST: Symmetric chest expansion with respiration. RESPIRATORY: Breath sounds clear to auscultation bilaterally. No accessory muscle use. No wheezes, rhonchi or rales. GASTROINTESTINAL: Abdomen soft, non-tender, nondistended. MUSCULOSKELETAL: No cyanosis or edema. No nail changes. NEURO: Cranial nerves II through XII grossly intact. Good muscle tone. PSYCH: Normal mood and affect. Good eye contact. Good insight and judgment. Normal speech. Bernardo Deleon MD R1 Jul 31, 2017 12:11
--- NOTE | 2017-07-31 14:04 | HHI.HCPN ---
Reason for visit a. To assist with evaluation and management of symptoms including: syncope, dyspnea b. To assist medical decision maker(s) with: better understanding of current medical conditions; weighing benefits/burdens of medical treatment options; making medical treatment decisions. . Subjective/Interval History INTERVAL NOTE: The patient elected to restart her dialysis, and she seems to be tolerating it well. She is set up for a regular outpatient schedule now. Many people have stressed the importance of continuing it. Remains afebrile. . Advance Directives Living Will: Never completed Health Care Surrogate: Never completed Durable Power of Gear Roller: Never completed Objective Vital Signs Date Time Temp Pulse Resp B/P (MAP) Pulse Ox O2 Delivery O2 Flow Rate FiO2 07/31/17 08:00 98.2 80 18 154/79 (104) 98 07/31/17 06:02 72 07/31/17 05:01 75 07/31/17 04:57 98.6 81 16 138/85 (102) 96 07/31/17 04:00 73 07/31/17 03:04 71 07/31/17 02:03 71 07/31/17 01:03 75 07/31/17 00:45 76 07/30/17 23:20 98.8 75 16 140/81 (100) 96 07/30/17 23:02 76 07/30/17 22:04 87 07/30/17 21:01 74 07/30/17 20:06 66 07/30/17 19:47 98.5 80 18 143/93 (110) 98 07/30/17 19:05 75 07/30/17 17:00 71 07/30/17 16:29 98 21 07/30/17 16:00 81 07/30/17 15:51 97.6 73 148/90 (109) 98 07/30/17 14:27 143/87 (105) Intake & Output 07/31/17 07/31/17 07:00 19:00 Intake Total 200 ml 120 ml Output Total 150 ml Balance 50 ml 120 ml Intake Oral 200 ml 120 ml Output Urine Total 150 ml Physical Exam CONSTITUTIONAL/GENERAL: This is an adequately nourished patient, in no apparent distress. CARDIOVASCULAR: Regular rate and rhythm with grade 2-3 systolic murmur. No JVD. Peripheral pulses symmetric. RESPIRATORY/CHEST: Symmetric, unlabored respirations. A couple scattered rhonchi.. GASTROINTESTINAL: Abdomen soft, non-tender, nondistended. No hepato-splenomegaly , or palpable masses. No guarding. Bowel sounds present. MUSCULOSKELETAL: Extremities without clubbing, cyanosis, or edema. No joint tenderness or effusion noted. No calf tenderness. No mottling or clubbing. NEUROLOGICAL: Awake and alert. Motor and sensory grossly within normal limits. Follows commands. Cognitively sharp. Moves all extremities. PSYCHIATRIC: No obvious anxiety/depression. no apparent hallucinations or other psychotic thought process. . Diagnostic Tests Laboratory Laboratory Tests Test 07/29/17 00:53 07/29/17 07:45 07/29/17 11:10 07/30/17 05:50 Troponin I 0.06 NG/ML (0.02-0.05) White Blood Count 4.4 TH/MM3 (4.0-11.0) Red Blood Count 3.64 MIL/MM3 (4.00-5.30) Hemoglobin 11.2 GM/DL (11.6-15.3) Hematocrit 33.7 % (35.0-46.0) Mean Corpuscular Volume 92.6 FL (80.0-100.0) Mean Corpuscular Hemoglobin 30.7 PG (27.0-34.0) Mean Corpuscular Hemoglobin Concent 33.2 % (32.0-36.0) Red Cell Distribution Width 16.4 % (11.6-17.2) Platelet Count 150 TH/MM3 (150-450) Mean Platelet Volume 11.7 FL (7.0-11.0) Neutrophils (%) (Auto) 77.7 % (16.0-70.0) Lymphocytes (%) (Auto) 9.3 % (9.0-44.0) Monocytes (%) (Auto) 7.6 % (0.0-8.0) Eosinophils (%) (Auto) 2.9 % (0.0-4.0) Basophils (%) (Auto) 2.5 % (0.0-2.0) Neutrophils # (Auto) 3.4 TH/MM3 (1.8-7.7) Lymphocytes # (Auto) 0.4 TH/MM3 (1.0-4.8) Monocytes # (Auto) 0.3 TH/MM3 (0-0.9) Eosinophils # (Auto) 0.1 TH/MM3 (0-0.4) Basophils # (Auto) 0.1 TH/MM3 (0-0.2) CBC Comment AUTO DIFF Differential Comment AUTO DIFF CONFIRMED Platelet Estimate NORMAL (NORMAL) Platelet Morphology Comment ENLARGED (NORMAL) Ovalocytes 1+ (NORMAL) Prothrombin Time 12.4 SEC (9.8-11.6) Prothromb Time International Ratio 1.2 RATIO Blood Urea Nitrogen 75 MG/DL (7-18) 70 MG/DL (7-18) Creatinine 4.63 MG/DL (0.50-1.00) 4.70 MG/DL (0.50-1.00) Random Glucose 88 MG/DL (74-106) 86 MG/DL (74-106) Total Protein 6.4 GM/DL (6.4-8.2) Albumin 3.3 GM/DL (3.4-5.0) Calcium Level 8.4 MG/DL (8.5-10.1) 8.6 MG/DL (8.5-10.1) Magnesium Level 2.1 MG/DL (1.5-2.5) Alkaline Phosphatase 117 U/L (45-117) Aspartate Amino Transf (AST/SGOT) 30 U/L (15-37) Alanine Aminotransferase (ALT/SGPT) 45 U/L (10-53) Total Bilirubin 0.4 MG/DL (0.2-1.0) Sodium Level 142 MEQ/L (136-145) 141 MEQ/L (136-145) Potassium Level 4.3 MEQ/L (3.5-5.1) 4.2 MEQ/L (3.5-5.1) Chloride Level 112 MEQ/L (98-107) 112 MEQ/L (98-107) Carbon Dioxide Level 16.5 MEQ/L (21.0-32.0) 19.1 MEQ/L (21.0-32.0) Anion Gap 14 MEQ/L (5-15) 10 MEQ/L (5-15) Estimat Glomerular Filtration Rate 11 ML/MIN (>89) 11 ML/MIN (>89) Hemoglobin A1c 4.9 % (4.3-6.0) Ammonia LESS THAN 10 MCMOL/L B-Type Natriuretic Peptide 3250 PG/ML (0-100) 25-Hydroxy Vitamin D Total 11.0 ng/ML (30-100) Parathyroid Hormone (Intact) 677.4 PG/ML (12.4-76.8) Urine Color YELLOW (YELLW/STRAW) Urine Turbidity CLEAR (CLEAR) Urine pH 5.5 (5.0-8.5) Urine Specific [place] 1.011 (1.002-1.035) Urine Protein 100 mg/dL (NEG-TRACE) Urine Glucose (UA) NEG mg/dL (NEG) Urine Ketones NEG mg/dL (NEG) Urine Occult Blood NEG (NEG) Urine Nitrite NEG (NEG) Urine Bilirubin NEG (NEG) Urine Urobilinogen LESS THAN 2.0 MG/DL (LESS Urine Leukocyte Esterase NEG (NEG) Urine RBC LESS THAN 1 /hpf (0-3) Urine WBC 1 /hpf (0-5) Urine Squamous Epithelial Cells <1 /hpf (0-5) Urine Mucus FEW /lpf (OCC) Microscopic Urinalysis Comment CULT NOT INDICATED Phosphorus Level 3.3 MG/DL (2.5-4.9) Test 07/30/17 09:15 07/31/17 07:50 Hepatitis A IgM Antibody NEGATIVE (NEGATIVE) Hepatitis B Surface Antigen NEGATIVE (NEGATIVE) Hepatitis B Core IgM Antibody NEGATIVE (NEGATIVE) Hepatitis C Antibody NEGATIVE (NEGATIVE) White Blood Count 4.0 TH/MM3 (4.0-11.0) Red Blood Count 3.31 MIL/MM3 (4.00-5.30) Hemoglobin 10.2 GM/DL (11.6-15.3) Hematocrit 30.2 % (35.0-46.0) Mean Corpuscular Volume 91.1 FL (80.0-100.0) Mean Corpuscular Hemoglobin 30.7 PG (27.0-34.0) Mean Corpuscular Hemoglobin Concent 33.6 % (32.0-36.0) Red Cell Distribution Width 16.0 % (11.6-17.2) Platelet Count 140 TH/MM3 (150-450) Mean Platelet Volume 11.7 FL (7.0-11.0) Neutrophils (%) (Auto) 63.9 % (16.0-70.0) Lymphocytes (%) (Auto) 19.7 % (9.0-44.0) Monocytes (%) (Auto) 12.2 % (0.0-8.0) Eosinophils (%) (Auto) 3.0 % (0.0-4.0) Basophils (%) (Auto) 1.2 % (0.0-2.0) Neutrophils # (Auto) 2.6 TH/MM3 (1.8-7.7) Lymphocytes # (Auto) 0.8 TH/MM3 (1.0-4.8) Monocytes # (Auto) 0.5 TH/MM3 (0-0.9) Eosinophils # (Auto) 0.1 TH/MM3 (0-0.4) Basophils # (Auto) 0.0 TH/MM3 (0-0.2) CBC Comment DIFF FINAL Differential Comment Blood Urea Nitrogen 33 MG/DL (7-18) Creatinine 3.22 MG/DL (0.50-1.00) Random Glucose 84 MG/DL (74-106) Calcium Level 8.3 MG/DL (8.5-10.1) Sodium Level 139 MEQ/L (136-145) Potassium Level 3.9 MEQ/L (3.5-5.1) Chloride Level 103 MEQ/L (98-107) Carbon Dioxide Level 27.5 MEQ/L (21.0-32.0) Anion Gap 9 MEQ/L (5-15) Estimat Glomerular Filtration Rate 17 ML/MIN (>89) Result Diagram: 07/31/17 0750 07/31/17 0750 Assessment and Plan Disease Oriented Problem List: (1) syncope, unknown etiology (2) end-stage renal disease, she discontinued her own dialysis 6 weeks ago (3) hypertension, not well-controlled (4) history of CHF (5) pulmonary hypertension and severe mitral regurg on echo 2014 (6) anemia (7) GERD (8) hyperlipidemia (9) glaucoma Symptom Scale: (1) dyspnea 0-10 Scale: 0 (seems to have resolved in recent days) Pertinent Non-Medical Issues 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 Spiritual: Confucianism background, supported by her orthopedic cast specialist. Legal: The patient has capacity for decision-making at this time. Her would be the proxy decision-maker when she loses that capacity. Ethical issues impacting care: None . Important Contacts : Raphael Chávez [phone], . Prognosis Overall, the patient's prognosis is guarded, as her renal failure, CHF, and uncontrolled hypertension in the setting of patient noncompliance would predict a poor prognosis. . Code Status: No Code Plan * DO NOT RESUSCITATE * GOALS: The patient tells me that she definitely would not want cardiac or respiratory resuscitation "when that time comes" and she would not want to be on life support machines. She says she would be willing to return to dialysis treatments now. * DECISION-MAKING: The patient has capacity for decision-making at this time. Her would be the proxy decision-maker when she loses that capacity. * SYMPTOMS: At this time, the patient has no pain, anxiety, or any remaining dyspnea. No additional medication recommendations are made at this time. * Palliative Care will continue to follow the patient during this hospitalization. . Time Spent Total Floor Time (mins): 27 Face to Face Time (mins): 16 >50% Counseling/Coord of Care: Yes Attestation To help prompt me to consider important information that might be impacting today's encounter and assessment, information from prior notes written by myself or my colleagues may have been "brought forward" into today's note. My signature on this note, however, is an attestation that I personally performed the exam, history, and/or decision-making noted today, and, unless otherwise indicated, the interactions with patient, family, and staff as well as the review of records all occurred today. I also attest that the listed assessment and stated plan reflect my best clinical judgment today based on the combination of historical information, prior notes, and today's exam/ interactions. When time spent is documented, it refers only to time spent today by the signer, or if indicated, combined time spent today by collaborating physician/nurse practitioner. Gem Caro MD Jul 31, 2017 14:04
--- NOTE | 2017-07-31 16:18 | HHI.HCSW ---
Business Systems Lead Visit Cognitive Functioning Met with Mrs. Chávez. She is lying in bed, alert, oriented, and able to make her needs known. She is appropriate in conversation but presents with slight flight of ideas switching from topic to topic. Expresses she does not feel she "is not as sick as everyone keeps saying" but verbalizes understanding need for dialysis. Offered support. . Significant Family/Friend Eldest son at bedside. . Advance Directive Offered assistance with community DNR order. Verbalizes she does not wish to complete at this time, states she has been thinking about it and confirms DNR status but wishes to speak more with family about signing community DNR order. . Follow Up Visit Palliative care will continue to follow throughout hospitalization. Ana Maria Jaquez, OFFICE MACHINE SERVICER APPRENTICE Jul 31, 2017 16:18
[2017-08-01] VITALS (8 sets, daily range): BP systolic 141–164; BP diastolic 89–96; PULSE 67–77; RESP 16; TEMP 97.5–98.4; O2SAT 95–98
[2017-08-01] MEDS: HEPARIN SODIUM - SQ 10,000 UNITS/ML VIAL SQ SCH (06:18)
--- NOTE | 2017-08-01 08:55 | HHI.FPPN ---
Subjective Remarks No acute events overnight. Vital signs remained stable overnight. Patient states she is feeling well this morning. Denies chest pain, shortness of breath , nausea vomiting, abdominal pain. Patient has dialysis chair range Saturday at 3:30 PM. She states she has a ride available for this. (Bernardo Deleon MD R1) Objective Vitals Vital Signs Date Time Temp Pulse Resp B/P (MAP) Pulse Ox O2 Delivery O2 Flow Rate FiO2 08/01/17 04:57 97.5 74 16 142/95 (111) 96 08/01/17 04:00 68 08/01/17 01:00 74 08/01/17 00:50 98.3 76 16 141/89 (106) 95 08/01/17 00:00 77 08/01/17 00:00 70 07/31/17 23:00 74 07/31/17 22:00 76 07/31/17 21:00 78 07/31/17 20:00 88 07/31/17 20:00 78 07/31/17 19:00 76 07/31/17 16:00 98.2 80 18 154/79 (104) 98 07/31/17 12:00 98.0 86 16 130/85 (100) 96 I/O 07/31/17 07/31/17 07/31/17 08/01/17 08/01/17 08/01/17 07:00 15:00 23:00 07:00 15:00 23:00 Intake Total 200 ml 120 ml Output Total 150 ml Balance 50 ml 120 ml Intake Oral 200 ml 120 ml Output Urine Total 150 ml (Bernardo Deleon MD R1) Result Diagram: 07/31/17 0750 07/31/17 0750 Objective Remarks GENERAL: Well-nourished, well-developed female patient lying bed comfortably, in no acute distress. SKIN: Warm and dry. No rashes or lesions present. EYES: No scleral icterus. No conjunctival injection or drainage. Pupils equal, round, reactive to light and accommodation. Extraocular movements intact. THROAT: Moist mucous membranes. NECK: Supple, trachea midline. CARDIOVASCULAR: Regular rate and rhythm without murmurs, gallops, or rubs. Strong radial and pedal pulses. CHEST: Symmetric chest expansion with respiration. RESPIRATORY: Breath sounds clear to auscultation bilaterally. No accessory muscle use. No wheezes, rhonchi or rales. GASTROINTESTINAL: Abdomen soft, non-tender, nondistended. MUSCULOSKELETAL: No cyanosis or edema. No nail changes. NEURO: Cranial nerves II through XII grossly intact. Good muscle tone. PSYCH: Normal mood and affect. Good eye contact. Good insight and judgment. Normal speech. (Bernardo Deleon MD R1) A/P Assessment and Plan Patient is a 71-year-old female with a past medical history of hypertension, end -stage renal disease on dialysis, and CHF who presented after a fall. She has gone without dialysis for a prolonged period and has a history of noncompliance with medications and dialysis treatments. She was admitted for resumption of dialysis. Dialysis initiated on 07/30, outpatient dialysis chair arranged and safe for discharge. Discharge Planning Outpatient dialysis arranged. Discharge today either before dialysis or in time to make a dialysis appointment as outpatient. (Bernardo Deleon MD R1) Attending Attestation Patient seen, examined, and discussed with Dr. Deleon; exam/interview ~0800. Pt without complaints. BP under better control. Dialysis chair as an outpatient has been arranged. Discharge home today. (Che Carpenter MD) Problem List: (1) End stage renal disease on dialysis ICD Codes: N18.6 - End stage renal disease; Z99.2 - Dependence on renal dialysis Status: Chronic Plan: Creatinine 4.99 on admission, today's labs pending Nephrology, Dr. Valencia, consulted. Appreciate recommendations. Patient restarted dialysis on 07/30 Outpatient dialysis is now arranged at [facility] T/TH/Sat at 3:30 Calling nephrology to determine if patient will receive dialysis today prior to discharge or will attend outpatient dialysis treatment Continue to monitor renal function Caution with IV fluid hydration Monitor for signs of uremia (2) Hypertension ICD Codes: I10 - Hypertension Status: Chronic Plan: Blood Pressure 200/94 on admission Systolic blood pressure in the 140s to 150s overnight Continue to monitor BP Continue amlodipine 10 mg daily Continue Metoprolol 12.5mg PO Q12H Hydralazine 10mg IV Q6H PRN SBP >170, DBP >100 (3) CHF (congestive heart failure) ICD Codes: I50.9 - Heart failure, unspecified Status: Chronic Plan: CHF and pulmonary hypertension on echocardiogram in 2016 BNP >5000 on admission, trending down to 3250 on 07/29 Chest x-ray on admission shows cardiomegaly and increase in pulmonary vascularity, no pulmonary edema Echocardiogram on 07/29 showing ejection fraction 50-55%, moderate to severe mitral valve regurg, moderate to severe tricuspid valve regurg Will need outpatient follow-up with cardiology Cautious with IV fluids (4) GERD (gastroesophageal reflux disease) ICD Codes: K21.9 - Gastro-esophageal reflux disease without esophagitis Status: Chronic Plan: Protonix 40 daily (5) FEN/Ppx Status: Acute Plan: Fluids: PO Electrolytes: wnl, continue to monitor and replete accordingly Nutrition: renal diet DVT ppx: Heparin 5000 TID (Bernardo Deleon MD R1) Problem Qualifiers (1) Hypertension: Qualified Codes: I10 - Essential (primary) hypertension (2) CHF (congestive heart failure): Qualified Codes: I50.9 - Heart failure, unspecified (3) GERD (gastroesophageal reflux disease): Qualified Codes: K21.9 - Gastro-esophageal reflux disease without esophagitis Bernardo Deleon MD R1 Aug 01, 2017 08:55 Che Carpenter MD Aug 01, 2017 15:15
[2017-08-01] MEDS: METOPROLOL TARTRATE 25 MG TAB PO SCH (09:00)
--- NOTE | 2017-08-01 09:06 | HHI.DS ---
Discharge Summary Admission Date Jul 28, 2017 at 12:10 Discharge Date: Aug 01, 2017 Admitting Diagnosis syncope, renal failure (1) End stage renal disease on dialysis ICD Codes: N18.6 - End stage renal disease; Z99.2 - Dependence on renal dialysis Status: Chronic (2) Hypertension ICD Codes: I10 - Hypertension Status: Chronic (3) CHF (congestive heart failure) ICD Codes: I50.9 - Heart failure, unspecified Status: Chronic Brief History 71 y/o F, comes in after fall last night. She came into the ER today because the brought her in out of concern that she needs her dialysis. She has gone 6 weeks without dialysis and per patient her scarf gluer told her she could stop dialysis for as long as she wants because it is only going to prolong her life for a few years. She has continued to have a good appetite and eat well. Denies any dizzyness, mental change, or fatigue. She has continued to urinate multiple times per day. She states she overall feels very good without the dialysis. She has some R elbow pain from the fall last night but she does not have pain anywhere else. She did not lose consciousness at the time of the fall. She does not have any residual headache. She denies any CP/SOB/dizziness. Denies any fever/chills. Denies any recent flu/cold sx. Dr. Leon PCP - last seen >1 year ago Dialysis doctor - last seen months ago CBC/BMP: 07/31/17 0750 07/31/17 0750 Significant Findings Laboratory Tests Test 07/29/17 11:10 07/30/17 05:50 07/30/17 09:15 07/31/17 07:50 Urine Protein 100 mg/dL (NEG-TRACE) Urine Mucus FEW /lpf (OCC) Blood Urea Nitrogen 70 MG/DL (7-18) 33 MG/DL (7-18) Creatinine 4.70 MG/DL (0.50-1.00) 3.22 MG/DL (0.50-1.00) Chloride Level 112 MEQ/L (98-107) Carbon Dioxide Level 19.1 MEQ/L (21.0-32.0) Estimat Glomerular Filtration Rate 11 ML/MIN (>89) 17 ML/MIN (>89) Red Blood Count 3.31 MIL/MM3 (4.00-5.30) Hemoglobin 10.2 GM/DL (11.6-15.3) Hematocrit 30.2 % (35.0-46.0) Platelet Count 140 TH/MM3 (150-450) Mean Platelet Volume 11.7 FL (7.0-11.0) Monocytes (%) (Auto) 12.2 % (0.0-8.0) Lymphocytes # (Auto) 0.8 TH/MM3 (1.0-4.8) Calcium Level 8.3 MG/DL (8.5-10.1) PE at Discharge GENERAL: Well-nourished, well-developed female patient lying bed comfortably, in no acute distress. SKIN: Warm and dry. No rashes or lesions present. EYES: No scleral icterus. No conjunctival injection or drainage. Pupils equal, round, reactive to light and accommodation. Extraocular movements intact. THROAT: Moist mucous membranes. NECK: Supple, trachea midline. CARDIOVASCULAR: Regular rate and rhythm without murmurs, gallops, or rubs. Strong radial and pedal pulses. CHEST: Symmetric chest expansion with respiration. RESPIRATORY: Breath sounds clear to auscultation bilaterally. No accessory muscle use. No wheezes, rhonchi or rales. GASTROINTESTINAL: Abdomen soft, non-tender, nondistended. MUSCULOSKELETAL: No cyanosis or edema. No nail changes. NEURO: Cranial nerves II through XII grossly intact. Good muscle tone. PSYCH: Normal mood and affect. Good eye contact. Good insight and judgment. Normal speech. Hospital Course Patient was admitted with a known history of ESRD originally on dialysis who presented after a fall. She was found to be profoundly hypertensive as well as having significantly elevated creatinine.We will patient did not wish to continue dialysis, but after discussions with family and her scarf gluer Dr. Valencia she decided to proceed with dialysis. She started dialysis on Sunday 07/30 and her creatinine improved from 4.70 to 3.22. Her blood pressure on admission was also severely elevated to 200 systolic. He was started on metoprolol tartrate 2.5 mg twice a day and Norvasc 10 mg daily, and her blood pressures improved significantly. Blood pressure was well controlled on these medications during her hospital stay. BNP was also elevated on admission at over 5000. Echocardiogram was performed which showed ejection fraction 50-55%, moderate to severe mitral valve regurg, moderate to severe tricuspid valve regurg. Patient will need to follow up with cardiology as an outpatient. Outpatient dialysis was arranged arranged at [facility]/TH/Sat at 3:30 p.m. Nephrology felt patient was safe for discharge and patient felt safe for discharge as well. Pt Condition on Discharge: Good Discharge Disposition: Discharge Home Discharge Instructions DIET: Follow Instructions for: Dialysis Diet Activities you can perform: Regular-No Restrictions Follow up Referrals: Cardiology - 2 Weeks Nephrology - 2 Weeks PCP Follow-up - 1 Week New Medications: Ranitidine (Ranitidine) 150 Mg Tab 150 MG PO BID for Heartburn Management, #60 TAB 0 Refills Amlodipine (Norvasc) 10 Mg Tab 10 MG PO DAILY, #30 TAB 1 Refill Ergocalciferol (Ergocalciferol) 50,000 Unit Cap 20958 UNITS PO Q7D, #4 CAP Metoprolol Tartrate (Metoprolol Tartrate) 25 Mg Tab 12.5 MG PO Q12HR, #60 TAB 1 Refill Bernardo Deleon MD R1 Aug 01, 2017 09:05
--- NOTE | 2017-08-01 09:22 | HHI.NPPN ---
Subjective General Problems: Anemia, Hypertension Renal Failure: End Stage Renal Disease History of Present Illness Patient is a 71-year-old female who presented to ED s/p fall. Has a history of hypertension, chronic kidney disease, ESRD, who states that that she has stopped her dialysis about 6 weeks ago because she did not want to continue dialysis. Creatinine is 4.63 with a GFR 11ml/min. AVF in left arm. Additional Remarks No SOB or edema. Seen during dialysis (Marybel Keith) Review of Systems Respiratory Respiratory Remarks No SOB (Marybel Keith) Cardiovascular Cardiac Remarks No CP (Marybel Keith) Gastrointestinal GI Remarks No abdominal pain (Marybel Keith) Genitourinary Remarks Denies any dysuria (Marybel Keith) Objective Data Data Vital Signs Date Time Temp Pulse Resp B/P (MAP) Pulse Ox O2 Delivery O2 Flow Rate FiO2 08/01/17 04:57 97.5 74 16 142/95 (111) 96 08/01/17 04:00 68 08/01/17 01:00 74 08/01/17 00:50 98.3 76 16 141/89 (106) 95 08/01/17 00:00 77 08/01/17 00:00 70 07/31/17 23:00 74 07/31/17 22:00 76 07/31/17 21:00 78 07/31/17 20:00 88 07/31/17 20:00 78 07/31/17 19:00 76 07/31/17 16:00 98.2 80 18 154/79 (104) 98 07/31/17 12:00 98.0 86 16 130/85 (100) 96 (Marybel Keith) -: 07/31/17 0750 07/31/17 0750 Physical Exam General Appearance: Well Nourished, No Acute Distress, Comfortable (Marybel Keith) Eyes Eye Exam: Pupils Reactive (Marybel Keith) Throat Throat Exam: Oral Mucosa Ladd & Moist (Marybel Keith) Neck Neck Exam: Neck Supple (Marybel Keith) Pulmonary Resp Exam: Clear Bilaterally, Breath Sounds Equal, No Distress (Marybel Keith) Cardiology CV Exam: Regular (Marybel Keith) Gastrointestinal/Abdomen GI Exam: Soft, Non-Tender, Bowel Sounds Present (Marybel Keith) Integumentary Skin Exam: Clear, Warm (Marybel Keith) Extremeties Extremities Exam: No Edema (Marybel Keith) Neurologic Neuro Exam: Alert, Awake (Marybel Keith) Psychiatric Psych Exam: Appropriate Responses (Marybel Keith) Assessment/Plan Discussed Condition With: Patient, Spouse Assessment Summary: End Stage Renal Disease Problem List: (1) End stage renal disease on dialysis ICD Codes: N18.6 - End stage renal disease; Z99.2 - Dependence on renal dialysis Status: Chronic Plan: Potassium WNL Vitamin D level low on replacement PTH is elevated Seen during dialysis tolerating well Outpatient dialysis is now arranged at [facility] at 3:30 Discussed the importance of not missing dialysis Ok from nephrology stand point for discharge. Labs reviewed (2) Hypertension ICD Codes: I10 - Hypertension Status: Chronic Plan: Improved Continue Norvasc and metoprolol started today. Hydralazine PRN continue to monitor (Marybel Keith) Problem List: (1) End stage renal disease on dialysis ICD Codes: N18.6 - End stage renal disease; Z99.2 - Dependence on renal dialysis Status: Chronic Plan: Potassium WNL Vitamin D level low on replacement PTH is elevated Seen during dialysis tolerating well Outpatient dialysis is now arranged at [facility]/TH/Sat at 3:30 Discussed the importance of not missing dialysis Ok from nephrology stand point for discharge. Labs reviewed. Patient seen and examined, agree with above. Patient for D/C home, to come for HD on Sat. at [facility]. (2) Hypertension ICD Codes: I10 - Hypertension Status: Chronic Plan: Improved Continue Norvasc and metoprolol started today. Hydralazine PRN continue to monitor (Cathi Valencia MD) Problem Qualifiers (1) Hypertension: Qualified Codes: I10 - Essential (primary) hypertension Marybel Keith Aug 01, 2017 09:22 Cathi Valencia MD Aug 01, 2017 15:39
[2017-08-01 10:27] LABS: BICARBONATE 28.9 MEQ/L (21.0-32.0); CALCIUM 8.5 MG/DL (8.5-10.1); CREATININE 3.01 MG/DL (0.50-1.00)
[2017-08-01] MEDS: PANTOPRAZOLE SOD 40 MG DELAYED RELEASE TAB PO SCH (14:31)
== END 2017-08-01 14:55 | disposition home or self-care (01) | DRG 291 ==
LOC: NEPC 10:06 → NEDA 12:10 → HCIN 15:26
PROVIDERS: ADMIT Family Medicine; ATTEND Family Medicine
PROC: 5A1D70Z Performance of Urinary Filtration, Intermittent, Less than 6 Hours Per Day (ICD-10-PCS; principal; 2017-07-30)
DX: I13.2 Hypertensive heart and chronic kidney disease with heart failure and with stage 5 chronic kidney disease, or end stage renal disease (principal); N18.6 End stage renal disease; I27.20 Pulmonary hypertension, unspecified; I08.1 Rheumatic disorders of both mitral and tricuspid valves; I50.9 Heart failure, unspecified; K21.9 Gastro-esophageal reflux disease without esophagitis; H40.9 Unspecified glaucoma; E78.5 Hyperlipidemia, unspecified; D63.1 Anemia in chronic kidney disease; R55 Syncope and collapse; Z66 Do not resuscitate; Z91.14 Patient's other noncompliance with medication regimen; Z91.15 Patient's noncompliance with renal dialysis; Z99.2 Dependence on renal dialysis
CPT/HCPCS: 70450; 71045; 72170; 80048; 80053; 80074; 81001; 82140; 82306; 82550; 82552; 82948; 83036; 83735; 83880; 83970; 84100; 84484; 85025; 85610; 85730; 90935; 93005; 93306; 94150; J0360; J1644

== ENCOUNTER 2017-09-10 13:34 | Inpatient (IN) | payer OTHER, MEDICARE ==
[~2017-09-10 13:34] MED LIST changes: +AMLO10 PO; -CALC667T PO; -CARV3.125 PO; -CENTCHW3 PO; -FURO1TAB93 PO; -HYDRA50 PO; -ISOS30 PO; -LABE100 PO; +METO25TA3 PO; +RANI150T PO; +VITA500012 PO
[2017-09-10 14:04] VITALS: BP 182/98; PULSE 100; RESP 26; TEMP 98; O2SAT 80
--- NOTE | 2017-09-10 14:52 | RADRPT ---
EXAM DATE/TIME: 09/10/2017 14:33 [facility] COMPARISON: CHEST SINGLE AP, July 28, 2017, 11:25. CHEST PA & LAT, April 06, 2015, 8:34. INDICATIONS : Short of breath. MEDICAL HISTORY : Hypertension. Congestive heart failure. SURGICAL HISTORY : None. ENCOUNTER: Initial ACUITY: 1 day PAIN SCORE: 0/10 LOCATION: Bilateral chest FINDINGS: PA and lateral views of the chest demonstrates new bilateral patchy interstitial infiltrates in both lung patel. The heart size is enlarged. No definite pleural effusions. The bony structures are stabl e.. CONCLUSION: There are new patchy bilateral interstitial infiltrates in both lung patel suggestive of either pulm onary edema versus pneumonia. Moderate stable cardiomegaly. Barrie Solano MD on September 10, 2017 at 14:49 Board Certified Radiologist. This report was verified electronically.
[2017-09-10 16:05] LABS: AUTOMATED NEUTROPHIL # 7.5 TH/MM3 (1.8-7.7); BASOPHIL # 0.1 TH/MM3 (0-0.2); BASOPHIL % 1.2 % (0.0-2.0); EOSINOPHIL % 0.5 % (0.0-4.0); HEMATOCRIT 44.6 % (35.0-46.0); HEMOGLOBIN 14.3 GM/DL (11.6-15.3); LYMPH % 3.9 % (9.0-44.0); LYMPHOCYTE # 0.3 TH/MM3 (1.0-4.8); MEAN CELL VOLUME 94.8 FL (80.0-100.0); MEAN CORPUSCULAR HEMOGLOBIN 30.4 PG (27.0-34.0); MEAN CORPUSCULAR HGB CONC 32.1 % (32.0-36.0); MEAN PLATELET VOLUME 11.3 FL (7.0-11.0); MONO % 5.9 % (0.0-8.0); MONOCYTE # 0.5 TH/MM3 (0-0.9); NEUT % 88.5 % (16.0-70.0); PLATELET COUNT 113 TH/MM3 (150-450); RED CELL DISTRIBUTION WIDTH 17.4 % (11.6-17.2); WHITE BLOOD COUNT 8.5 TH/MM3 (4.0-11.0)
[2017-09-10 16:16] LABS: ALBUMIN 4.2 GM/DL (3.4-5.0); AST (GOT) 35 U/L (15-37); BICARBONATE 23.9 MEQ/L (21.0-32.0); BLOOD UREA NITROGEN 66 MG/DL (7-18); CALCIUM 8.8 MG/DL (8.5-10.1); CHLORIDE 107 MEQ/L (98-107); CREATININE 5.58 MG/DL (0.50-1.00); GLOMERULAR FILTRATION RATE 9 ML/MIN (>89); GLUCOSE,RANDOM 94 MG/DL (74-106); SODIUM (NA) 143 MEQ/L (136-145)
[2017-09-10 16:22] LABS: ALKALINE PHOSPHATASE 241 U/L (45-117); ALT (GPT) 51 U/L (10-53); TOTAL BILIRUBIN ADULT 0.5 MG/DL (0.2-1.0); TOTAL PROTEIN 8.9 GM/DL (6.4-8.2); TROPONIN I 0.11 NG/ML (0.02-0.05)
--- NOTE | 2017-09-10 17:38 | PD ---
HPI Chief Complaint: Respiratory Symptoms Time Seen by Provider: 17:36 Travel History International Travel<30 days: No Contact w/Intl Traveler<30days: No Traveled to known affect area: No History of Present Illness HPI 71-year-old female patient with hypertension, end-stage renal disease on dialysis with Dr. Valencia, due for dialysis this afternoon, presents to the ER today because she has had 1 day history of increased shortness of breath and dyspnea on exertion. She denies any coughing, fevers, chest pains, or any other issues. Modifying Factors: None Associated Signs & Symptoms: Increased shortness of breath, dyspnea on exertion Risk Factors: End-stage renal on dialysis PFSH Past Medical History Asthma: No Autoimmune Disease: No Blood Disorders: No Anxiety: No Depression: No Heart Rhythm Problems: No Cancer: No Cardiovascular Problems: Yes High Cholesterol: Yes Chest Pain: Yes Congestive Heart Failure: No COPD: No Cerebrovascular Accident: No Diabetes: No Endocrine: No Gastrointestinal Disorders: No GERD: No Genitourinary: Yes Hepatitis: No Hiatal Hernia: No Hypertension: Yes Immune Disorder: No Implanted Vascular Access Dvce: Yes Kidney Stones: No Musculoskeletal: No Neurologic: Yes Psychiatric: No Reproductive: No Respiratory: No Migraines: No Myocardial Infarction: No Renal Failure: Yes Seizures: No Sleep Apnea: No Thyroid Disease: No Ulcer: No Menopausal: Yes : 4 Past Surgical History Abdominal Surgery: No AICD: No Arteriovenous Shunt: No Cardiac Surgery: No Section: Yes (*2) Ear Surgery: No Endocrine Surgery: No Eye Surgery: No Genitourinary Surgery: No Gynecologic Surgery: Yes (C SECTION, HYSTERECTOMY) Hysterectomy: Yes Insulin Pump: No Joint Replacement: No Neurologic Surgery: No Oral Surgery: No Pacemaker: No Thoracic Surgery: No Other Surgery: Yes (fistula) Social History Alcohol Use: No Tobacco Use: No Substance Use: No Allergies-Medications (Allergen,Severity, Reaction): Coded Allergies: No Known Allergies (Verified , 04/09/16) Reported Meds & Prescriptions Reported Meds & Active Scripts Active Ranitidine (Ranitidine HCl) 150 Mg Tab 150 Mg PO BID Ergocalciferol 50,000 Unit Cap 50,000 Units PO Q7D Norvasc (Amlodipine Besylate) 10 Mg Tab 10 Mg PO DAILY Metoprolol Tartrate 25 Mg Tab 12.5 Mg PO Q12HR Review of Systems Except as stated in HPI: all other systems reviewed are Neg Physical Exam Narrative GENERAL: Well-developed elderly -[place] female patient currently on moderate respiratory distress. Awake and oriented 3. SKIN: Focused skin assessment warm/dry. HEAD: Atraumatic. Normocephalic. EYES: Pupils equal and round. No scleral icterus. No injection or drainage. ENT: No nasal bleeding or discharge. Mucous membranes pink and moist. NECK: Trachea midline. Positive JVD. CARDIOVASCULAR: Regular rate and rhythm. No murmur appreciated. RESPIRATORY: No accessory muscle use. Decreased at the bases with mild crackling. Breath sounds equal bilaterally. GASTROINTESTINAL: Abdomen soft, non-tender, nondistended. Hepatic and splenic margins not palpable. MUSCULOSKELETAL: No obvious deformities. No clubbing. No cyanosis. Bilateral pitting edema of the legs. NEUROLOGICAL: Awake and alert. No obvious cranial nerve deficits. Motor grossly within normal limits. Normal speech. PSYCHIATRIC: Appropriate mood and affect; insight and judgment normal. Data Data Last Documented VS Vital Signs Date Time Temp Pulse Resp B/P (MAP) Pulse Ox O2 Delivery O2 Flow Rate FiO2 09/10/17 14:04 98.0 100 26 182/98 (126) 80 Orders Orders Oxygen Administration (09/10/17 14:06) Complete Blood Count With Diff (09/10/17 14:06) Comprehensive Metabolic Panel (09/10/17 14:06) B-Type Natriuretic Peptide (09/10/17 14:06) Act Partial Throm Time (Ptt) (09/10/17 14:06) Prothrombin Time / Inr (Pt) (09/10/17 14:06) Ckmb (Isoenzyme) Profile (09/10/17 14:06) Troponin I (09/10/17 14:06) Urinalysis - C+S If Indicated (09/10/17 14:06) Electrocardiogram (09/10/17 14:06) Chest, Pa & Lat (09/10/17 14:06) CKMB (09/10/17 15:30) CKMB% (09/10/17 15:30) Consult Nephrology (09/10/17 ) Blood Flow Rate (09/10/17 17:46) Dialysate Flow Rate (09/10/17 17:46) Dialyzer (09/10/17 17:46) Concentrate (09/10/17 17:46) Acid Concentrate (09/10/17 17:46) Length Of Dialysis (09/10/17 17:46) Frequency Of Dialysis (09/10/17 17:46) Dialysis Obtain (09/10/17 17:46) Needle Size (09/10/17 17:46) Dialysis Schedule (09/10/17 17:46) Resp Oxygen Pradeep C Titrat 1-4 L (09/10/17 ) Dialysis Weight (09/10/17 17:46) ^ Obtain As Needed (09/10/17 17:46) Sodium Chlor 0.9% 1000 Ml Inj (Ns 1000 M (09/10/17 17:46) Heparin Inj (Heparin Inj) (09/10/17 18:00) Sodium Chlor 0.9% 1000 Ml Inj (Ns 1000 M (09/10/17 17:46) Sodium Chlor 0.9% 1000 Ml Inj (Ns 1000 M (09/10/17 17:46) Mannitol Inj (Mannitol Inj) (09/10/17 18:00) Albumin 25% Inj (Albumin 25% Inj) (09/10/17 18:00) Sodium Chloride 0.9% Flush (Ns Flush) (09/10/17 18:00) Heparin Inj (Heparin Inj) (09/10/17 18:00) Gentamicin Inj (Gentamicin Inj) (09/10/17 18:00) Ondansetron Inj (Zofran Inj) (09/10/17 18:00) Acetaminophen (Tylenol) (09/10/17 18:00) Diphenhydramine (Benadryl) (09/10/17 18:00) Nitroglycerin Sl (Nitrostat Sl) (09/10/17 18:00) Clonidine (Catapres) (09/10/17 18:00) Gelatin 12 Mm/7 Mm Top (Gelfoam 12 Mm/7 (09/10/17 18:00) Furosemide Inj (Lasix Inj) (09/10/17 18:00) Labs Laboratory Tests Test 09/10/17 15:30 White Blood Count 8.5 TH/MM3 Red Blood Count 4.70 MIL/MM3 Hemoglobin 14.3 GM/DL Hematocrit 44.6 % Mean Corpuscular Volume 94.8 FL Mean Corpuscular Hemoglobin 30.4 PG Mean Corpuscular Hemoglobin Concent 32.1 % Red Cell Distribution Width 17.4 % Platelet Count 113 TH/MM3 Mean Platelet Volume 11.3 FL Neutrophils (%) (Auto) 88.5 % Lymphocytes (%) (Auto) 3.9 % Monocytes (%) (Auto) 5.9 % Eosinophils (%) (Auto) 0.5 % Basophils (%) (Auto) 1.2 % Neutrophils # (Auto) 7.5 TH/MM3 Lymphocytes # (Auto) 0.3 TH/MM3 Monocytes # (Auto) 0.5 TH/MM3 Eosinophils # (Auto) 0.0 TH/MM3 Basophils # (Auto) 0.1 TH/MM3 CBC Comment AUTO DIFF Blood Urea Nitrogen 66 MG/DL Creatinine 5.58 MG/DL Random Glucose 94 MG/DL Total Protein 8.9 GM/DL Albumin 4.2 GM/DL Calcium Level 8.8 MG/DL Alkaline Phosphatase 241 U/L Aspartate Amino Transf (AST/SGOT) 35 U/L Alanine Aminotransferase (ALT/SGPT) 51 U/L Total Bilirubin 0.5 MG/DL Sodium Level 143 MEQ/L Potassium Level 5.1 MEQ/L Chloride Level 107 MEQ/L Carbon Dioxide Level 23.9 MEQ/L Anion Gap 12 MEQ/L Estimat Glomerular Filtration Rate 9 ML/MIN Total Creatine Kinase 287 U/L Creatine Kinase MB 4.7 NG/ML Creatine Kinase MB % 1.6 % Troponin I 0.11 NG/ML B-Type Natriuretic Peptide 3390 PG/ML MDM Medical Decision Making Medical Screen Exam Complete: Yes Emergency Medical Condition: Yes Medical Record Reviewed: Yes Interpretation(s) Laboratory Tests Test 09/10/17 15:30 Red Cell Distribution Width 17.4 % (11.6-17.2) Platelet Count 113 TH/MM3 (150-450) Mean Platelet Volume 11.3 FL (7.0-11.0) Neutrophils (%) (Auto) 88.5 % (16.0-70.0) Lymphocytes (%) (Auto) 3.9 % (9.0-44.0) Lymphocytes # (Auto) 0.3 TH/MM3 (1.0-4.8) Blood Urea Nitrogen 66 MG/DL (7-18) Creatinine 5.58 MG/DL (0.50-1.00) Total Protein 8.9 GM/DL (6.4-8.2) Alkaline Phosphatase 241 U/L (45-117) Estimat Glomerular Filtration Rate 9 ML/MIN (>89) Total Creatine Kinase 287 U/L (26-192) Creatine Kinase MB 4.7 NG/ML (0.5-3.6) Troponin I 0.11 NG/ML (0.02-0.05) B-Type Natriuretic Peptide 3390 PG/ML (0-100) Last 24 hours Impressions Chest X-Ray 09/10/17 1406 Signed Impressions: Service Date/Time: Sunday, September 10, 2017 14:33 - CONCLUSION: There are new patchy bilateral interstitial infiltrates in both lung patel suggestive of either pulmonary edema versus pneumonia. Moderate stable cardiomegaly. Barrie Solano MD Differential Diagnosis CHF versus fluid overload versus pneumonia versus metabolic issues Narrative Course Chest x-ray and lab work would indicate pulmonary edema, possibly secondary to fluid overload. Case is discussed with Dr. Valencia who agrees to dialyze the patient today. Planning to admit the patient for further treatment. Case is discussed with Dr. Hernandez for admission. Diagnosis Primary Impression: Congestive heart failure (CHF) Additional Impressions: Pulmonary edema, acute End stage renal disease on dialysis Admitting Information Admitting Physician Requests: Admit Leida Black MD Sep 10, 2017 17:38
[2017-09-10] MEDS ORDERED: SODIUM CHLOR 0.9% 1000 ML INJ 1,000 ML OTHER PRN ×2 (17:46)
[2017-09-10] MEDS ORDERED: SODIUM CHLOR 0.9% 1000 ML INJ 1,000 ML IV PRN (17:46)
[2017-09-10] MEDS ORDERED: cloNIDine HCL 0.1 MG TAB PO PRN (18:00)
[2017-09-10] MEDS ORDERED: SODIUM CHLORIDE 0.9% FLUSH 10 ML FLUSH IV FLUSH PRN ×2 (18:00→18:15)
[2017-09-10] MEDS ORDERED: ALBUMIN 25% INJ 100 ML IV PRN (18:00)
[2017-09-10] MEDS ORDERED: GELATIN 12 MM/7 MM FOAM TOP PRN (18:00)
[2017-09-10] MEDS ORDERED: GENTAMICIN SULFATE 20 MG/2 ML VIAL OTHER PRN (18:00)
[2017-09-10] MEDS ORDERED: diphenhydrAMINE HCL 25 MG CAP PO PRN (18:00)
[2017-09-10] MEDS ORDERED: MANNITOL 12.5 GM/50 ML VIAL IV PRN (18:00)
[2017-09-10] MEDS ORDERED: NITROGLYCERIN 0.4 MG SL 25 TABS/BTL SL PRN (18:00)
[2017-09-10] MEDS ORDERED: HEPARIN SODIUM - IV 10,000 UNITS/10 ML VIAL PRN (18:00)
[2017-09-10] MEDS ORDERED: ONDANSETRON HCL 4 MG/2 ML VIAL IV PUSH PRN (18:00)
[2017-09-10] MEDS ORDERED: HEPARIN SODIUM - IV 10,000 UNITS/10 ML VIAL IV FLUSH PRN (18:00)
[2017-09-10] MEDS ORDERED: FUROSEMIDE 40 MG/4 ML VIAL IV PUSH ONE (18:00)
[2017-09-10] MEDS ORDERED: ACETAMINOPHEN 325 MG TAB PO PRN (18:00)
[2017-09-10] MEDS ORDERED: ERGO2000 PO (18:09)
[2017-09-10] MEDS ORDERED: CALC1CAP PO (18:09)
[2017-09-10] MEDS ORDERED: GABA100C4 PO (18:09)
[2017-09-10 18:10] VITALS: BP 190/101; PULSE 80; RESP 20; O2SAT 90
[2017-09-10] MEDS ORDERED: MAGNESIUM HYDROXIDE SUSP 30 ML CUP PO PRN (18:15)
[2017-09-10] MEDS ORDERED: SENNOSIDES 8.6 MG TAB PO PRN (18:15)
[2017-09-10] MEDS ORDERED: LACTULOSE SYRUP 20 GM/30 ML CUP PO PRN (18:15)
[2017-09-10] MEDS ORDERED: BISACODYL 10 MG SUPP RECTAL PRN (18:15)
[2017-09-10] MEDS ORDERED: NALOXONE HCL 0.4 MG/ML AMP IV PUSH PRN (18:15)
[2017-09-10 19:00] LABS: ACANTHOCYTES OCC (NORMAL); OVALOCYTES 1+ (NORMAL)
[2017-09-10] MEDS: DOCUSATE SODIUM 50 MG/SENNA 8.6 MG TAB PO SCH (21:00)
[2017-09-10 22:29] VITALS: BP 157/89; PULSE 77; RESP 18; O2SAT 98
[2017-09-10] MEDS: HEPARIN SODIUM - SQ 10,000 UNITS/ML VIAL SQ SCH (22:50)
[2017-09-10] MEDS: SODIUM CHLORIDE 0.9% FLUSH 10 ML FLUSH IV FLUSH SCH (22:50)
[2017-09-10 23:04] LABS: INTERNATIONAL NORMALIZED RATIO 1.1 RATIO; PROTHROMBIN TIME - PATIENT 10.7 SEC (9.8-11.6)
[2017-09-10 23:07] LABS: AMORPHOUS SEDIMENT, URINE RARE; BILIRUBIN, URINE NEG (NEG); BLOOD, URINE NEG (NEG); GLUCOSE,URINE NEG (NEG); KETONE, URINE NEG (NEG); NITRITE,URINE NEG (NEG); SQUAMOUS EPITHELIAL CELL URINE 2 /hpf (0-5); URINE COLOR LIGHT-YELLOW (YELLW/STRAW); URINE LEUKOCYTE ESTERASE NEG (NEG)
--- NOTE | 2017-09-10 23:42 | HHI.HP ---
[facility] Thong Leon MD Admission Diagnosis CHF exacerbation/end-stage renal disease on dialysis/elevated tropon Diagnoses: Chief Complaint: Shortness of breath Travel History International Travel<30 Days: No Contact w/Intl Traveler <30 Da: No Traveled to Known Affected Are: No History of Present Illness Ms. Chávez is a 71-year-old female with a history of end-stage renal disease on hemodialysis, hypertension, moderate to severe mitral regurgitation and tricuspid regurgitation with low normal systolic function with an EF of 50-55% per echocardiogram 07/29/2017 who presented to the hospital on 09/10/2017 for evaluation of shortness of breath and dyspnea on exertion. The ER physician notes indicate that she missed dialysis this afternoon. Her dialysis physician/ personnel coordinator is Dr. Valencia. Chest x-ray in the emergency room shows new patchy bilateral interstitial infiltrates in both lung patel suggestive of either pulmonary edema versus pneumonia. Moderate stable cardiomegaly. The patient is somewhat confused at the time of my visit and tells me she is in [place], does not know where her went, and states that she has not missed any dialysis sessions. She denies any shortness of breath at the time of my visit and does appear to be breathing quite comfortably. She has been afebrile with no elevation in white blood count. She is unable to tell me why she is in the emergency room without providing some prompting as to her symptoms. She reports her shortness of breath was severe when directly questioned about this. She is unable to tell me how many days she has had symptoms. BNP is 3390. BUN 66, creatinine 5.58, and estimated GFR 9 prior to hemodialysis in which 5 L of fluid was removed. She denies any recent fever, chills, nausea, vomiting, or diarrhea. She is able to provide much of her past medical history and I was able to verify that the information she provided me was correct from prior notes available in the EMR. Echocardiogram 07/29/2017 shows low normal left ventricular systolic function with EF estimated in the range of 50-55%, moderate to severe mitral valve and tricuspid valve regurgitation, and moderate concentric left ventricular hypertrophy. Review of Systems Except as stated in HPI: all other systems reviewed are Neg Past Family Social History Past Medical History end-stage renal disease on hemodialysis, hypertension, history of CHF, anemia, GERD, hyperlipidemia, glaucoma, moderate to severe mitral regurgitation and tricuspid regurgitation with low normal systolic function with an EF of 50-55% per echocardiogram 07/29/2017 . Past Surgical History Left forearm AV fistula placement, hysterectomy, 4 . Reported Medications Reported Meds & Active Scripts Active Ranitidine (Ranitidine HCl) 150 Mg Tab 150 Mg PO BID Norvasc (Amlodipine Besylate) 10 Mg Tab 10 Mg PO DAILY Metoprolol Tartrate 25 Mg Tab 12.5 Mg PO Q12HR Reported Calcium Acetate (Phosphate Binder) 667 Mg Cap 1,334 Mg PO TID Vitamin D2 (Ergocalciferol) 2,000 Unit Tab 50,000 Units PO WEEKLY Gabapentin 100 Mg Cap 100 Mg PO BID . Allergies: Coded Allergies: No Known Allergies (Verified , 04/09/16) Family History Father lived to be nearly 100, mother from CVA, there is no family history of end-stage renal disease. . Social History Tobacco: Denies Alcohol: Denies Illicit Drugs: Denies The patient states that she lives at home with her . Physical Exam Vital Signs Vital Signs Date Time Temp Pulse Resp B/P (MAP) Pulse Ox O2 Delivery O2 Flow Rate FiO2 09/10/17 22:29 77 18 157/89 (111) 98 Nasal Cannula 2.00 09/10/17 18:14 92 Nasal Cannula 2.00 09/10/17 18:10 80 20 190/101 (130) 90 Nasal Cannula 2.00 09/10/17 14:04 98.0 100 26 182/98 (126) 80 Physical Exam CONSTITUTIONAL: This is a pleasant, cachectic female patient, in no apparent distress. Integumentary: No rashes. Cool and dry. HEAD: Atraumatic. Normocephalic. EYES: No scleral icterus. No injection or drainage. ENT: Nose without bleeding, purulent drainage. NECK: Trachea midline. No JVD. CARDIOVASCULAR: Regular rate and rhythm without murmurs, gallops, or rubs. Trace pretibial pitting edema noted. Left AV fistula with positive bruit and thrill. RESPIRATORY: Clear to auscultation. Breath sounds equal bilaterally. No wheezes , rales, or rhonchi. GASTROINTESTINAL: Abdomen soft, non-tender, nondistended. No guarding. MUSCULOSKELETAL: Extremities without clubbing, cyanosis. No calf tenderness. NEUROLOGICAL: Awake and alert though with some mild recent memory impairment noted. Motor and sensory grossly within normal limits. Normal speech. . Laboratory Laboratory Tests Test 09/10/17 15:30 09/10/17 22:35 09/10/17 22:40 White Blood Count 8.5 Red Blood Count 4.70 Hemoglobin 14.3 Hematocrit 44.6 Mean Corpuscular Volume 94.8 Mean Corpuscular Hemoglobin 30.4 Mean Corpuscular Hemoglobin Concent 32.1 Red Cell Distribution Width 17.4 Platelet Count 113 Mean Platelet Volume 11.3 Neutrophils (%) (Auto) 88.5 Lymphocytes (%) (Auto) 3.9 Monocytes (%) (Auto) 5.9 Eosinophils (%) (Auto) 0.5 Basophils (%) (Auto) 1.2 Neutrophils # (Auto) 7.5 Lymphocytes # (Auto) 0.3 Monocytes # (Auto) 0.5 Eosinophils # (Auto) 0.0 Basophils # (Auto) 0.1 CBC Comment AUTO DIFF Differential Comment AUTO DIFF CONFIRMED Platelet Estimate LOW Platelet Morphology Comment ENLARGED Ovalocytes 1+ Acanthocytes OCC Blood Urea Nitrogen 66 Creatinine 5.58 Random Glucose 94 Total Protein 8.9 Albumin 4.2 Calcium Level 8.8 Alkaline Phosphatase 241 Aspartate Amino Transf (AST/SGOT) 35 Alanine Aminotransferase (ALT/SGPT) 51 Total Bilirubin 0.5 Sodium Level 143 Potassium Level 5.1 Chloride Level 107 Carbon Dioxide Level 23.9 Anion Gap 12 Estimat Glomerular Filtration Rate 9 Total Creatine Kinase 287 Creatine Kinase MB 4.7 Creatine Kinase MB % 1.6 Troponin I 0.11 B-Type Natriuretic Peptide 3390 Urine Color LIGHT-YELLOW Urine Turbidity CLEAR Urine pH 7.0 Urine Specific [place] 1.010 Urine Protein 30 Urine Glucose (UA) NEG Urine Ketones NEG Urine Occult Blood NEG Urine Nitrite NEG Urine Bilirubin NEG Urine Urobilinogen LESS THAN 2.0 Urine Leukocyte Esterase NEG Urine WBC LESS THAN 1 Urine Squamous Epithelial Cells 2 Urine Amorphous Sediment RARE Microscopic Urinalysis Comment CULT NOT INDICATED Prothrombin Time 10.7 Prothromb Time International Ratio 1.1 Activated Partial Thromboplast Time 23.5 Result Diagram: 09/10/17 1530 09/10/17 1530 Imaging Last Impressions Chest X-Ray 09/10/17 1406 Signed Impressions: Service Date/Time: Sunday, September 10, 2017 14:33 - CONCLUSION: There are new patchy bilateral interstitial infiltrates in both lung patel suggestive of either pulmonary edema versus pneumonia. Moderate stable cardiomegaly. Barrie Solano MD . Caprini VTE Risk Assessment Caprini VTE Risk Assessment: Mod/High Risk (score >= 2) Caprini Risk Assessment Model Point Value = 1 Point Value = 2 Point Value = 3 Point Value = 5 Age 41-60 Minor surgery BMI > 25 kg/m2 Swollen legs Varicose veins or History of unexplained or recurrent spontaneous Oral contraceptives or hormone replacement Sepsis (< 1 month) Serious lung disease, including pneumonia (< 1 month) Abnormal pulmonary function Acute myocardial infarction Congestive heart failure (< 1 month) History of inflammatory bowel disease Medical patient at bed rest Age 61-74 Arthroscopic surgery Major open surgery (> 45 min) Laparoscopic surgery (> 45 min) Malignancy Confined to bed (> 72 hours) Immobilizing plaster cast Central venous access Age >= 75 History of VTE Family history of VTE Factor V Leiden Prothrombin [id number] Lupus anticoagulant Anticardiolipin antibodies Elevated serum homocysteine Heparin-induced thrombocytopenia Other congenital or acquired thrombophilia Stroke (< 1 month) Elective arthroplasty Hip, pelvis, or leg fracture Acute spinal cord injury (< 1 month) Prophylaxis Regimen Total Risk Factor Score Risk Level Prophylaxis Regimen 0-1 Low Early ambulation 2 Moderate Order ONE of the following: *Sequential Compression Device (SCD) *Heparin 5000 units SQ BID 3-4 Higher Order ONE of the following medications: *Heparin 5000 units SQ TID *Enoxaparin/Lovenox 40 mg SQ daily (WT < 150 kg, CrCl > 30 mL/min) *Enoxaparin/Lovenox 30 mg SQ daily (WT < 150 kg, CrCl > 10-29 mL/min) *Enoxaparin/Lovenox 30 mg SQ BID (WT < 150 kg, CrCl > 30 mL/min) AND/OR *Sequential Compression Device (SCD) 5 or more Highest Order ONE of the following medications: *Heparin 5000 units SQ TID (Preferred with Epidurals) *Enoxaparin/Lovenox 40 mg SQ daily (WT < 150 kg, CrCl > 30 mL/min) *Enoxaparin/Lovenox 30 mg SQ daily (WT < 150 kg, CrCl > 10-29 mL/min) *Enoxaparin/Lovenox 30 mg SQ BID (WT < 150 kg, CrCl > 30 mL/min) AND *Sequential Compression Device (SCD) Assessment and Plan Assessment and Plan Ms. Chávez is a 71-year-old female with a history of end-stage renal disease on hemodialysis, hypertension, moderate to severe mitral regurgitation and tricuspid regurgitation with low normal systolic function with an EF of 50-55% per echocardiogram 07/29/2017 who presented to the hospital on 09/10/2017 for evaluation of shortness of breath and dyspnea on exertion. The ER physician notes indicate that she missed dialysis this afternoon. The patient is somewhat confused at the time of my visit and tells me she is in [place], does not know where her went, and states that she has not missed any dialysis sessions. Her dialysis physician/personnel coordinator is Dr. Valencia. Chest x- ray in the emergency room shows new patchy bilateral interstitial infiltrates in both lung patel suggestive of either pulmonary edema versus pneumonia. Moderate stable cardiomegaly. ESRD on HD -BUN 66, creatinine 5.58, estimated GFR 9 - worse than prior visit -Dr. Valencia, personnel coordinator, consulted and patient is status post hemodialysis with 5 L of fluid removed -We will recheck renal function with labs in the morning and follow results -Monitor I&O every shift Pulmonary edema secondary to fluid overload and valvular heart disease - Echocardiogram 07/29/2017 shows low normal left ventricular systolic function with EF estimated in the range of 50-55%, moderate to severe mitral valve and tricuspid valve regurgitation, and moderate concentric left ventricular hypertrophy. -Chest x-ray shows new patchy bilateral interstitial infiltrates in both lungs suggestive of pulmonary edema versus pneumonia with moderate stable cardiomegaly. -Symptoms resolved after hemodialysis - supports pulmonary edema as source of SOB/ULLOA -Continuous cardiac telemetry to monitor for dysrhythmia -Continue to monitor Hypertension -Resume home metoprolol 12.5 mg p.o. every 12 hours, Norvasc 10 mg p.o. daily -PRN clonidine 0.1 mg p.o. every 6 hours for systolic blood pressure greater than or equal to 170 or diastolic blood pressure greater than or equal to 100 -Monitor trends in blood pressure and adjust treatment as indicated DVT prophylaxis -Heparin 5000 units subcu every 12 hours and SCDs . Code Status Cannot clarify at this time given patient's confusion; she was DNR during last admission but did not want to complete a community DNR form with the palliative care team. Will need to clarify with patient later as patient is demonstrating some mild cognitive deficits that may be c/w owning or metabolic process. . Discussed Condition With Dr. Arana, patient, and RN Physician Certification 2 Midnight Certification Type: Admission for Inpatient Services Order for Inpatient Services The services are ordered in accordance with Medicare regulations or non- Medicare payer requirements, as applicable. In the case of services not specified as inpatient-only, they are appropriately provided as inpatient services in accordance with the 2-midnight benchmark. Estimated LOS (days): 2 days is the estimated time the patient will need to remain in the hospital, assuming treatment plan goals are met and no additional complications. Post-Hospital Plan: Not yet determined Mar Christianson Sep 10, 2017 23:42
[2017-09-11] VITALS: BP 195/94; PULSE 68; RESP 16; O2SAT 99
[2017-09-11] MEDS ORDERED: cloNIDine HCL 0.1 MG TAB PO PRN (00:45)
[2017-09-11 04:35] LABS: AUTOMATED NEUTROPHIL # 4.7 TH/MM3 (1.8-7.7); BASOPHIL # 0.1 TH/MM3 (0-0.2); BASOPHIL % 1.2 % (0.0-2.0); EOSINOPHIL # 0.1 TH/MM3 (0-0.4); EOSINOPHIL % 1.3 % (0.0-4.0); HEMOGLOBIN 11.8 GM/DL (11.6-15.3); LYMPH % 7.2 % (9.0-44.0); LYMPHOCYTE # 0.4 TH/MM3 (1.0-4.8); MEAN CELL VOLUME 90.7 FL (80.0-100.0); MEAN CORPUSCULAR HEMOGLOBIN 29.7 PG (27.0-34.0); MEAN CORPUSCULAR HGB CONC 32.7 % (32.0-36.0); MEAN PLATELET VOLUME 11.3 FL (7.0-11.0); MONO % 7.6 % (0.0-8.0); MONOCYTE # 0.4 TH/MM3 (0-0.9); NEUT % 82.7 % (16.0-70.0); PLATELET COUNT 102 TH/MM3 (150-450); RED BLOOD COUNT 3.97 MIL/MM3 (4.00-5.30); RED CELL DISTRIBUTION WIDTH 16.9 % (11.6-17.2); WHITE BLOOD COUNT 5.7 TH/MM3 (4.0-11.0)
[2017-09-11 05:13] LABS: ALKALINE PHOSPHATASE 178 U/L (45-117); ALT (GPT) 33 U/L (10-53); AST (GOT) 21 U/L (15-37); BICARBONATE 27.5 MEQ/L (21.0-32.0); BLOOD UREA NITROGEN 36 MG/DL (7-18); CALCIUM 8.4 MG/DL (8.5-10.1); CHLORIDE 104 MEQ/L (98-107); CREATININE 3.72 MG/DL (0.50-1.00); GLOMERULAR FILTRATION RATE 14 ML/MIN (>89); GLUCOSE,RANDOM 85 MG/DL (74-106); SODIUM (NA) 142 MEQ/L (136-145); TOTAL BILIRUBIN ADULT 0.8 MG/DL (0.2-1.0); TOTAL PROTEIN 6.5 GM/DL (6.4-8.2); TROPONIN I 0.26 NG/ML (0.02-0.05)
[2017-09-11 08:00] VITALS: BP 165/89; PULSE 60; RESP 20; TEMP 98; O2SAT 92
[2017-09-11] MEDS: SODIUM CHLORIDE 0.9% FLUSH 10 ML FLUSH IV FLUSH SCH ×2 (08:54→22:17)
[2017-09-11] MEDS: HEPARIN SODIUM - SQ 10,000 UNITS/ML VIAL SQ SCH ×2 (08:54→22:12)
[2017-09-11] MEDS: METOPROLOL TARTRATE 25 MG TAB PO SCH ×2 (08:55→22:12)
[2017-09-11] MEDS: FAMOTIDINE 20 MG TAB PO SCH (08:55)
[2017-09-11] MEDS: DOCUSATE SODIUM 50 MG/SENNA 8.6 MG TAB PO SCH ×2 (08:56→22:13)
--- NOTE | 2017-09-11 09:50 | PD.CONS ---
HPI Service Nephrology Consult Requested By DR. Stef Black Reason for Consult ESRD and HD Primary Care Physician Thong Leon MD History of Present Illness Patient is a 71-year-old female with a history of ESRD on hemodialysis, hypertension, Hx of CHF, anemia, GERD, HLD, glaucoma, moderate to severe mitral regurgitation and tricuspid regurgitation. Patient presented to ED with increased SOB. Chest x-ray in the emergency room shows new patchy bilateral interstitial infiltrates in both lung patel suggestive of either pulmonary edema versus pneumonia. Moderate stable cardiomegaly. Nephrology is consulted for ESRD. Mrs. Chávez dialysis days are //SAT. She had dialysis yesterday and 5 liters removed. She denies any SOB now. NO fever, chills, nausea, vomiting, or diarrhea. Her mental status is not at baseline is only able to tell me her name and . (Marybel Keith) Review of Systems Respiratory: DENIES: Sputum production, Shortness of breath Cardiovascular: DENIES: Chest pain Gastrointestinal: DENIES: Nausea, Vomiting Psychiatric: COMPLAINS OF: Confusion (Marybel Keith) Past Family Social History Allergies: Coded Allergies: No Known Allergies (Verified , 04/09/16) Past Medical History ESRD on hemodialysis HTN History of CHF Anemia GERD Hyperlipidemia Glaucoma Moderate to severe mitral regurgitation and tricuspid regurgitation with low normal systolic function with an EF of 50-55% per echocardiogram 07/29/2017 per records Past Surgical History Left forearm AV fistula placement Hysterectomy 4 Active Ordered Medications Current Medications Medications (Trade) Dose Ordered Sig/So Route Start Time Stop Time Status Last Admin Sodium Chloride 1,000 ml @ 0 mls/hr Q0M PRN OTHER 09/10/17 17:46 (Heparin Inj) 8,000 units UNSCH PRN IV FLUSH 09/10/17 18:00 Sodium Chloride 1,000 ml @ 200 mls/hr Q5H PRN IV 09/10/17 17:46 Sodium Chloride 1,000 ml @ 0 mls/hr Q0M PRN OTHER 09/10/17 17:46 (Mannitol Inj) 12.5 gm UNSCH PRN IV 09/10/17 18:00 Albumin Human 100 ml @ 60 mls/hr UNSCH PRN IV 09/10/17 18:00 (NS Flush) 5 ml UNSCH PRN IV FLUSH 3/20/18 18:00 (Heparin Inj) UNSCH PRN .XX 09/10/17 18:00 (Gentamicin Inj) 20 mg UNSCH PRN OTHER 09/10/17 18:00 (Zofran Inj) 4 mg UNSCH PRN IV PUSH 09/10/17 18:00 (Tylenol) 650 mg UNSCH PRN PO 09/10/17 18:00 (Benadryl) 25 mg UNSCH PRN PO 09/10/17 18:00 (Nitrostat Sl) 0.4 mg UNSCH PRN SL 09/10/17 18:00 (Catapres) 0.1 mg UNSCH PRN PO 09/10/17 18:00 09/10/17 19:00 (Gelfoam 12 Mm/7 Mm Top) 1 foam UNSCH PRN TOP 09/10/17 18:00 (NS Flush) 2 ml UNSCH PRN IV FLUSH 09/10/17 18:15 (NS Flush) 2 ml BID IV FLUSH 09/10/17 21:00 09/10/17 22:50 (Heparin Inj) 5,000 units Q12H SQ 09/10/17 20:00 09/11/17 08:54 (Narcan Inj) 0.4 mg UNSCH PRN IV PUSH 09/10/17 18:15 (Lenora-Colace) 1 tab BID PO 09/10/17 21:00 09/11/17 08:56 (Milk Of Magnesia Liq) 30 ml Q12H PRN PO 09/10/17 18:15 (Senokot) 17.2 mg Q12H PRN PO 09/10/17 18:15 (Dulcolax Supp) 10 mg DAILY PRN RECTAL 09/10/17 18:15 (Lactulose Liq) 30 ml DAILY PRN PO 09/10/17 18:15 (Catapres) 0.1 mg Q6H PRN PO 09/11/17 00:45 09/11/17 01:04 (Norvasc) 10 mg DAILY PO 09/11/17 09:00 09/11/17 08:55 (Lopressor) 12.5 mg Q12HR PO 09/11/17 09:00 09/11/17 08:55 (Pepcid) 20 mg DAILY PO 09/11/17 09:00 09/11/17 08:55 Family History Father lived to be nearly 100, mother from CVA, there is no family history of end-stage renal disease. Social History Tobacco: Denies Alcohol: Denies Illicit Drugs: Denies The patient states that she lives at home with her (Marybel KeithP) Physical Exam Vital Signs Vital Signs Date Time Temp Pulse Resp B/P (MAP) Pulse Ox O2 Delivery O2 Flow Rate FiO2 09/11/17 08:00 98.0 60 20 165/89 (114) 92 09/11/17 00:00 68 16 195/94 (127) 99 Nasal Cannula 2.00 09/10/17 22:29 77 18 157/89 (111) 98 Nasal Cannula 2.00 09/10/17 18:14 92 Nasal Cannula 2.00 09/10/17 18:10 80 20 190/101 (130) 90 Nasal Cannula 2.00 09/10/17 14:04 98.0 100 26 182/98 (126) 80 Physical Exam GENERAL: Alert oriented to self SKIN: Warm and dry. Lt AVF positive thrill and bruit HEAD: Normocephalic. EYES: No scleral icterus. No injection or drainage. NECK: Supple, trachea midline. No JVD or lymphadenopathy. CARDIOVASCULAR: Regular rate and rhythm without murmurs, gallops, or rubs. RESPIRATORY: Breath sounds equal bilaterally. No accessory muscle use. GASTROINTESTINAL: Abdomen soft, non-tender, nondistended. MUSCULOSKELETAL: No cyanosis, or edema. BACK: Nontender without obvious deformity. No CVA tenderness. Laboratory Laboratory Tests Test 09/10/17 15:30 09/10/17 22:35 09/10/17 22:40 09/11/17 03:45 White Blood Count 8.5 5.7 Red Blood Count 4.70 3.97 Hemoglobin 14.3 11.8 Hematocrit 44.6 36.0 Mean Corpuscular Volume 94.8 90.7 Mean Corpuscular Hemoglobin 30.4 29.7 Mean Corpuscular Hemoglobin Concent 32.1 32.7 Red Cell Distribution Width 17.4 16.9 Platelet Count 113 102 Mean Platelet Volume 11.3 11.3 Neutrophils (%) (Auto) 88.5 82.7 Lymphocytes (%) (Auto) 3.9 7.2 Monocytes (%) (Auto) 5.9 7.6 Eosinophils (%) (Auto) 0.5 1.3 Basophils (%) (Auto) 1.2 1.2 Neutrophils # (Auto) 7.5 4.7 Lymphocytes # (Auto) 0.3 0.4 Monocytes # (Auto) 0.5 0.4 Eosinophils # (Auto) 0.0 0.1 Basophils # (Auto) 0.1 0.1 CBC Comment AUTO DIFF DIFF FINAL Differential Comment AUTO DIFF CONFIRMED Platelet Estimate LOW Platelet Morphology Comment ENLARGED Ovalocytes 1+ Acanthocytes OCC Blood Urea Nitrogen 66 36 Creatinine 5.58 3.72 Random Glucose 94 85 Total Protein 8.9 6.5 Albumin 4.2 3.0 Calcium Level 8.8 8.4 Alkaline Phosphatase 241 178 Aspartate Amino Transf (AST/SGOT) 35 21 Alanine Aminotransferase (ALT/SGPT) 51 33 Total Bilirubin 0.5 0.8 Sodium Level 143 142 Potassium Level 5.1 4.1 Chloride Level 107 104 Carbon Dioxide Level 23.9 27.5 Anion Gap 12 11 Estimat Glomerular Filtration Rate 9 14 Total Creatine Kinase 287 173 Creatine Kinase MB 4.7 Creatine Kinase MB % 1.6 Troponin I 0.11 0.26 B-Type Natriuretic Peptide 3390 Urine Color LIGHT-YELLOW Urine Turbidity CLEAR Urine pH 7.0 Urine Specific [place] 1.010 Urine Protein 30 Urine Glucose (UA) NEG Urine Ketones NEG Urine Occult Blood NEG Urine Nitrite NEG Urine Bilirubin NEG Urine Urobilinogen LESS THAN 2.0 Urine Leukocyte Esterase NEG Urine WBC LESS THAN 1 Urine Squamous Epithelial Cells 2 Urine Amorphous Sediment RARE Microscopic Urinalysis Comment CULT NOT INDICATED Prothrombin Time 10.7 Prothromb Time International Ratio 1.1 Activated Partial Thromboplast Time 23.5 (Marybel Keith) Result Diagram: 09/11/17 0345 09/11/17 0345 Imaging Last Impressions Chest X-Ray 09/10/17 1406 Signed Impressions: Service Date/Time: Sunday, September 10, 2017 14:33 - CONCLUSION: There are new patchy bilateral interstitial infiltrates in both lung patel suggestive of either pulmonary edema versus pneumonia. Moderate stable cardiomegaly. Barrie Solano MD (Marybel Keith) Assessment and Plan Problem List: (1) End stage renal disease on dialysis ICD Codes: N18.6 - End stage renal disease; Z99.2 - Dependence on renal dialysis Status: Chronic Plan: ESRD with HD on T/TH/ SAT HD yesterday with 5 liters removed Will continue phoslo and ergocalciferol Sensipar ordered based on labs at [facility] Dialysis planned for tomorrow (2) Hypertension ICD Codes: I10 - Hypertension Status: Chronic Plan: Continue home medications Will monitor (Marybel Keith) Problem List: (1) End stage renal disease on dialysis ICD Codes: N18.6 - End stage renal disease; Z99.2 - Dependence on renal dialysis Status: Chronic Plan: ESRD with HD on T/TH/ SAT HD yesterday with 5 liters removed Will continue phoslo and ergocalciferol Sensipar ordered based on labs at [facility] Dialysis planned for tomorrow or today. Patient seen and examined, agree with above. HD done last night. Told to restrict salt and fluid intake. (2) Hypertension ICD Codes: I10 - Hypertension Status: Chronic Plan: Continue home medications Will monitor (Cathi Valencia MD) Problem Qualifiers (1) Hypertension: Qualified Codes: I10 - Essential (primary) hypertension Marybel Keith Sep 11, 2017 09:50 Cathi Valencia MD Sep 11, 2017 11:25
[2017-09-11] MEDS ORDERED: ERGOCALCIFEROL (VIT D2) 50,000 UNIT CAP PO SCH (10:00)
[2017-09-11] MEDS ORDERED: CINA30 PO (10:37)
--- NOTE | 2017-09-11 10:41 | HHI.FF ---
Face to Face Verification Diagnosis: (1) End stage renal disease on dialysis (2) CHF (congestive heart failure) Physical Therapy Order: Evaluate and Treat Home Health Nursing Order: CHF education Nursing assessment with vital signs Instructions: Will need 1500ml fluid restrictions. 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 My clinical findings support the need for the requested home health care services because: Med compliance is questionable Need for psychosocial assistance I certify that my clinical findings support that this patient is homebound because: Unsafe to leave home unassisted Surendra Hernandez MD Sep 11, 2017 10:41
[2017-09-11] MEDS ORDERED: ISOS30TA3 PO (10:49)
[2017-09-11 12:32] VITALS: BP 144/76; PULSE 61; RESP 15; TEMP 97.6; O2SAT 96
--- NOTE | 2017-09-11 14:20 | EKG ---
Date Performed: 09/11/2017 Time Performed: 11:03:31 PTAGE: 71 years EKG: Sinus rhythm POSSIBLE LEFT ATRIAL ENLARGEMENT PROLONGED QT INTERVAL ABNORMAL ECG Compared to prior electrocardiog monica, QT interval appears to have lengthened slightly. PREVIOUS TRACING : 09/10/2017 18.17 DOCTOR: Ernesto Bowers Interpretating Date/Time 09/11/2017 14:18:46
[2017-09-11 16:50] VITALS: BP 159/83; PULSE 67; RESP 16; O2SAT 96
[2017-09-11] MEDS: CALCIUM ACETATE 667 MG CAP PO SCH ×2 (16:56→17:59)
[2017-09-11] MEDS: ISOSORBIDE MONONITRATE 30 MG CR TAB (IMDUR) PO SCH (16:56)
--- NOTE | 2017-09-11 19:03 | MB ---
cc: Asya Carias MD DATE: 09/11/2017 HISTORY OF PRESENT ILLNESS: Ms. Chávez is a 71-year-old black female with a history of end-stage renal disease on hemodialysis, hypertension, moderate to severe mitral regurgitation, who presented yesterday with progressive dyspnea. She missed her last dialysis. She was found to have bilateral infiltrates. She was dialyzed and her symptoms markedly improved. She was initially mildly confused, which is now improved. She has not had any chest pain. Her last echocardiogram on 07/29/2017 showed ejection fraction 50% to 55%, moderate to severe mitral and tricuspid regurgitation and moderate left ventricular hypertrophy. PAST MEDICAL HISTORY: Positive for end-stage renal disease on hemodialysis, hypertension, congestive heart failure, diastolic dysfunction, valvular heart disease as above, anemia, gastroesophageal reflux disease, dyslipidemia, and glaucoma. PAST SURGICAL HISTORY: History of left forearm AV fistula placement, hysterectomy, and . MEDICATIONS: 1. Gabapentin. 2. Vitamin D2. 3. Calcium. 4. Metoprolol. 5. Norvasc. 6. Ranitidine. ALLERGIES: NONE. SOCIAL HISTORY: The patient does not smoke. She does not drink alcohol. She is . FAMILY HISTORY: Negative for heart disease. REVIEW OF SYSTEMS: Otherwise negative. PHYSICAL EXAMINATION: VITAL SIGNS: Blood pressure 159/83, pulse 67 and regular. HEENT: Negative. NECK: 2+ carotid upstrokes, no bruits. LUNGS: Clear. HEART: Regular with a III/ systolic murmur at the apex radiating to the left sternal border. No gallop or rub. ABDOMEN: Soft. EXTREMITIES: Trace pretibial pitting edema, 2+ pulses. NEUROLOGIC: Grossly nonfocal. DIAGNOSTIC STUDIES: EKG was reviewed and showed normal sinus rhythm, normal axis, nonspecific ST-T changes, peak T waves and inferior Q-waves. LABORATORY DATA: Hemoglobin 11.8. Potassium 4.1. Creatinine 3.7. CK 173. Troponin 0.11, 0.26 and 0.15. BNP 3,390. ASSESSMENT AND PLAN: 1. Acute exacerbation of chronic diastolic dysfunction. 2. Fluid overload secondary to noncompliance. 3. End-stage renal disease on hemodialysis. 4. Hypertension. 5. Moderate to severe mitral regurgitation. 6. Tricuspid regurgitation. 7. Anemia. 8. Dyslipidemia. DISPOSITION: Ms. Chávez will be monitored on telemetry. She feels significantly better after her last dialysis and removal of 5 liters of fluid. She needs to stay compliant with her medical care and dialysis. I recommend to continue her current medical program for hypertension including beta ugo. I recommend to increase her activities. I will follow her for cardiology during her hospitalization. MD CAYDEN Vaughan/SHEILA , 06:33 PM , 07:02 PM [email or web address]
[2017-09-11 20:00] VITALS: BP 138/82; PULSE 67; RESP 20; TEMP 97.9; O2SAT 99
--- NOTE | 2017-09-11 20:40 | EKG ---
Date Performed: 09/10/2017 Time Performed: 18:17:31 PTAGE: 71 years EKG: Sinus rhythm LEFT ATRIAL ENLARGEMENT POSSIBLE INFERIOR MYOCARDIAL INFARCTION ABNORMAL ECG PREVIOUS TRACING : 07/28/2017 23.27 Since the previous tracing, no significant change noted DOCTOR: Vincenzo Ngo Interpretating Date/Time 09/11/2017 20:39:12
[2017-09-11 20:58] VITALS: O2SAT 98
--- NOTE | 2017-09-11 22:39 | HHI.PR ---
Subjective Remarks Patient seen this morning around 9 AM. Says she is feeling better after dialysis yesterday. She says that since it was bike week, she had bikers staying on her property, and they brought her lots of food and fruit juice which she has been overindulging in more so the past few days. She knows that she is to be on fluid restrictions. He denies missing any dialysis. She is unable to tell me the date, and is not certain of the year. at bedside says that mental status is at recent baseline. Objective Vital Signs Date Time Temp Pulse Resp B/P (MAP) Pulse Ox O2 Delivery O2 Flow Rate FiO2 09/11/17 20:00 97.9 67 20 138/82 (100) 99 09/11/17 16:50 67 16 159/83 (108) 96 Nasal Cannula 2.00 09/11/17 12:32 97.6 61 15 144/76 (98) 96 09/11/17 08:00 98.0 60 20 165/89 (114) 92 09/11/17 00:00 68 16 195/94 (127) 99 Nasal Cannula 2.00 I/O 09/10/17 09/10/17 09/10/17 09/11/17 09/11/17 09/11/17 07:00 15:00 23:00 07:00 15:00 23:00 Output Total 5000 ml Balance -5000 ml Output Hemodialysis 5000 ml Result Diagram: 09/11/17 0345 09/11/17 0345 Objective Remarks GENERAL: patient sitting up in bed. Appears comfortable. Very pleasant. appears know exactly what she is talking about, however Disoriented day, off by 1 year. SKIN: Warm and dry. HEAD: Normocephalic. EYES: No scleral icterus. No injection or drainage. NECK: Supple, trachea midline. slight JVD. CARDIOVASCULAR: Regular rate and rhythm without murmurs, gallops, or rubs. RESPIRATORY: Breath sounds equal bilaterally. No accessory muscle use. GASTROINTESTINAL: Abdomen soft, non-tender, nondistended. MUSCULOSKELETAL: No cyanosis, trace edema BACK: Nontender without obvious deformity. No CVA tenderness. A/P Assessment and Plan Ms. Chávez is a 71-year-old female with a history of end-stage renal disease on hemodialysis, hypertension, moderate to severe mitral regurgitation and tricuspid regurgitation with low normal systolic function with an EF of 50-55% per echocardiogram 07/29/2017 who presented to the hospital on 09/10/2017 for evaluation of shortness of breath and dyspnea on exertion. The ER physician notes indicate that she missed dialysis this afternoon. The patient is somewhat confused at the time of my visit and tells me she is in [place], does not know where her went, and states that she has not missed any dialysis sessions. Her dialysis physician/electric stop installer is Dr. Valencia. Chest x- ray in the emergency room shows new patchy bilateral interstitial infiltrates in both lung patel suggestive of either pulmonary edema versus pneumonia. Moderate stable cardiomegaly. //ESRD on HD -BUN 66, creatinine 5.58, estimated GFR 9 - worse than prior visit -Dr. Valencia, electric stop installer, consulted and patient is status post hemodialysis with 5 L of fluid removed -We will recheck renal function with labs in the morning and follow results -Monitor I&O every shift = Appreciate nephrology assistance. Continue to monitor. //Pulmonary edema secondary to fluid overload and valvular heart disease - Echocardiogram 07/29/2017 shows low normal left ventricular systolic function with EF estimated in the range of 50-55%, moderate to severe mitral valve and tricuspid valve regurgitation, and moderate concentric left ventricular hypertrophy. -Chest x-ray shows new patchy bilateral interstitial infiltrates in both lungs suggestive of pulmonary edema versus pneumonia with moderate stable cardiomegaly. -Symptoms resolved after hemodialysis - supports pulmonary edema as source of SOB/ULLOA -Continuous cardiac telemetry to monitor for dysrhythmia =much improved after dialysis. Continue to monitor. = //Hypertension -Resume home metoprolol 12.5 mg p.o. every 12 hours, Norvasc 10 mg p.o. daily -PRN clonidine 0.1 mg p.o. every 6 hours for systolic blood pressure greater than or equal to 170 or diastolic blood pressure greater than or equal to 100 -Monitor trends in blood pressure and adjust treatment as indicated = Blood pressure acceptable. Continue to monitor. //Severe mitral and tricuspid regurgitation. //Troponin elevation up to 0.26. Likely worsened by CHF and CTD, however flipped T waves from last admission. Cardiology consulted. Appreciate assistance. Severe mitral //DVT prophylaxis -Heparin 5000 units subcu every 12 hours and SCDs . Code Status Patient continues with mild cognitive deficits which appear to be baseline. This will need to be discussed with family tomorrow. . Discharge Planning likely discharge tomorrow when cleared by radiology, nephrology. home health for medication management and CHF education. Surendra Hernandez MD Sep 11, 2017 22:39
[2017-09-12] VITALS: BP 141/79; PULSE 62; RESP 20; TEMP 97.4; O2SAT 99
[2017-09-12] MEDS: ISOSORBIDE MONONITRATE 30 MG CR TAB (IMDUR) PO SCH (06:43)
[2017-09-12] MEDS: METOPROLOL TARTRATE 25 MG TAB PO SCH (07:56)
[2017-09-12] MEDS: DOCUSATE SODIUM 50 MG/SENNA 8.6 MG TAB PO SCH (07:56)
[2017-09-12] MEDS: FAMOTIDINE 20 MG TAB PO SCH (07:56)
[2017-09-12 08:00] VITALS: BP 162/92; PULSE 69; RESP 17; TEMP 96.8; O2SAT 97
[2017-09-12] MEDS: SODIUM CHLORIDE 0.9% FLUSH 10 ML FLUSH IV FLUSH SCH (08:02)
[2017-09-12] MEDS: HEPARIN SODIUM - SQ 10,000 UNITS/ML VIAL SQ SCH (08:02)
[2017-09-12] MEDS: CALCIUM ACETATE 667 MG CAP PO SCH ×2 (08:02→13:58)
[2017-09-12] MEDS ORDERED: CINACALCET HYDROCHLORIDE 30 MG TAB PO SCH (09:00)
[2017-09-12 09:02] LABS: BICARBONATE 27.6 MEQ/L (21.0-32.0); CALCIUM 8.4 MG/DL (8.5-10.1); CREATININE 5.16 MG/DL (0.50-1.00)
--- NOTE | 2017-09-12 09:25 | HHI.PR ---
Subjective Remarks Follow-up pulmonary edema. Improved symptoms denies shortness of breath. Seen during hemodialysis on room air. States she has been out of bed ambulating in the in the room. She is alert and oriented but not to month only. Discussed with nursing, patient stable for discharge but needs confirmation of baseline mental status with the family. Cleared for discharge by nephrology and cardiology. Troponin bump secondary to pulmonary edema and end-stage renal disease. Patient never had chest pain. Objective Vitals Vital Signs Date Time Temp Pulse Resp B/P (MAP) Pulse Ox O2 Delivery O2 Flow Rate FiO2 09/12/17 09:21 Nasal Cannula 3.00 09/12/17 00:00 97.4 62 20 141/79 (99) 99 09/11/17 20:58 98 Nasal Cannula 3.00 09/11/17 20:00 97.9 67 20 138/82 (100) 99 09/11/17 16:50 67 16 159/83 (108) 96 Nasal Cannula 2.00 09/11/17 12:32 97.6 61 15 144/76 (98) 96 I/O 09/11/17 09/11/17 09/11/17 09/12/17 09/12/17 09/12/17 07:00 15:00 23:00 07:00 15:00 23:00 Intake Total 720 ml Balance 720 ml Intake Oral 720 ml # Voids 0 Result Diagram: 09/11/17 0345 09/12/17 0733 Imaging Last Impressions Chest X-Ray 09/10/17 1406 Signed Impressions: Service Date/Time: Sunday, September 10, 2017 14:33 - CONCLUSION: There are new patchy bilateral interstitial infiltrates in both lung patel suggestive of either pulmonary edema versus pneumonia. Moderate stable cardiomegaly. Barrie Solano MD Objective Remarks GENERAL: patient sitting up in bed. Appears comfortable. Very pleasant. appears know exactly what she is talking about SKIN: Warm and dry. HEAD: Normocephalic. EYES: No scleral icterus. No injection or drainage. NECK: Supple, trachea midline. slight JVD. CARDIOVASCULAR: Regular rate and rhythm without, gallops, or rubs. RESPIRATORY: Breath sounds equal bilaterally. No accessory muscle use. GASTROINTESTINAL: Abdomen soft, non-tender, nondistended. MUSCULOSKELETAL: No cyanosis, trace edema BACK: Nontender without obvious deformity. No CVA tenderness. A/P Problem List: (1) dyspnea (2) End stage renal disease on dialysis ICD Code: N18.6 - End stage renal disease; Z99.2 - Dependence on renal dialysis Status: Chronic Assessment and Plan Ms. Chávez is a 71-year-old female with a history of end-stage renal disease on hemodialysis, hypertension, moderate to severe mitral regurgitation and tricuspid regurgitation with low normal systolic function with an EF of 50-55% per echocardiogram 07/29/2017 who presented to the hospital on 09/10/2017 for evaluation of shortness of breath and dyspnea on exertion. The ER physician notes indicate that she missed dialysis //ESRD on HD. Stable tolerating hemodialysis. Counseled regarding compliance. Fluid restriction and renal diet. //Pulmonary edema secondary to fluid overload and valvular heart disease. Improved with hemodialysis. Patient has been evaluated by cardiothoracic surgery in the past //Hypertension. Improved with home medications //Troponin elevation up to 0.26. Likely from CHF and CKD. Denies chest pain. Status post cardiology evaluation //DVT prophylaxis. Heparin 5000 units subcu every 12 hours and SCDs . Discharge Planning Discharge patient to home Condition on discharge: Improved Regular Diet as tolerated Ad Amanda activity Rx written: Sensipar and and isosorbide Follow-up with primary care physician, cardiology and nephrology Kash Medina MD Sep 12, 2017 09:25
--- NOTE | 2017-09-12 11:38 | PD.CARD.PN ---
Subjective Subjective Remarks No CP or SOB, in dialysis, removing 3 l today Objective Medications Current Medications Medications (Trade) Dose Ordered Sig/So Route Start Time Stop Time Status Last Admin Sodium Chloride 1,000 ml @ 0 mls/hr Q0M PRN OTHER 09/10/17 17:46 (Heparin Inj) 8,000 units UNSCH PRN IV FLUSH 09/10/17 18:00 Sodium Chloride 1,000 ml @ 200 mls/hr Q5H PRN IV 09/10/17 17:46 Sodium Chloride 1,000 ml @ 0 mls/hr Q0M PRN OTHER 09/10/17 17:46 (Mannitol Inj) 12.5 gm UNSCH PRN IV 09/10/17 18:00 Albumin Human 100 ml @ 60 mls/hr UNSCH PRN IV 09/10/17 18:00 (NS Flush) 5 ml UNSCH PRN IV FLUSH 09/10/17 18:00 (Heparin Inj) UNSCH PRN .XX 09/10/17 18:00 (Gentamicin Inj) 20 mg UNSCH PRN OTHER 09/10/17 18:00 (Zofran Inj) 4 mg UNSCH PRN IV PUSH 09/10/17 18:00 (Tylenol) 650 mg UNSCH PRN PO 09/10/17 18:00 (Benadryl) 25 mg UNSCH PRN PO 09/10/17 18:00 (Nitrostat Sl) 0.4 mg UNSCH PRN SL 09/10/17 18:00 (Catapres) 0.1 mg UNSCH PRN PO 09/10/17 18:00 09/10/17 19:00 (Gelfoam 12 Mm/7 Mm Top) 1 foam UNSCH PRN TOP 09/10/17 18:00 (NS Flush) 2 ml UNSCH PRN IV FLUSH 09/10/17 18:15 (NS Flush) 2 ml BID IV FLUSH 09/10/17 21:00 09/12/17 08:02 (Heparin Inj) 5,000 units Q12H SQ 09/10/17 20:00 09/12/17 08:02 (Narcan Inj) 0.4 mg UNSCH PRN IV PUSH 09/10/17 18:15 (Lenora-Colace) 1 tab BID PO 09/10/17 21:00 09/12/17 07:56 (Milk Of Magnesia Liq) 30 ml Q12H PRN PO 09/10/17 18:15 (Senokot) 17.2 mg Q12H PRN PO 09/10/17 18:15 (Dulcolax Supp) 10 mg DAILY PRN RECTAL 09/10/17 18:15 (Lactulose Liq) 30 ml DAILY PRN PO 09/10/17 18:15 (Catapres) 0.1 mg Q6H PRN PO 09/11/17 00:45 09/11/17 01:04 (Norvasc) 10 mg DAILY PO 09/11/17 09:00 09/12/17 07:57 (Lopressor) 12.5 mg Q12HR PO 09/11/17 09:00 09/12/17 07:56 (Pepcid) 20 mg DAILY PO 09/11/17 09:00 09/12/17 07:56 (Sensipar) 30 mg DAILY PO 09/12/17 09:00 (Phoslo) 1,334 mg TID PO 09/11/17 13:00 09/11/17 16:56 (Drisdol) 50,000 units Q7D PO 09/11/17 10:00 09/11/17 16:56 (Imdur) 30 mg DAILY@07 PO 09/11/17 11:00 09/12/17 06:43 Vital Signs / I&O Vital Signs Date Time Temp Pulse Resp B/P (MAP) Pulse Ox O2 Delivery O2 Flow Rate FiO2 09/12/17 09:21 Nasal Cannula 3.00 09/12/17 08:00 96.8 69 17 162/92 (115) 97 09/12/17 00:00 97.4 62 20 141/79 (99) 99 09/11/17 20:58 98 Nasal Cannula 3.00 09/11/17 20:00 97.9 67 20 138/82 (100) 99 09/11/17 16:50 67 16 159/83 (108) 96 Nasal Cannula 2.00 09/11/17 12:32 97.6 61 15 144/76 (98) 96 I/O 09/11/17 09/11/17 09/11/17 09/12/17 09/12/17 09/12/17 07:00 15:00 23:00 07:00 15:00 23:00 Intake Total 720 ml Output Total 3000 ml Balance 720 ml -3000 ml Intake Oral 720 ml Output Hemodialysis 3000 ml # Voids 0 Physical Exam GENERAL: IN NAD SKIN: Warm and dry. HEAD: Normocephalic. EYES: No scleral icterus. No injection or drainage. NECK: Supple, trachea midline. No JVD or lymphadenopathy. CARDIOVASCULAR: Regular rate and rhythm, 2/6 syst murmur, no gallops or rubs. RESPIRATORY: Breath sounds equal bilaterally. No accessory muscle use. GASTROINTESTINAL: Abdomen soft, non-tender, nondistended. MUSCULOSKELETAL: No cyanosis, trace edema. . Laboratory Laboratory Tests Test 09/11/17 13:22 09/12/17 07:33 Troponin I 0.15 NG/ML Blood Urea Nitrogen 62 MG/DL Creatinine 5.16 MG/DL Random Glucose 88 MG/DL Calcium Level 8.4 MG/DL Phosphorus Level 5.0 MG/DL Sodium Level 138 MEQ/L Potassium Level 4.5 MEQ/L Chloride Level 99 MEQ/L Carbon Dioxide Level 27.6 MEQ/L Anion Gap 11 MEQ/L Estimat Glomerular Filtration Rate 10 ML/MIN Assessment and Plan Problem List: (1) Congestive heart failure (CHF) ICD Codes: I50.9 - Congestive heart failure (CHF) Status: Chronic (2) End stage renal disease on dialysis ICD Codes: N18.6 - End stage renal disease; Z99.2 - Dependence on renal dialysis Status: Chronic (3) Hypertension ICD Codes: I10 - Hypertension Status: Chronic (4) Elevated troponin ICD Codes: R74.8 - Abnormal levels of other serum enzymes Status: Acute (5) Noncompliance ICD Codes: Z91.19 - Patient's noncompliance with other medical treatment and regimen Assessment and Plan CHF improved after removing fluid with dialysis. Mild trop elevation related to ESRD and CHF. Needs to be compliant with dialysis. OK to discharge from card standpoint. Problem Qualifiers (1) Hypertension: Qualified Codes: I10 - Essential (primary) hypertension Asya Carias MD Sep 12, 2017 11:38
[2017-09-12 12:00] VITALS: BP 153/84; PULSE 60; RESP 16; TEMP 96.6; O2SAT 98
--- NOTE | 2017-09-12 14:47 | HHI.NPPN ---
Subjective General Problems: Anemia, Edema, Heart Disease, Hypertension Renal Failure: End Stage Renal Disease History of Present Illness 71-year-old female with a history of ESRD on hemodialysis, hypertension, Hx of CHF, anemia, GERD, HLD, glaucoma, moderate to severe mitral regurgitation and tricuspid regurgitation. Patient presented to ED with increased SOB. Chest x- ray in the emergency room shows new patchy bilateral interstitial infiltrates in both lung patel suggestive of either pulmonary edema versus pneumonia. Moderate stable cardiomegaly. Nephrology is consulted for ESRD. Additional Remarks Patient seen during HD, no SOB, on room air, no chest pain. Review of Systems General Constitutional: Fatigue Respiratory Lungs: SOB, Cough, Sputum, Wheeze Cardiovascular Cardiac: Edema, ULLOA Objective Data Data 09/12/17 09/13/17 19:00 07:00 Output Total 3000 ml Balance -3000 ml Output Hemodialysis 3000 ml Vital Signs Date Time Temp Pulse Resp B/P (MAP) Pulse Ox O2 Delivery O2 Flow Rate FiO2 09/12/17 12:00 96.6 60 16 153/84 (107) 98 09/12/17 09:21 Nasal Cannula 3.00 09/12/17 08:00 96.8 69 17 162/92 (115) 97 09/12/17 00:00 97.4 62 20 141/79 (99) 99 09/11/17 20:58 98 Nasal Cannula 3.00 09/11/17 20:00 97.9 67 20 138/82 (100) 99 09/11/17 16:50 67 16 159/83 (108) 96 Nasal Cannula 2.00 -: 09/11/17 0345 09/12/17 0733 Physical Exam General Appearance: Well Nourished, No Acute Distress, Comfortable Eyes Eye Exam: Pupils Equal Throat Throat Exam: Oral Mucosa [place] & Moist Neck Neck Exam: Neck Supple Pulmonary Resp Exam: No Distress, Crackles, Rhonchi, Decreased Bases, Diminished Breath Sounds Cardiology CV Exam: Regular, Normal Sinus Rhythm Gastrointestinal/Abdomen GI Exam: Soft, Non-Tender, Bowel Sounds Present Extremeties Extremities Exam: Trace Edema Neurologic Neuro Exam: Alert, Awake, Oriented Psychiatric Psych Exam: Appropriate Responses Assessment/Plan Problem List: (1) End stage renal disease on dialysis ICD Codes: N18.6 - End stage renal disease; Z99.2 - Dependence on renal dialysis Status: Chronic Plan: ESRD with HD on // SAT Will continue phoslo and ergocalciferol Sensipar ordered based on labs at [facility] Told to restrict salt and fluid intake. HD now and 3 liters removed. Possible D/C, to continue HD as out patient. (2) Hypertension ICD Codes: I10 - Hypertension Status: Chronic Plan: Continue home medications Will monitor Problem Qualifiers (1) Hypertension: Qualified Codes: I10 - Essential (primary) hypertension Cathi Valencia MD Sep 12, 2017 14:47
--- NOTE | 2017-09-12 15:54 | HHI.DCPOC ---
Discharge Care Plan Diagnosis: (1) End stage renal disease on dialysis Your Health Problems Are: Difficulty with ADL Exercise Tolerance Goals to Promote Your Health * To prevent worsening of your condition and complications * To maintain your health at the optimal level Directions to Meet Your Goals Take your medications as prescribed Follow your dietary instruction Follow activity as directed Keep your appointments as scheduled Take your immunizations and boosters as scheduled If your symptoms worsen call your PCP, if no PCP go to Urgent Care Center or Emergency Room Smoking is Dangerous to Your Health. Avoid second hand smoke Call the 24-hour hour crisis hotline for domestic abuse at Kash Medina MD Sep 12, 2017 15:54
[2017-09-12 16:00] VITALS: BP 141/74; PULSE 64; RESP 17; TEMP 97.3; O2SAT 96
[2017-09-12 17:36] VITALS: O2SAT 98
== END 2017-09-12 19:23 | disposition home health service (06) | DRG 291 ==
LOC: NED 13:34 → NEDA 18:04 → NEDH 21:59 → N07B 09-11 17:49
PROVIDERS: ADMIT Internal Medicine; ATTEND Internal Medicine
PROC: 5A1D70Z Performance of Urinary Filtration, Intermittent, Less than 6 Hours Per Day (ICD-10-PCS; principal; 2017-09-10)
DX: I13.2 Hypertensive heart and chronic kidney disease with heart failure and with stage 5 chronic kidney disease, or end stage renal disease (principal); N18.6 End stage renal disease; R06.09 Other forms of dyspnea; I50.33 Acute on chronic diastolic (congestive) heart failure; I08.1 Rheumatic disorders of both mitral and tricuspid valves; E78.5 Hyperlipidemia, unspecified; K21.9 Gastro-esophageal reflux disease without esophagitis; H40.9 Unspecified glaucoma; R74.8 Abnormal levels of other serum enzymes; Z99.2 Dependence on renal dialysis; Z90.710 Acquired absence of both cervix and uterus; Z79.899 Other long term (current) drug therapy; Z91.19 Patient's noncompliance with other medical treatment and regimen
CPT/HCPCS: 71046; 80048; 80053; 81001; 82550; 82552; 83880; 84100; 84484; 85025; 85610; 85730; 90935; 93005; 94618; G0257; J1644; J1940